=== PATIENT | female | born 1945 | race Caucasian/White ===

== ENCOUNTER 2019-05-20 15:14 | Outpatient (CLI) | payer MEDICARE, OTHER, SELFPAY ==
--- NOTE | 2019-05-20 15:18 | DI.RAD.S_ITS ---
PROCEDURE: PAIN SI JOINT INJECTION INDICATIONS: SACROCCOCYGEAL DISORDER FINDINGS: Fluoroscopic spot filming was performed to verify placement of spinal needles at the right inferior sacroiliac joint level(s), as labeled on the films. Appropriate location(s) of the needle tip(s) was confirmed by injection of iodinated contrast. IMPRESSION: Successful needle tip localization for right inferior sacroiliac joint injection. Dictated by: Leobardo Syed M.D. on 05/20/2019 at 16:41 Approved by: Leobardo Syed M.D. on 05/20/2019 at 16:42
[2019-05-20 15:34] VITALS: BP 145/64; PULSE 59; RESP 16; TEMP 36.5; O2SAT 98
[2019-05-20 15:44] VITALS: BP 155/61; PULSE 59; RESP 15; O2SAT 99
[2019-05-20 15:49] VITALS: BP 146/55; PULSE 57; RESP 16; O2SAT 99
[2019-05-20] MEDS: BETAMETHASONE 30 MG/5 ML MDV 12 MG INJ (15:52)
[2019-05-20] MEDS: IOPAMIDOL 15 ML VIAL 3 ML INJ (15:52)
[2019-05-20 15:53] VITALS: BP 151/64; PULSE 53; RESP 16; O2SAT 98
--- NOTE | 2019-05-20 15:54 | PC.NURSE ---
NO SEDATION MEDS GIVEN DURING PROCEDURE. ASSISTING PT OFF TABLE AND TRANSPORTING TO POST PROC AREA IN STABLE CONDITION. PASSING RN CARE OF PT OFF TO MORENITA Crawford RN.
[2019-05-20 15:56] VITALS: BP 142/70; PULSE 61; RESP 18; O2SAT 97
--- NOTE | 2019-05-20 15:59 | P.PCN_ITS ---
Procedures Date/Time Date of procedure: 05/20/19 Time of procedure: 15:59 General Procedure description: PREOP Dx: Sacroiliac joint pain/DJD POST OP DX: Sacroiliac Joint Pain/DJD Procedures: Fluoroscopic guided contrast controlled right sacroiliac joint injection Physician: Bentley Barriga D.O. Indications: Lousie is referred by for treatment of right sacroiliac joint DJD Description of procedure Fluoroscopic guided, contrast controlled right sacroiliac joint injection Following review of allergies and review of potential side effects and complications, including, but not necessarily limited to, infection, allergic r eaction, local tissue breakdown, temporary as well as permanent nerve injury, paralysis, stroke and possible , the patient indicated that they understood and agreed to proceed. An informed consent was signed by the patient, witnessed by a nurse, and placed in the patient's chart. Additionally, other treatment options including modalities, medications, and physical therapy were reviewed with the patient. After review of previous anaesthesic history and IV conscious sedation the patient was deemed safe to proceed with todays procedure with IV conscious sedation as ASA class II designation. Safety time-out was performed to confirm patient ID, procedure to be performed and site of procedure. IV sedation was deemed unnecessary and thus not administered by the RN after DO order, titrated to patient comfort during the course of the procedure while the patient remained responsive to all verbal commands In the prone position following sterile prep and drape of the pelvic region, the hyper lucency on in the inferior aspect of the sacroiliac joint was identified fluoroscopically the skin was anesthetized be a 25 gauge 1 eventual with approximately 2cc of 1% lidocaine solution. At this point, a 22 gauge 3 in spinal needle was atraumatically introduced and advanced under fluoroscopic guidance into the inferior aspect of the right sacroiliac joint. Following negative aspiration, approximately 0.3 cc of Isovue-300 was injected confirming intra-articular placement without vascular uptake. Radiographic data, including multiple fluoroscopic views of the pelvis, reveals a spinal needle in the sacroiliac joint hyper lucent zone. Subsequent view show flow contrast tear superiorly and inferiorly within the joint capsule without vascular intrathecal uptake. At this point a total of 1cc or 2% lidocaine was combined with 1cc of 6mg of betamethasone was injected without incident. The procedure tolerated the procedure well without signs or symptoms of complications prior to transfer to the recovery area continued monitoring without incident. The patient was then transferred to the recovery area with a bur observed for an appropriate time after the injection. The patient reverted a vas score of 7 prior to the procedure and postprocedure vas of 1. Total fluoroscopy time: 7 sec Total conscious sedation time: 24 min Postop instructions The patient was provided with a pain like to continue to record the patient's response to the target specific procedure prior to the patient's follow-up visit with the referring physician. Additionally, specific post injection care instructions and a contact number to our office were provided if concerns arise regarding the possible complications associated with procedure are suspected. Bentley Barriga D.O. Complications: none
--- NOTE | 2019-05-20 16:09 | PC.NURSE ---
returned from procedure via w/c, able to transfer self to recliner, ice water provided and tolerated. assumed care from Shivani. reported, no sedation used.
--- NOTE | 2019-05-20 16:12 | PC.NURSE ---
no sedation recieved with procedure
== END 2019-05-20 16:14 | disposition home or self-care (01) ==
LOC: RAD 15:17
PROVIDERS: PCP Family Medicine; Referring Provider Physical Medicine & Rehabilitation; Visit Provider Physical Medicine & Rehabilitation
DX: M53.3 Sacrococcygeal disorders, not elsewhere classified (principal); M47.898 Other spondylosis, sacral and sacrococcygeal region
CPT/HCPCS: 27096; J0702; J2250; J3010

== ENCOUNTER → 2019-09-03 10:19 | Outpatient (CLI) | payer MEDICARE, OTHER, SELFPAY ==
[2019-09-04 07:44] LABS: COVID19 Sendout Not Detected (Not Detect)
== END ==
PROVIDERS: PCP Family Medicine; Visit Provider Physician Assistant
DX: Z01.818 Encounter for other preprocedural examination (principal)
CPT/HCPCS: 87635

== ENCOUNTER 2019-09-06 09:44 | Outpatient (CLI) | payer MEDICARE, OTHER, SELFPAY ==
[2019-09-06] VITALS (9 sets, daily range): BP systolic 142–196; BP diastolic 51–103; PULSE 52–59; RESP 14–16; TEMP 36.2; O2SAT 96–100
--- NOTE | 2019-09-06 09:46 | DI.RAD.S_ITS ---
PROCEDURE: PAIN L/SI FACET INJ/BLK 1STL INDICATIONS: SPONDYLOSIS FINDINGS: Fluoroscopic spot filming was performed to verify placement of spinal needles at the L5-S1 level(s), as labeled on the films. Appropriate location(s) of the needle tip(s) was confirmed by injection of iodinated contrast. Dictated by: Puneet Molina M.D. on 09/06/2019 at 13:02 Approved by: Puneet Molina M.D. on 09/06/2019 at 13:03
[2019-09-06] MEDS: MIDAZOLAM 5 MG/5 ML VIAL IV (11:08)
[2019-09-06] MEDS: IOPAMIDOL 15 ML VIAL 3 ML INJ (11:14)
[2019-09-06] MEDS: BUPIVACAINE 0.5% (PF) VIAL 2 ML INJ (11:14)
--- NOTE | 2019-09-06 11:15 | PC.NURSE ---
ASSISTING PT OFF TABLE AND TRANSPORTING TO POST PROC AREA IN STABLE CONDITION. PASSING RN CARE OFF TO CARMEN SAMUEL.
--- NOTE | 2019-09-06 11:21 | P.PCN_ITS ---
Procedures Date/Time Date of procedure: 09/06/19 Time of procedure: 11:21 General Procedure description: POST OP DIAGNOSIS 1. FACET ARTHROPATHY PROCEDURES 1. Right L5 and S1 MB BLOCKS PHYSICIAN: DO ROXANNE Fu Louise is referred by for treatment of Right Axial LBP. DESCRIPTION OF PROCEDURE Fluoroscopically guided, contrast-controlled right L5 and S1 medial branch blocks with 0.5cc of 0.5% Marcaine. Following review of allergy and review of potential side effects and complications, including, but not necessarily limited to, infection, allergic reaction, local tissue breakdown, nerve injury, paralysis, stroke and possible , the patient indicated that the patient understood and agreed to proceed. An informed consent document was signed by the patient, witnessed by a nurse, and placed in the patient's chart. After review of previous anaesthesic history and IV conscious sedation the patient was deemed safe to proceed with todays procedure with IV conscious sedation as ASA class II designation. Safety time-out was performed to confirm patient ID, procedure to be performed and site of procedure. IV sedation was accomplished with a combination of 2mg of Versed was administered by the RN after DO order, titrated to patient comfort during the course of the procedure while the patient remained responsive to all verbal commands In the prone position, following sterile prep and drape of the lumbar region, the right L5 and S1 anatomical location of the medial branch of the dorsal ramus was identified fluoroscopically. Subsequently an anesthetic skin wheal using 1% lidocaine solution was initiated at each of the anatomical spots. Subsequently then a 22-gauge 3.5-inch spinal needle was atraumatically introduced and advanced under fluoroscopic guidance at each of the corresponding sites at the right L5 and S1 MB. After negative aspiration, 0.2 cc of Isovue 200 was injected, confirming placement without vascular or intrathecal uptake. Subsequently then 0.5 cc of 0.5% Marcaine solution was injected at each of the corresponding sites at the right L5 and S1 medial branch locations. The patient tolerated the procedure well without signs or symptoms of complications. The procedure tolerated the procedure well without signs or symptoms of complications prior to transfer to the recovery area continued monitoring without incident. Post-procedure, the patient was monitored initiating provocative activities to measure the amount of relief from block of the facetogenic pain. The patient reported a VAS of 7 prior to the procedure and a post-procedure VAS of 1. It has been a pleasure to assist in the diagnostic and therapeutic care of your patient. Total Fluoroscopy Time: 4seconds Total Conscious Sedation Time: 24min POST OP INSTRUCTIONS The patient was provided with a Pain Log to complete over the next several hours and subsequent days prior to the patient's follow up with the ordering physician. If the patient has educational program assistant relief to the solution applied, then they may be a candidate for medial branch rhizotomy. The patient is aware, was provided, once again, with a Pain Log and will follow up with the referring physician for review and clinical correlation Bentley Barriga DO Complications: none
--- NOTE | 2019-09-06 11:44 | PC.NURSE ---
arrived to pre proc room via . Stable transfer from wc to chair, resumed monitoring by Tori Dominguez
== END 2019-09-06 11:45 | disposition home or self-care (01) ==
LOC: RAD 09:46
PROVIDERS: PCP Family Medicine; Referring Provider Physical Medicine & Rehabilitation; Visit Provider Physical Medicine & Rehabilitation
DX: M47.817 Spondylosis without myelopathy or radiculopathy, lumbosacral region (principal); M54.5 Low back pain
CPT/HCPCS: 64493; 99152; J0702; J2250; J3010

== ENCOUNTER → 2019-11-14 09:54 | Outpatient (CLI) | payer MEDICARE, OTHER, SELFPAY ==
[2019-11-15 03:50] LABS: COVID19 Sendout Not Detected (Not Detect)
== END ==
PROVIDERS: PCP Physician Assistant; Visit Provider Physician Assistant
DX: Z11.59 Encounter for screening for other viral diseases (principal)
CPT/HCPCS: 87635

== ENCOUNTER 2019-11-17 07:33 | Outpatient (CLI) | payer MEDICARE, OTHER, SELFPAY ==
[2019-11-17] VITALS (10 sets, daily range): BP systolic 152–210; BP diastolic 68–92; PULSE 48–57; RESP 6–21; TEMP 36.4; O2SAT 98–99
--- NOTE | 2019-11-17 07:36 | DI.RAD.S_ITS ---
PROCEDURE: PAIN L/S MED/LAT N RFA INDICATIONS: SPONDYLOSIS COMPARISON: None. FINDINGS: Fluoroscopic spot filming was performed to verify placement of spinal needles at the L5 and S1 level(s), as labeled on the films. Appropriate location(s) of the needle tip(s) was confirmed by injection of iodinated contrast. Dictated by: Puneet Molina M.D. on 11/17/2019 at 9:25 Approved by: Puneet Molina M.D. on 11/17/2019 at 9:25
[2019-11-17] MEDS: fentaNYL 100 MCG/2 ML INJ 50 MCG IV (08:35)
[2019-11-17] MEDS: MIDAZOLAM 5 MG/5 ML VIAL IV (08:35)
[2019-11-17] MEDS: BUPIVACAINE 0.5% (PF) VIAL 2 ML INJ (08:41)
--- NOTE | 2019-11-17 08:56 | P.PCN_ITS ---
Date/Time/Diagnoses Date of procedure: 11/17/19 Time of procedure: 08:56 Pre-procedure diagnosis: 1. RECALCITRANT FACET ARTHROPATHY Post-procedure diagnosis: same Procedure Notes Procedure: 1. RIGHT L5 MEDIAL BRANCH RADIOFREQUENCY NEUROTOMY AND RIGHT S1 DORSAL RAMUS BRANCH RADIOFREQUENCY NEUROTOMY Indications: Louise is referred by CHITO Anderson for treatment of facet arthropathy. Physician: Bentley Barriga Total Fluoroscopy time (seconds): 13 Total sedation minutes: 16 Complications: none Procedure in detail & Post-procedure care: DESCRIPTION OF PROCEDURE Right L5 medial branch radiofrequency neurotomy and right S1 dorsal ramus branch radiofrequency neurotomy under fluoroscopy with conscious sedation. The patient is well known to this clinic having undergone previous facet injections with good but temporary relief. The patient has experienced appropriate, concordant relief with previous facet and median branch blocks but the patient's pain has been recalcitrant to further conservative measures. Therefore, based upon the patient's relief and persistent symptoms, the patient is considered an appropriate candidate for facet rhizotomy. All of the patient's questions regarding the risks versus benefits of the procedure, including, but not limited to, bleeding, infection, temporary as well as lasting nerve injury, paralysis, stroke, and , as well treatment alternatives were answered to satisfaction. After review of previous anaesthesic history and IV conscious sedation the patient was deemed safe to proceed with today?s procedure with IV conscious sedation as ASA class II designation. Safety time-out was performed to confirm patient ID, procedure to be performed and site of procedure. IV sedation was accomplished with a combination of 2mg of Versed and 50mcg of Fentanyl was administered by the RN after DO order, titrated to patient comfort during the course of the procedure while the patient remained responsive to all verbal commands. After obtaining informed consent, denial of pertinent drug allergies, as well as being made aware of the potential risks of bleeding, infection, spinal cord trauma, paralysis, temporary and permanent nerve damage, seizure, stroke, and possible , the patient was brought to the fluoroscopy suite and positioned prone on the fluoroscopy table. The lumbar region was prepped with Betadine and covered with a fenestrated drape in the usual sterile fashion. Appropriate monitors applied including pulse oximeter, pulse, and blood pressure for regular monitoring throughout the procedure. After local infiltration using 1% lidocaine, under fluoroscopic guidance, a 10- cm RF insulated needle with a 10-mm active tip was positioned parallel to the junction of the right sacral ala and the superior articulating process where the S1 dorsal ramus resides. Needle placement was confirmed with sensory stimulation at 50 Hz, with motor stimulation of .5v on the right which produced local stimulation without radicular component. The stimulation was then increased to 2v with, once again, only local multifidus stimulation without radicular component. This was then followed by two discreet lesions performed at 80 degrees Celsius for 90 seconds each. The needle was then removed and the identical procedure was performed along the length of the right L5 medial branch with motor stimulation at .7v on the right. The patient tolerated the procedure well without signs or symptoms of complications prior to transfer to the recovery area continued monitoring without incident. The patient was then transferred to the recovery area where they were observed for an appropriate period of time after the injection. The patient was then transferred to the recovery area where they were observed for an appropriate period of time after the injection. The patient reported a VAS score of 5 prior to the procedure and a post- procedure VAS of 0. POST OP INSTRUCTIONS The patient was provided a Pain Log to continue to record the patient's response to the target-specific procedure prior to the patient's follow-up visit with the referring physician. Additionally, specific post-injection care instructions and a contact number to our office were provided if concerns arise regarding possible complications associated with the procedure are suspected.
--- NOTE | 2019-11-17 13:36 | PC.NURSE ---
0900 ST depression noted on tele. Dr. Barreto notified and MD evaluated patient. EKG ordered and done. Patient denied pain. HR in the 40s and 50s, bp elevated. Per Dr. Barreto patient may discharge and call her implementation consultant today. Dr. Barreto reported he would also call and notify the implementation consultant. Patient and son notified, with patient's permission.
== END 2019-11-17 09:52 | disposition home or self-care (01) ==
LOC: RAD 07:35
PROVIDERS: PCP Physician Assistant; Referring Provider Physician Assistant; Visit Provider Physical Medicine & Rehabilitation
DX: M47.817 Spondylosis without myelopathy or radiculopathy, lumbosacral region (principal); I49.9 Cardiac arrhythmia, unspecified
CPT/HCPCS: 64635; 93005; 93010; 99152; J2250; J3010

== ENCOUNTER → 2019-11-17 10:45 | Outpatient (CLI) | payer MEDICARE, OTHER, SELFPAY | PROVIDERS: PCP Physician Assistant; Referring Provider Physical Medicine & Rehabilitation; Visit Provider Physical Medicine & Rehabilitation | DX: Z01.818 Encounter for other preprocedural examination (principal) ==

== ENCOUNTER → 2019-12-14 09:40 | Outpatient (CLI) | payer MEDICARE, OTHER, SELFPAY ==
--- NOTE | 2019-12-14 09:43 | DI.RAD.S_ITS ---
PROCEDURE: XR LUMBAR SPINE MIN 4V INDICATIONS: Right-sided low back pain TECHNIQUE: 5 views of the lumbar spine were acquired. COMPARISON: None. FINDINGS: Bones: 5 nonrib-bearing vertebrae are present. There is dextroscoliotic bony alignmen, moderate in severity, centered at L3 t. No vertebral body compression fractures. No suspicious bony lesions. Degenerative disc disease is moderate along the lumbosacral spine and prominent at L3-4 and L4-5, and present to a near severe degree at L5-S1. Facet osteoarthritis shows a similar progression of prominence from L3 inferiorly. Soft tissues: Overlying bowel gas pattern is normal. No suspicious soft tissue calcifications. Oblique images: No pars defects. IMPRESSION: Moderate convex rightward scoliosis centered at L3 with degenerative disc disease and facet osteoarthritis that becomes progressively more prominent from L3 inferiorly and is most pronounced at L5-S1. Spinal and foraminal stenosis is present. Dictated by: Leobardo Syed M.D. on 12/14/2019 at 12:09 Approved by: Leobardo Syed M.D. on 12/14/2019 at 12:11
== END ==
PROVIDERS: PCP Physician Assistant; Referring Provider Physical Medicine & Rehabilitation; Visit Provider Physical Medicine & Rehabilitation
DX: M47.817 Spondylosis without myelopathy or radiculopathy, lumbosacral region (principal); M47.816 Spondylosis without myelopathy or radiculopathy, lumbar region; M51.36 Other intervertebral disc degeneration, lumbar region; M51.37 Other intervertebral disc degeneration, lumbosacral region; M41.86 Other forms of scoliosis, lumbar region; M51.26 Other intervertebral disc displacement, lumbar region; M53.3 Sacrococcygeal disorders, not elsewhere classified
CPT/HCPCS: 72110; 99213

== ENCOUNTER → 2020-03-12 09:51 | Outpatient (CLI) | payer MEDICARE, OTHER, SELFPAY ==
[2020-03-12 10:48] LABS: COVID19 -Nasal RAPID Negative (Negative)
== END ==
PROVIDERS: PCP Physician Assistant; Visit Provider Physical Medicine & Rehabilitation
DX: Z01.812 Encounter for preprocedural laboratory examination (principal); Z20.828 Contact with and (suspected) exposure to other viral communicable diseases
CPT/HCPCS: 87635; C9803

== ENCOUNTER 2020-03-13 09:27 | Outpatient (CLI) | payer MEDICARE, OTHER, SELFPAY ==
[2020-03-13] VITALS (10 sets, daily range): BP systolic 129–168; BP diastolic 58–72; PULSE 58–66; RESP 13–32; TEMP 36.2; O2SAT 97–100
--- NOTE | 2020-03-13 09:29 | DI.RAD.S_ITS ---
PROCEDURE: PAIN L/S TRANSFORAM INJECT JABARI COMPARISON: None. INDICATIONS: spondylosis FINDINGS: Fluoroscopic spot filming was performed to verify placement of spinal needles at the L4-L5 level(s), as labeled on the films. Appropriate location(s) of the needle tip(s) was confirmed by injection of iodinated contrast. Dictated by: Puneet Molina M.D. on 03/13/2020 at 12:34 Approved by: Puneet Molina M.D. on 03/13/2020 at 12:34
[2020-03-13] MEDS: BUPIVACAINE 0.25% (PF) VIAL 2 ML INJ (10:44)
[2020-03-13] MEDS: BETAMETHASONE 30 MG/5 ML MDV 6 MG INJ (10:44)
[2020-03-13] MEDS: IOPAMIDOL 15 ML VIAL 3 ML INJ (10:44)
[2020-03-13] MEDS: DEXAMETHASONE 10 MG/ML VIAL 20 MG INJ (10:44)
[2020-03-13] MEDS: MIDAZOLAM 5 MG/5 ML VIAL IV (10:50)
--- NOTE | 2020-03-13 11:01 | PM.PROC.IR.1 ---
Date/Time/Diagnoses Date of procedure: 03/13/20 Time of procedure: 11:01 Pre-procedure diagnosis: 1. FORAMINAL STENOSIS WITH LE SYMPTOMS Post-procedure diagnosis: same Procedure Notes Procedure: 1. FLUOROSCOPICALLY GUIDED CONTRAST CONTROLLED TRANSFORAMINAL EPIDURAL STEROID INJECTION - BILATERAL L4/5 Indications: Louise Monroe is referred by CHITO Anderson for treatment of Foraminal Stenosis with Bilateral LE Symptoms Physician: Bentley Barriga Total Fluoroscopy time (seconds): 21 Total sedation minutes: 10 Complications: none Procedure in detail & Post-procedure care: FINDINGS Foraminal Nerve Root Compression secondary to disc disease and facet hypertrophy DESCRIPTION OF PROCEDURE Following review of allergy and review of potential side effects and complications, including, but not necessarily limited to, infection, allergic reaction, local tissue breakdown, stroke, temporary or permanent nerve injury, paralysis, and possible , the patient indicated that the patient understood and agreed to proceed. An informed consent document was signed by the patient, witnessed by a nurse, and placed in the patient's chart. Additionally, other treatment options including medications, modalities, and physical therapy were reviewed with the patient. After review of previous anaesthesic history and IV conscious sedation the patient was deemed safe to proceed with today?s procedure with IV conscious sedation as ASA class II designation. Safety time-out was performed to confirm patient ID, procedure to be performed and site of procedure. IV sedation was accomplished with a combination of 2mg of Versed administered by the RN after DO order, titrated to patient comfort during the course of the procedure while the patient remained responsive to all verbal commands In the prone position following sterile prep and drape of the lumbar region, the left L4/5 posterior neuroforamen was identified fluoroscopically. The skin was anesthetized via a 25-gauge 1.5-inch needle with 1% lidocaine solution. At this point, a 25-gauge 3.5-inch spinal needle was atraumatically introduced and advanced under fluoroscopic guidance through the posterior left L4/5 neuroforamen to approximately the anterior aspect of the canal. Depth was confirmed on lateral view. Following negative aspiration, injection of approximately 1.5 cc of Isovue 200 under live fluoroscopy in the AP view confirmed excellent flow along the nerve root, into the epidural space without vascular or intrathecal uptake observed. Attention was then refocused to the right where the identical procedure was then replicated on the right. Radiological data, including multiple fluoroscopic views of the lumbosacral spine, reveal a spinal needle at the bilateral L4/5 posterior neuroforamen. Subsequent views show flow of contrast material flowing superiorly and inferiorly along the nerve root confirming epidural flow. Subsequently, a test dose of 1.5 cc of 1% lidocaine solution was administered and patient was observed for two minutes for signs or symptoms of complications, including abdominal pain, shortness of breath, bilateral upper or lower extremity weakness, nausea and vomiting, prior to steroid injection. At this point, a total of 3cc or 20mg of dexamethasone and 6mg of betamethasone was injected without incident. The procedure tolerated the procedure well without signs or symptoms of complications prior to transfer to the recovery area continued monitoring without incident. The patient was then transferred to the recovery area where they were observed for an appropriate time after the injection. The patient reported a VAS score of 9 in the shower prior to the procedure and a post-procedure VAS of 1. POST OP INSTRUCTIONS The patient was provided a Pain Log to continue to record their response to the target-specific procedure prior to follow-up visit with their referring physician. Additionally, specific post-injection care instructions and a contact number to our office were provided if concerns arise regarding possible complications associated with the procedure are suspected.
== END 2020-03-13 11:20 | disposition home or self-care (01) ==
LOC: RAD 09:28
PROVIDERS: PCP Physician Assistant; Referring Provider Physical Medicine & Rehabilitation; Visit Provider Physical Medicine & Rehabilitation
DX: M48.061 Spinal stenosis, lumbar region without neurogenic claudication (principal); M51.16 Intervertebral disc disorders with radiculopathy, lumbar region
CPT/HCPCS: 64483; 99152; J0702; J1100; J2250; J3010

== ENCOUNTER → 2020-06-09 11:48 | Outpatient (CLI) | payer MEDICARE, OTHER, SELFPAY ==
[2020-06-09 12:56] LABS: COVID19 -Nasal RAPID Negative (Negative)
== END ==
PROVIDERS: PCP Physician Assistant; Visit Provider Nurse Practitioner
DX: Z20.822 Contact with and (suspected) exposure to COVID-19 (principal)
CPT/HCPCS: 87635

== ENCOUNTER 2020-06-11 06:05 | Inpatient (IN) | payer MEDICARE, OTHER, SELFPAY ==
[2020-06-11] VITALS (20 sets, daily range): BP systolic 118–186; BP diastolic 48–90; PULSE 60–77; RESP 8–98; TEMP 35.9–36.6; O2SAT 10–100; BMI 23.6
[2020-06-11] MEDS: LACTATED RINGERS 1,000 ML 42 ML IV ×2 (07:33→09:28)
--- NOTE | 2020-06-11 07:40 | PM.PREOP ---
Pre-operative Note COVID-19 COVID-19 status: Negative Result date/Date tested (Pos, Neg/Pending): 06/09/20 Interval Note History & Physical reviewed/Exam performed by Physician: Yes Changes to H&P: No
[2020-06-11] MEDS: CLINDAMYCIN 600 MG/50 ML PIGGYBACK 50 MG IV (07:45)
--- NOTE | 2020-06-11 08:34 | SUR.OPER ---
Prone on spine table, head in foam head support, padded chest and pelvic supports, gel pad at knees, lower legs supported by pillows; nipples, genitalia and toes free of pressure, arms secured on foam padded arm boards at <90 degrees abduction. Tape over blanket at thigh secured to table.
[2020-06-11] MEDS: BUPIVACAINE 0.5% W/ EPI (PF) 30 ML VIAL INJ (08:42)
[2020-06-11] MEDS: BUPIVACAINE LIPOSOME 266 MG/20 ML VIAL INJ (08:42)
--- NOTE | 2020-06-11 11:51 | P.OP_ITS ---
Operative Date/Time/Diagnoses Date of procedure: 06/11/20 Time of procedure: 08:09 Pre-op diagnosis: 1. L3-4, L4-5, L5-S1 spinal stenosis 2. Lumbar scoliosis 3. Hx of lumbar laminectomy with epidural scarring and radiculopathy Post-op diagnosis: same Procedure & Clinicians Procedure: 1. L4-5, L5-S1 Postero-lateral and posterior interbody fusion 2. L4-5, L5-S1 interbody cage placement. 3. L4-5, L5-S1 decompressive laminectomy with bilateral facetecomies 4. L4-5, L5-S1 Posterior segmental instrumentation 5. L3-4 right hemilaminectomy 6. Harrold of bone marrow from iliac crest 7. Utilization of microsurgical technique and operating microscope Same procedure as scheduled: Yes Indications: Patient has been having chronic back pain and worsening lumbar radiculopathy. Patient failed multiple conservative management with worsening pain weakness and numbness in her lower extremity. Patient has been having difficulty performing activity of daily living. After discussing risks benefits of treatment options, patient elected proceed with surgery. Surgeon: Antelmo Patten Metallurgical Inspector: Flora Shaw Click Yes if Unassisted: No Anesthesia Type: General Operative Notes Closure Type: primary Specimen(s): none sent Prosthetic devices, grafts, tissues, transplants, or devices: Globus revolve screws, Rise cages Applied: catheter Estimated Blood Loss (mL): 50 Blood products transfused: none Procedure in detail: Patient was seen in the preoperative area. Risks and benefits of the surgery was discussed with the patient. Informed consent was obtained from the patient and placed in the chart. Surgical site was marked. Patient was taken to the operative room. General anesthesia was administered. Prophylactic antibiotic was given to the patient less than 30 min before the incision was made. Patient was placed into a prone position on the Mau table. Patient's back was then prepped and draped in the sterile fashion. Time- out was performed at this time. Using AP and lateral C-arm imaging the interval between L4-S1 was identified and marked on patient's back. A 2 inch incision 2 in from midline was made on the right side first. The fascia was incised in line with skin incision. Globus MARS retractors was placed inside the incision and docked onto the L4 and L5 lamina. Using microsurgical technique and operating microscope, a L4 and L5 laminectomy and L4-5 L5-S1 facetectomy was performed using a Kerrison rongeur. Patient was found have severe neural foraminal stenosis L3 levels. During the process of decompression more than 75% of bilateral L4-5 L5-S1 facets were removed in order to decompress the spinal canal and the lateral recess. The L4- 5 L5-S1 level was grossly unstable after the decompression was completed and requiring the fusion procedure. The disc space at L4-5, L5-S1 was identified. And a total diskectomy was performed at L4-5, L5-S1 level. The endplates were decorticated using a rasp and shaver. The total diskectomy and decortication was performed at L4-5, L5-S1 level in order to to accomplish a L4-5, L5-S1 fusion. The local bone from the laminectomy and facetectomy was saved for local bone grafting. After the total diskectomy and decortication was completed, Trifecta bone graft material was combined with local bone that was harvested earlier. At this time, a separate skin is incision was made over the iliac crest. A Jamshidi needle was inserted into the iliac crest through a separate skin incision. 5 cc of bone marrow aspiration was obtained through the separate skin incision using a Jamshidi needle from the iliac crest. The bone marrow aspiration was combined with local bone and the Trifecta bone grafting material. The bone grafting material was placed into the L4-5, L5-S1 interbody space along with two cages, one expandable cage at each level. The cages were expanded to their maximum height using the torque limiting screwdriver. The MARS retractor was then redirected over the L3-4 level. Using the micro surgical technique and operative microscope a L3 a hemilaminectomy was performed. Kerrison rongeur was used to undercut the facet to further decompress the lateral recess. The neural foramen was palpated and was patent o nce decompression was completed. \ At this time a mirror image incision was made on the left side. The fascia was incised in line with the skin incision. Globus MARS retractor was inserted and docked onto the L4-5, L5-S1 posterolateral gutter. Using the power drill, posterior-lateral decortication was performed at L4-5, L5-S1 level until bleeding cortical bone was identified. The remaining bone grafting material was placed into the L4-5 L5-S1 posterior lateral gutter he order to accomplish posterolateral fusion at the L4-5 L5-S1 levels. Using the double C-arm technique, pedicle screws were placed into the L4, L5, S1 pedicles bilaterally. This was done by placing the Jamshidi needle into the pedicles, then placing the guidewires over the Jamshidi needle, and finally placing the cannulated screws over the guidewires bilaterally. After the pedicle screws were placed, 2 titanium rods was locked into the heads of the pedicle screws using locking caps and torque limiting screwdriver. Total 6 pedicles screws were placed. After all the hardware was placed, and confirmed with AP and lateral C-arm imaging, the wound was then irrigated with sterile normal saline and packed with Ray-Bernadine g auze for 3 min to accomplish hemostasis. After the gauze was removed the deep fascia was closed with #1 Vicryl suture. The subcutaneous layer was closed with 2-0 Vicryl. The skin was closed with skin simón. Patient tolerated the procedure well. There were no complications. Complications: none Post-operative Condition: stable Disposition: PACU Plan for aftercare: Admit to inpatient hospital
--- NOTE | 2020-06-11 11:58 | DI.RAD.S_ITS ---
PROCEDURE: XR LUMBAR SPINE 2-3V INDICATIONS: L4-5, L5-S1 TLIF TECHNIQUE: 2 views of the lumbar spine were acquired. COMPARISON: [facility], , XR LUMBAR SPINE MIN 4V, 12/14/2019, 9:34. FINDINGS: 2 spot fluoroscopic intraoperative views demonstrating postsurgical changes related to L4-S1 posterior spinal fixation with interbody cage grafts. The hardware appears grossly intact. There is expected intraoperative alignment. Dictated by: Puneet Molina M.D. on 06/11/2020 at 12:11 Approved by: Puneet Molina M.D. on 06/11/2020 at 12:13
[2020-06-11] MEDS: HYDROMORPHONE 2 MG INJ IV ×4 (12:05→12:40)
[2020-06-11] MEDS: OXYCODONE/ACETAMINOPHEN 5/325 TABLET 1 TAB PO ×2 (12:24→12:55)
--- NOTE | 2020-06-11 12:53 | PC.NURSE ---
Day shift: Pt not on AC unit at this time ([id number]).
--- NOTE | 2020-06-11 13:05 | SUR.PHASEI ---
Bilat hearing aids returned to pts ears. Report called to CARMEN Kerr. Pt transferred to 219 by Ben Keys CNA and Emi Monahan RN with all belongings.
--- NOTE | 2020-06-11 13:19 | PC.NURSE ---
Day shift: On AC unit at approx 1309 from PACu. She is A&Ox4. Reports pain is better and on the way down at this time. Dressing on back is CDI. VS WNL. RA 97%. Denies any nausea or chest pain. Oriented to room and call light. Can wiggle toes but can't feel toes when they are touched. Call light in reach. Agrees to not get OOB w/o help from staff. Will continue w/ plan of care.
[2020-06-11] MEDS: SODIUM CHLORIDE 0.9% 1,000 ML 100 ML IV ×2 (13:24→23:56)
[2020-06-11] MEDS: OXYCODONE IR 10 MG TABLET PO ×3 (13:43→21:37)
[2020-06-11] MEDS: hydrOXYzine pamoate 25 MG CAPSULE PO (13:44)
[2020-06-11] MEDS: GLIMEPIRIDE 2 MG TABLET 4 MG PO (13:48)
[2020-06-11] MEDS: CLINDAMYCIN 900 MG/50 ML PIGGYBACK 50 MG IV (15:43)
[2020-06-11] MEDS: HYDROMORPHONE 0.5 MG INJ IV (15:44)
[2020-06-11] MEDS: ONDANSETRON 4 MG/2 ML INJ IV (15:44)
--- NOTE | 2020-06-11 15:53 | PT-IP ANOTE ---
Received PT orders and reviewed the chart. Contacted pt for initial evaluation but pt states she is in too much pain to participate. Educated pt on importance of early mobility and assist her to reposition on the bed. Will follow up tomorrow morning for PT eval.
[2020-06-11] MEDS: hydroCHLOROthiazide 25 MG TABLET PO (19:27)
[2020-06-11] MEDS: AMLODIPINE 5 MG TABLET PO (19:27)
[2020-06-11] MEDS: TELMISARTAN 40 MG TABLET 80 MG PO (19:27)
[2020-06-11] MEDS: SENNOSIDES 8.6 MG TABLET 17.2 MG PO (21:26)
[2020-06-11] MEDS: INSULIN DETEMIR 100 UNIT/ML INSULN.PEN 15 UNIT SUBCUT (21:26)
[2020-06-11] MEDS: PRAZOSIN 1 MG CAPSULE PO (21:26)
[2020-06-11] MEDS: DOCUSATE 100 MG CAPSULE PO (21:26)
--- NOTE | 2020-06-11 23:17 | PC.NURSE ---
BP elevated to 186/90 at 18:25. Patient had not taken her blood pressure medications today. Contaced Dr. Rosenthal who okayed for her daily amlodipine, hydrochlorothiazide, and Telmisartan to be given. BP went down to 162/78 at 20:00. Pain 5/70, given PRN oxycodone 10 mg 2X and hydromorphone 0.5 mg IV 1X. B, 302. Orlando catheter patent, clear yellow urine. Dressing on back cdi. NS @ 100ml/hr. Call light within reach.
[2020-06-12] MEDS: CLINDAMYCIN 900 MG/50 ML PIGGYBACK 50 MG IV (00:07)
[2020-06-12] MEDS: OXYCODONE IR 10 MG TABLET PO ×5 (00:07→21:35)
[2020-06-12 00:10] VITALS: BP 135/61; PULSE 72; RESP 18; TEMP 36.8; O2SAT 97
[2020-06-12 04:11] VITALS: BP 126/56; PULSE 68; RESP 16; TEMP 36.5; O2SAT 97
[2020-06-12 05:50] LABS: Hematocrit 28.5 % (36-46); Hemoglobin 9.4 g/dL (12.0-16.0)
[2020-06-12] MEDS: LEVOTHYROXINE 50 MCG TABLET PO (06:22)
[2020-06-12 07:15] VITALS: BP 134/57; PULSE 67; RESP 19; TEMP 36.7; O2SAT 94
--- NOTE | 2020-06-12 07:55 | PM.PNPO.1 ---
Subjective Subjective Date Patient Seen: 06/12/20 Time Patient Seen: 07:55 Interval history: POD #1 s/p L4-S1 TLIF with Dr. Patten. Patient has not been out of bed yet. She has a Orlando catheter in place. She complains of pain down her legs when she moves. her pain is well controlled with oxycodone, and Vistaril. She complains of heartburn this morning. Exam Vital Signs (past 8 hours): - 06/12/20 00:10 06/12/20 04:11 06/12/20 07:15 Temperature 98.2 F 97.7 F 98.1 F Pulse Rate 72 68 67 Respiratory Rate 18 16 19 Blood Pressure 135/61 126/56 L 134/57 L Pulse Oximetry 97 97 94 Oxygen Delivery Method Room Air Oxygen Flow Rate 0 Narrative Exam Narrative: Patient lying in bed no acute distress. She is alert and oriented x3. Calves are soft compressible, nontender bilaterally. SCDs on and functional. She is able to actively dorsiflex plantar flex. Dorsalis pedis pulses 2+. Objective Labs Result Diagrams: 06/12/20 05:05 Labs: Laboratory Results - last 24 hr 06/12/20 05:05 Hgb 9.4 L Hct 28.5 L PFSH Medical History Abnormal EKG Arthritis Cardiac arrhythmia Degenerative disc disease Diabetes mellitus, type 2 Disease of thyroid gland Edema Essential (primary) hypertension Facet arthropathy, lumbosacral Fluid retention Foraminal stenosis of lumbar region Herniated nucleus pulposus, L3-4 right Herniated nucleus pulposus, L4-5 History of echocardiogram (~02/15/20) Hyperlipidemia Hypertension Lumbar canal stenosis Multilevel foraminal stenosis Osteoarthritis Osteoarthritis of spine with radiculopathy, lumbar region Prolapse of bladder Pulled hamstring Pure hypercholesterolemia Rectal pain Sacral dysfunction Scoliosis Scoliosis due to degenerative disease of spine in adult patient Surgical History H/O pelvic surgery History of eye surgery History of laminectomy History of rectopexy History of sinus surgery History of tonsillectomy History of total hysterectomy with bilateral salpingo-oophorectomy (BSO) S/P epidural steroid injection Family History Family/Other Colon cancer Grandmother Breast cancer Sister Arthritis Asthma COPD (chronic obstructive pulmonary disease) Father Cancer Mother Diabetes mellitus Heart disease Hypertension Sister Stroke Brother Vision loss Social History household members: none Smoking Status: Never smoker alcohol intake: former Assessment & Plan Post-op Postoperative Procedures: Procedures Operation Date: 06/11/20 07:45 Actual Procedures Side Surgeon p L3-4 right hemilaminectomy, L4-5. L5-S1 TLIF w. posterior instrumentation Antelmo Patten MD Patient will mobilize with physical therapy today. No excessive bending, lifting, or twisting. Remove Orlando catheter once mobilizing in room. Tums as needed for heartburn. Continue current pain control. Discharge likely in next 1-2 days once mobilizing safely, voiding, and adequate pain control.
[2020-06-12] MEDS: TELMISARTAN 40 MG TABLET 80 MG PO (08:47)
[2020-06-12] MEDS: hydroCHLOROthiazide 25 MG TABLET PO (08:47)
[2020-06-12] MEDS: hydrOXYzine pamoate 25 MG CAPSULE PO ×3 (08:47→23:57)
[2020-06-12] MEDS: CHOLECALCIFEROL (VITAMIN D3) 5,000 UNIT TABLET 5000 UNIT PO (08:47)
[2020-06-12] MEDS: DOCUSATE 100 MG CAPSULE PO ×2 (08:48→21:35)
[2020-06-12] MEDS: MAGNESIUM OXIDE 400 MG TABLET 500 MG PO (08:48)
[2020-06-12] MEDS: AMLODIPINE 5 MG TABLET PO (08:48)
[2020-06-12] MEDS: CALCIUM CARBONATE 500 MG TAB PO ×2 (08:49→12:12)
[2020-06-12] MEDS: INSULIN DETEMIR 100 UNIT/ML INSULN.PEN 15 UNIT SUBCUT ×2 (09:05→21:36)
--- NOTE | 2020-06-12 10:06 | PT.IIE ---
Current Diagnoses Other secondary scoliosis, lumbar region (06/11/20) Other spondylosis with radiculopathy, lumbar region (06/11/20) Spinal stenosis, lumbar region without neurogenic claudication (06/11/20) Surgery Performed Operation Date: 06/11/20 07:45 Actual Procedures p L3-4 right hemilaminectomy, L4-5. L5-S1 TLIF w. posterior instrumentation - Antelmo Patten MD Surgical History (Last Reviewed 06/12/20 @ 07:56 by Flora Shaw PA-C) H/O pelvic surgery History of eye surgery History of laminectomy History of rectopexy History of sinus surgery History of tonsillectomy History of total hysterectomy with bilateral salpingo-oophorectomy (BSO) S/P epidural steroid injection Medical History (Last Reviewed 06/12/20 @ 07:56 by Flora Shaw PA-C) Abnormal EKG Arthritis Cardiac arrhythmia Degenerative disc disease Diabetes mellitus, type 2 Disease of thyroid gland Edema Essential (primary) hypertension Facet arthropathy, lumbosacral Fluid retention Foraminal stenosis of lumbar region Herniated nucleus pulposus, L3-4 right Herniated nucleus pulposus, L4-5 History of echocardiogram (~02/15/20) Hyperlipidemia Hypertension Lumbar canal stenosis Multilevel foraminal stenosis Osteoarthritis Osteoarthritis of spine with radiculopathy, lumbar region Prolapse of bladder Pulled hamstring Pure hypercholesterolemia Rectal pain Sacral dysfunction Scoliosis Scoliosis due to degenerative disease of spine in adult patient Physical Therapy Inpatient Evaluation/Re-Eval M1 PT/OT-IP Prior Functional Status Start: 06/11/20 13:46 Freq: NEEDED Status: Active Protocol: Document 06/12/20 10:06 AW (Rec: 06/12/20 10:55 AW [id number]) Medical Review Prior Functional Status Medical History Reviewed Yes Communication Pt is able to make needs known . On evaluation, she presents with increased anxiety and mild forgetfulness. Mobility and Gait Independent with household mobility. Pt also leaves the house for short shopping trips but reports pain interferes with longer community ambulation. Activities of Daily Living and IADL's Independent. Social History Household Members none Living Arrangements House Number of Floors (Floors) One Floor Number of Stairs To Enter/Railing? 1 IBRAHIMA either through the garage or the front door. In the garage, she can hold on to a washing machine. At the front of the house, there is a post to hold on to. Home Environment Standard Height Toilet,Tub/ Shower Home Equipment Front Wheel Walker,Straight Cane,Hospice Superintendent Additional Social History Comment Pt lives alone in [facility]. Her two sons also live in but both work timers inspector and there is no one pt identifies who may be able to stay with her at discharge. She does have helpful neighbors (Linda works at home and Vasiliy occasionally helps). M2 PT-IP Current Condition Start: 06/11/20 13:46 Freq: NEEDED Status: Active Protocol: Document 06/12/20 10:06 AW (Rec: 06/12/20 10:55 AW [id number]) Physical Therapy Current Condition Current Condition Evaluation Date 06/12/20 Treatment Diagnosis L3-4 hemilami, L4-S1 TLIF; difficulty in walking Onset Date 06/11/20 Precautions Lumbar Precautions Log Roll,No Twisting,Limit Bending,Lifting Restriction of 10 lbs,Gait Belt above Incisional Area M3 PT-IP Subjective Start: 06/11/20 13:46 Freq: NEEDED Status: Active Protocol: Document 06/12/20 10:06 AW (Rec: 06/12/20 10:55 AW [id number]) Subjective Physical Therapy Visit Type Type Initial Evaluation Visit Start Time 09:36 Visit Stop Time 10:06 Total Visit Minutes 30 Number of CASE OPERATOR Visits 0 Physical Therapy Visit Comments Patient Comments Pt is willing to participate with PT Patient Goals Pt is working on a discharge plan Therapy Pain Assessment Pain When Pain Assessed During Mobility Pain Present Pain Present Pain Reported Location back Intensity 4 Scale Used Numeric (0 - 10) Pain Management Techniques Re-positioning,Timing of Activity with Medications M4 PT-IP Mobility and Gait Start: 06/11/20 13:46 Freq: NEEDED Status: Active Protocol: Document 06/12/20 10:06 AW (Rec: 06/12/20 10:55 AW [id number]) PT-Bed Mobility Assessment Rolling Type of Rolling Log Rolling,Roll to Left Level of Assist Minimal Assistance,1 Person Assistance Supine to Sit Supine to Sit Minimal Assistance,1 Person Assistance Scooting Scooting to Edge of Bed Contact Guard Assistance PT-Transfer Assessment Sit to and From Stand Sit to and from Stand Minimal Assistance,1 Person Assistance,Use of Upper Extremities Equipment Transfer Assistive Device Gait Belt,Front Wheeled Walker Orthotic/Prosthetic Devices or Brace: No Transfers Transfer Destination Chair Transfer Technique Stand Step Pivot Transfer Ability Level of Assist Minimal Assistance,1 Person Assistance,Use of Upper Extremities Comments Mobility Comments Pt was lying in the bed as PT arrived. BP 151/79 HR 76. She needed min assist and max cues for log roll to her left side and SL to sit. In sitting, pt complained of wooziness. BP was stable 150/58 HR 76. She donned her slip on shoes SBA. Symptoms cleared and pt stood from the bed min A x 1 and used FWW to take short shuffling steps to ambulate around the bed to bedside chair ~20 feet min A x 1. Pt sat on the chair with max cues to use BUE for controlled descent. Pt was positioned with call light and all needs in reach. She stated preference to sit with legs down instead of reclined. Gait Assessment Gait Gait Assistance Required: Minimum Assistance,1 Person Assist Distance (Feet) 20 Able to Maintain Weight Bearing Status Yes During Gait Assistive Devices Assistive Device Gait Belt,Front Wheeled Walker Orthotic/Prosthetic Devices or Brace: No Gait Deviations General Gait Pattern Antalgic,Decreased Stride Length,Decreased Feet Clearance,Flexed Trunk Factors Limiting Gait Function Factors Limiting Gait Function Decreased Activity Tolerance, Decreased Sensation,Decreased Strength,Difficulty Following Directions,Limited Range of Motion,Pain,Poor Balance,Poor Safety Awareness Comments Gait Comments See mobility comments for details Stair Climbing Assessment Comments Stair Climbing Comments Not assessed. PT-Balance Assessment Sitting Balance and Reactions Static Sitting Balance Ability Good Dynamic Sitting Balance Ability Good Standing Balance and Reactions Static Standing Balance Ability Fair Dynamic Standing Balance Ability Fair Device Used FW M5 PT-IP Objective Assessments Start: 06/11/20 13:46 Freq: NEEDED Status: Active Protocol: Document 06/12/20 10:06 AW (Rec: 06/12/20 10:55 AW [id number]) Orientation Orientation/Cognition Level of Alertness Alert Orientation Name,Birthday,Month,Place, Situation Safety Awareness Decreased Safety Awareness Memory Description Short Term Impaired Comments Pt repeats herself frequently and present with heightened anxiety regarding d/c plan. She is aware of her precautions, but required cues to maintain them. Gross Range of Motion Lower Extremity ROM Assessment Within Functional Limits Strength Lower Extremity Strength Assessment Bilaterally Impaired Hip 4-/5 Knee 4/5 Coordination Assessment Gross Coordination Gross Coordination WNL Sensation Assessment Sensation Gross Sensation Right LE Impaired,Left LE Impaired Light Touch Impaired Sensation Description Numbness Comments Sensation Comments Peripheral neuropathy affects light touch sensation in bilateral feet. Pt does best with shoes for ambulation. Muscle Tone Muscle Tone WNL Yes M6 PT-IP Treatment Start: 06/11/20 13:46 Freq: NEEDED Status: Active Protocol: Document 06/12/20 10:06 AW (Rec: 06/12/20 10:55 AW [id number]) Physical Therapy Treatment Education Education Provided Precautions,Weight Bearing Status,Post-Op Packet,Safety Other Treatments Other Treatment Performed Educated pt on role of PT, plan of care, post op precautions, and safe use of of FWW. M7 PT-IP Assessment and Plan Start: 06/11/20 13:46 Freq: NEEDED Status: Active Protocol: Document 06/12/20 10:06 AW (Rec: 06/12/20 10:55 AW [id number]) PT Summary Assessment and Plan Potential Rehabilitation Potential Good Status of Condition at Evaluation Evolving Summary Impairments Pain,ROM,Strength,Balance, Sensation,Cognition,Bed Mobility,Transfers,Gait, Activity Tolerance Assessment Summary Mabel is a 74 yo woman seen for PT evaluation on POD 1 following L3-4 hemilaminectomy and L4-S1 TLIF. She lives alone and is independent in all regards at baseline. On evaluation, pt presents with heightened anxiety and requires min assist with all mobility using FWW. Pt identifies no one who will be able to stay with her timers inspector at discharge but is working closely with her children to make a plan. Pt will require assist up to 24/7 available assist at discharge . Home health may be needed if pt unable to leave the house. PT will continue to assess and refine discharge recommendation. Goals Bed Mobility Goal Independent Transfer Goal Independent,Front Wheeled Walker Gait Goal Independent,Front Wheel Walker Gait Distance 150 Other Goals - up/down one step with unilateral rail OR with FWW CGA Days to Meet Goals 5 Frequency of Treatment Frequency Of Treatment Twice a Day Treatment Plan Physical Therapy Treatment Plan Bed Mobility Training,Transfer Training,Gait Training, Therapeutic Exercise,Balance Retraining,Post Op Education, Discharge Planning,Hot or Cold Pack,Neuromuscular Re-ed Precautions Lumbar Precautions Log Roll,No Twisting,Limit Bending,Lifting Restriction of 10 lbs,Gait Belt above Incisional Area Recommendations To Nursing Amount of Assist Needed 1 Person Assist Discharge Recommendations PT Discharge Recommendations Home with Assistance,Home with 24/7 Assist Available,Home Health Other Discharge Recommendations depending on progress Equipment Needed for Home Before raised toilet seat with Discharge handles, BSC Transportation Needs at Discharge Private Vehicle
[2020-06-12] MEDS: GLIMEPIRIDE 2 MG TABLET 4 MG PO (11:04)
--- NOTE | 2020-06-12 11:33 | CM.DANOTE ---
Addendum entered by Dayami Calles LPN 06/12/20 12:29: [facility] will be by w/c van. Pt is updated. Says she is relieved that the plan is in place. Brochure for the [facility] provided and white board updated re d/c dispo. PASRR: completed. P[facility] DCP team will follow to facilitate. Addendum entered by Dayami Calles LPN 06/12/20 11:58: Met now with pt, introduced self and role. Observed her with OT Kimberlyn during part of her session. Discussed her d/c options. Pt says her sons both work and often out of state. She states her neighbors are supportive but cannot be relied upon for the assist and training that she needs now. Discussed snf option specifics and with OT Kimberlyn agreeing that this would be a very good option for her. Pt quite quickly agreed, noting the plans for supportive care she had anticipated made more sense after a snf rehab stay. Medicare choice list: discussed. Decision: [facility]. (pt's mother was there about 10 years ago). Pt also reports she has had COVID vaccine 1 and 2 and feels more confident re the snf setting now. Referral given now via to [facility] admissions and will await call back. PASRR: needed. P: snf at d/c 3/18 or >: when stable for d/c. Original Note: Discharge Planning/Care Management DCP: assessment: case received EMR reviewed. Discussed in Team Rounds. PT and OT will see pt for first time today. Pt is a 74 year old female who admitted yesterday for a scheduled spinal surgery: Dr. Patten. Admission status: INPT: Payer: Medicare and [facility] Documentation reveals that pt. lives alone with no ability for care other than helpful neighbors. Will check in now with pt for continuation of assessment process. Advanced directive, confirm from FAMILY Start: 06/11/20 14:05 Freq: Q24H Status: Active Protocol: Document 06/11/20 14:05 YAD (Rec: 06/11/20 14:05 YAD [id number]) Advance Directive, confirm on record Time 14:05 Person contacted patient Copy received No CM Discharge Assessment Start: 06/12/20 11:32 Freq: Status: Active Protocol: Document 06/12/20 11:32 ITV (Rec: 06/12/20 11:33 ITV [id number]) Discharge Planning Assessment Advance Directives? Yes Advance Directives on File No History Provided By Medical Record Prior Living Arrangements House Household Members none Is patient alert and oriented? Yes Pre-Anesthesia Assessment Start: 06/05/20 11:43 Freq: Status: Complete Protocol: Document 06/05/20 11:43 VLErica (Rec: 06/05/20 12:16 [facility] [id number]) Pre-Anesthesia Assessment Preferred Name Mabel Patient Information Reviewed Via Chart Review,Phone Assessment Assessment Completed With Patient Diagnostic Results BMP/CMP,EKG,Urinalysis Comment A1c, lipids, covid Primary Care Provider Ivelisse Flowers Seen Specialist in Last 12 Months Yes Specialist Seen [address],Orthopedist,Other Comment Dr Linus OBRIEN Primary Language Tamazight Preferred Language Tamazight Public Interviewer Required No Height 163.83 cm Hearing Ability Hard of Hearing,Use of Hearing Aid Visual Impairment No Limitations Dentition Type Teeth, Natural Present Barriers to Learning Auditory Other Aids No Hx Anesthesia Reactions No Hx Family Anesthesia Reaction No Hx Malignant Hyperthermia No Hx Blood Transfusions No Hx Blood Transfusion Reaction No Anesthesia Review Requested Yes: Reviewed prior to scheduling Data Report Analyst No alcohol intake current alcohol intake frequency other Alcohol Intake Frequency Other: occasionally ie once a month Smoking Status Never smoker Substance Use Type does not use Pain Present Pain Reported Comment back pain Musculoskeletal Symptoms Abnormal Gait,Back Pain, Difficulty Walking History of Falling (Recent or History of No ) Patient is completely paralyzed or No completely immobile Ambulatory Aid None/bed rest/nurse assist Gait/Transferring Normal/bedrest/immobile Mental Status Oriented to own ability Is patient on oxygen? No Does patient have [place]/SOB No Hx Sleep Apnea No CPAP/BIPAP use not prescribed Will Bring CPAP/BIPAP DOS No Currently Taking a Beta Rodriguez No Can You Climb a Flight of Stairs Without Yes: ? SOB Hx Chest Pain No Hx SOB No Hx Syncope or Dizziness No Anti-Coagulant Therapy Yes: Aspirin 81 mg daily Has a [address] Yes: David Rios MD - [facility] Cardiac Testing Yes: Echo 02/16; Stress 2017 Hx Pacemaker/ICD No Pacemaker Rep Required? No Cardiac Clearance Received Yes Diet Type At Home Diabetic dysphagia No Gastrointestinal Symptoms Reflux Bladder Pattern Nocturia Urinary Catheter Present No Hx Urinary Self Catheterization No Diabetes Yes HgbA1C 8.9 Date 05/10/20 Comment Had two steroid injections during this time frame Patient No Lactating No Hx Drug Resistant Organism No Presence of External or Internal Medical No Devices Have you had any close contact with No someone diagnosed with COVID-19? Are you experiencing any of these No symptoms symptoms? Evaluation/Screening for possible COVID- Yes 19 infection completed? Comment Covid test 06/09/20 @ [facility] Marital Status / Lives With none Prior Living Arrangements House Number of Floors (Floors) One Floor Number of Stairs To Enter/Railing? 1 step into house Support System Family Does the Patient Have Assistance After Yes Surgery Patient Discharge Plan Description Return Home Feels Safe in Current Environment Yes Been Physically Hurt or Threatened By a No Person in Current Environment Do you have thoughts of harming yourself None or others? Are you currently considering suicide? No Do you have a plan to hurt yourself or No Plan others? Do You Have Any Spiritual Beliefs That No May Affect Your HC Choices? Do You Have Any Cultural Practices That No May Affect Your HC Choices? Who Can We Speak to About Patient's Care Friends & Family Identifying Code for Release of Patient Declined Information Health Care Proxy/Next of Kin Jose E Elkins Health Care Proxy Phone Number [place] - [phone]; Jose E Emergency Contact Name Jose E Elkins Emergency Contact Phone Number [place] - [phone]; Jose E Advance Directives? Yes Requested Patient Bring Advanced Yes Directives DOS PAC Instructions Assistance for 24 hours post- op,Diabetes instructions,Do not shave/clip surgical site, Durable medical equipment, Medications to take/avoid, Nasal antibiotic,No ETOH/ petroleum product on skin DOS, NPO,Post-op transportation,Pre -op antibiotic,Pre-surgical wash,Sensory aids,Sturdy shoes /comfortable clothes,Do not bring valuables and remove jewelry
--- NOTE | 2020-06-12 12:02 | OT.IP.EVAL ---
Current Diagnoses Other secondary scoliosis, lumbar region (06/11/20) Other spondylosis with radiculopathy, lumbar region (06/11/20) Spinal stenosis, lumbar region without neurogenic claudication (06/11/20) Surgery Performed Operation Date: 06/11/20 07:45 Actual Procedures p L3-4 right hemilaminectomy, L4-5. L5-S1 TLIF w. posterior instrumentation - Antelmo Patten MD Past Medical History (Last Reviewed 06/12/20 @ 07:56 by Flora Shaw PA-C) Abnormal EKG Arthritis Cardiac arrhythmia Degenerative disc disease Diabetes mellitus, type 2 Disease of thyroid gland Edema Essential (primary) hypertension Facet arthropathy, lumbosacral Fluid retention Foraminal stenosis of lumbar region Herniated nucleus pulposus, L3-4 right Herniated nucleus pulposus, L4-5 History of echocardiogram (~02/15/20) Hyperlipidemia Hypertension Lumbar canal stenosis Multilevel foraminal stenosis Osteoarthritis Osteoarthritis of spine with radiculopathy, lumbar region Prolapse of bladder Pulled hamstring Pure hypercholesterolemia Rectal pain Sacral dysfunction Scoliosis Scoliosis due to degenerative disease of spine in adult patient Surgical History (Last Reviewed 06/12/20 @ 07:56 by Flora Shaw PA-C) H/O pelvic surgery History of eye surgery History of laminectomy History of rectopexy History of sinus surgery History of tonsillectomy History of total hysterectomy with bilateral salpingo-oophorectomy (BSO) S/P epidural steroid injection Occupational Therapy Inpatient Evaluation/Re-Eval M1 PT/OT-IP Prior Functional Status Start: 06/12/20 12:15 Freq: NEEDED Status: Active Protocol: Document 06/12/20 12:15 [facility] (Rec: 06/12/20 12:31 [facility] [id number]) Medical Review Prior Functional Status Medical History Reviewed Yes Communication Per PT eval-Pt is able to make needs known . On evaluation, she presents with increased anxiety and mild forgetfulness. Mobility and Gait Independent with household mobility. Pt also leaves the house for short shopping trips but reports pain interferes with longer community ambulation. Activities of Daily Living and IADL's Independent. Social History Household Members none Living Arrangements House Number of Floors (Floors) One Floor Number of Stairs To Enter/Railing? 1 IBRAHIMA either through the garage or the front door. In the garage, she can hold on to a washing machine. At the front of the house, there is a post to hold on to. Home Environment Standard Height Toilet,Tub/ Shower Home Equipment Front Wheel Walker,Straight Cane,Laboratory Technologist Additional Social History Comment Pt lives alone in [facility]. Her two sons also live in but both work multimedia educational specialist and there is no one pt identifies who may be able to stay with her at discharge. She does have helpful neighbors (Linda works at home and Vasiliy occasionally helps). M2 OT-IP Current Condition Start: 06/12/20 12:15 Freq: Status: Active Protocol: Document 06/12/20 12:15 [facility] (Rec: 06/12/20 12:31 [facility] [id number]) Occupational Therapy Current Condition Current Condition Evaluation Date 06/12/20 Treatment Diagnosis S/p L4-S1 TLIF with post. inst . s/p L3-4 hemilaminectomy Diagnosis Onset Date 06/11/20 Post Operative Precautions Lumbar Precautions Log Roll,No Twisting,Limit Bending,Lifting Restriction of 10 lbs,Gait Belt above Incisional Area M3 OT- IP Subjective and Pain Start: 06/12/20 12:15 Freq: Status: Active Protocol: Document 06/12/20 12:15 [facility] (Rec: 06/12/20 12:31 [facility] [id number]) OT- Subjective Occupational Therapy Visit Type Type Initial Evaluation Visit Start Time 11:13 Visit Stop Time 12:01 Total Visit Minutes 48 Occupational Therapy Visit Comments Patient Comments Pt agree to get up for OT eval . Patient/Caregiver Goals TO go home. OT Pain Assessment Pain When Pain Assessed During Mobility Pain Present Pain Present Pain Reported Location back Intensity 5 Scale Used Numeric (0 - 10) M4 OT- IP ADL's Start: 06/12/20 12:15 Freq: Status: Active Protocol: Document 06/12/20 12:15 [facility] (Rec: 06/12/20 12:31 [facility] [id number]) OT CNJ-[place] General Evaluation Self-Feeding Ability Independent OT ADL-Grooming General Evaluation Grooming Ability Standby Assistance Areas Needing Assistance Retrieving/Set-up of Grooming Items OT ADL-Oral Care General Eval Oral Care Ability Independent Comments Oral Care Comments Pt did while seated. Explained to pt if standing to either spit into a cup or hinge at her hips to lean and spit to the sink in order to best follow her back precautions. OT ADL-Dressing General Eval Lower Body Dressing Ability Maximum Assistance Comments OT Dressing Comments Able to practice use of cupola worker and sock aid for LB dressing needs. Pt at this time has too much pain to be able to cross her legs like she did before for dressing needs prior to her back surgery. OT ADL-Toileting General Evaluation Toileting Ability Moderate Assistance Comments OT Toileting Comments Pt not able to reach from the back and would benefit from assist or toilet paper aid. OT ADL-Bathing Comments OT Bathing Comments Not performed. M5 OT- IP IADL's Start: 06/12/20 12:15 Freq: Status: Active Protocol: Document 06/12/20 12:15 [facility] (Rec: 06/12/20 12:31 [facility] [id number]) OT-Instrumental Activities of Daily Living Home Safety Awareness Awareness of Need for Assistance at Home Good Awareness Ability to Problem Solve Emergency Able to Problem Solve Situations Medication Management Medication Management Comments Pt a little groggy and at this time would be best to have assist for IADl needs. Money Management Money Management Comments Pt a little groggy and at this time would be best to have assist for IADl needs. Meal Preparation Meal Preparation Comments Pt a little groggy and at this time would be best to have assist for IADl needs. Coder Coder Comments Pt a little groggy and at this time would be best to have assist for IADl needs. M6 OT- IP Functional Cognition Start: 06/12/20 12:15 Freq: Status: Active Protocol: Document 06/12/20 12:15 [facility] (Rec: 06/12/20 12:31 [facility] [id number]) Cognitive Factors Limiting Selfcare Function Cognitive Ability Level of Alertness Alert Patient Orientation Name,Age,Birthday,Month,Date, Year,Day of Week,Place, Situation Attention Span Ability Capable of Focused Attention, Capable of Sustained Attention Ability to Follow Commands Able to Follow One Step Commands Safety Awareness Decreased Recall of Precautions Problem Solving Ability Needs Assist to Identify Solutions Cognitive Comments Cognitive Assessment Comments Pt a little groogy and not able to recall her back precautions and at time needing instructions repeated. Pt also a little [place] due to therapist having to wear a mask. Pt needing vc, simple commands to follow for safety with FWW, technique form sit to stand and how to use LB dressing equipment. OT- Vision and Hearing OT- Vision Assessment Visual Acuity Glasses All The Time M7 OT- IP Mobility and Balance Start: 06/12/20 12:15 Freq: Status: Active Protocol: Document 06/12/20 12:15 [facility] (Rec: 06/12/20 12:31 [facility] [id number]) OT-Transfer Assessment Sit to and From Stand Sit to and from Stand Minimal Assistance Transfers Transfer Ability Minimal Assistance,Moderate Assistance Technique Transfer Destination Chair,Toilet Transfer Technique Stand Step Pivot Devices Transfer Assistive Devices Gait Belt,Front Wheeled Walker Comments Mobility Comments LANCE to MODA to stand especially from lower surfaces or heavy use of grab bar assist. Once on her feet CGA with FWW. Pt's FWW is too short and suggested that she get a standard FWW. OT- Gait Assessment Comments Gait Ability Comments CGA with FWW in the room. OT- Balance Assessment Sitting Balance and Reactions Static Sitting Balance Ability Normal Dynamic Sitting Balance Ability Good Standing Balance and Reactions Static Standing Balance Ability Fair M8 OT- IP Objective Assessments Start: 06/12/20 12:15 Freq: Status: Active Protocol: Document 06/12/20 12:15 [facility] (Rec: 06/12/20 12:31 [facility] [id number]) OT-Muscle Tone Assessment Muscle Tone WNL Yes M9 OT- IP Assessment and Plan Start: 06/12/20 12:15 Freq: Status: Active Protocol: Document 06/12/20 12:15 [facility] (Rec: 06/12/20 12:31 [facility] [id number]) OT Summary Assessment and Plan Potential Rehabilitation Potential Good Analytic Complexity at Evaluation Low Summary OT Impairments Pain,Balance,Functional Cognition,Functional Mobility, Grooming,Dressing,Toileting, Bathing,Toilet Transfers, Shower Transfers,Activity Tolerance Progress Towards Goals Slow Progress due to Pain,Slow Progress due to Activity Tolerance Assessment Summary Pt low complexity and main barriers are step at home, now needing MODA for ADL and functional mobility needs and that pt lives alone. Pt would benefit from skilled rehab to continue to practice with LB dressing equipment, go over equipment needs, and to improve her safety and independence for all needs prior to going home. Pt is very motivated and pleasant. Goals Grooming Goal Independent Dressing Goal Independent Toileting Goal Independent Bathing Goal Independent Toilet Transfer Goal Independent Shower Transfer Goal Independent Patient/Caregiver Education Goal Demonstrate Post-Op Precautions Days to Meet Goals 12 Frequency of Treatment Frequency Of Treatment Once a Day Treatment Plan OT Treatment Plan ADL Training,Functional Cognition Training,Functional Mobility,Patient/Family Education,Discharge Planning Other Treatment Recommendations and Next Stand at sink with FWW for Treatment Focus grooming needs. Discharge Recommendations OT Discharge Recommendations SNF Rehab Home Equipment Needs defer to SNF Transportation Needs at Discharge Wheelchair/Cabulance
[2020-06-12] MEDS: MAG HYDROX/ALUM/SIMETH 30 ML UDC PO (12:27)
--- NOTE | 2020-06-12 12:38 | CM.DPNOTE ---
Faxed clinicals per Dayami to [facility] on 06/12/20 for referral. Fax confirmation received. Selma Mcclain CM Asst.
--- NOTE | 2020-06-12 12:54 | PC.NURSE ---
Day shift: Pt pain controlled per May at this time. Pt OOB w/ PT and tolerated well. No nausea today. Does complain of stomach/GI upset r/t hernia she has. Encouraged to not drink any carbonated beverages. VS WNL. Has been on RA 98%. Encouraged to use I.S. as directed. Sitting in chair for lunch and wants to get some sleep this afternoon. Surgery MD's may want to order a consult to hospitalist r/t Pt's poor blood glucose control pot-op. Thisa press writer did inform Dr Tejada of this but order has not been placed at this time. Plan is SNF on . CMS intact and PPP. Dressing is CDI. Will continue w/ plan of care.
--- NOTE | 2020-06-12 14:20 | PC.NURSE ---
Day shift: Ortho PA (Maday) made aware of Pt's elevated blood glucose levels at approx 1400 today. PA stated he would order sliding scale insulin.
[2020-06-12 15:40] VITALS: BP 142/61; PULSE 73; RESP 18; TEMP 37.2; O2SAT 96
--- NOTE | 2020-06-12 16:24 | PT.IPTN ---
Current Diagnoses Other secondary scoliosis, lumbar region (06/11/20) Other spondylosis with radiculopathy, lumbar region (06/11/20) Spinal stenosis, lumbar region without neurogenic claudication (06/11/20) Surgery Performed Operation Date: 06/11/20 07:45 Actual Procedures p L3-4 right hemilaminectomy, L4-5. L5-S1 TLIF w. posterior instrumentation - Antelmo Patten MD Physical Therapy Treatment Note M2 PT-IP Current Condition Start: 06/11/20 13:46 Freq: NEEDED Status: Active Protocol: Document 06/12/20 10:06 AW (Rec: 06/12/20 10:55 AW [id number]) Physical Therapy Current Condition Current Condition Evaluation Date 06/12/20 Treatment Diagnosis L3-4 hemilami, L4-S1 TLIF; difficulty in walking Onset Date 06/11/20 Precautions Lumbar Precautions Log Roll,No Twisting,Limit Bending,Lifting Restriction of 10 lbs,Gait Belt above Incisional Area M3 PT-IP Subjective Start: 06/11/20 13:46 Freq: NEEDED Status: Active Protocol: Document 06/12/20 15:54 SP (Rec: 06/12/20 17:08 SP [id number]) Subjective Physical Therapy Visit Type Type Treatment Note Visit Start Time 15:54 Visit Stop Time 16:24 Total Visit Minutes 30 Number of CLAIM PROCESSING SPECIALIST Visits 1 Physical Therapy Visit Comments Patient Comments Pt willing to work with PT. Patient Goals Pt reports wanting to go to rehab and improve strength to gain strength and endurance toward independance before returning home. Therapy Pain Assessment Pain When Pain Assessed At Rest Pain Present Pain Present Pain Reported Location back Intensity 5 Scale Used 5/10 at rest and walking, 6/10 during bed mobility Description Acute,Pressure,Spasm,Tightness ,With Movement Pain Behaviors Facial Grimacing,Guarding Pain Management Techniques Apply Cold,Re-positioning M4 PT-IP Mobility and Gait Start: 06/11/20 13:46 Freq: NEEDED Status: Active Protocol: Document 06/12/20 15:54 SP (Rec: 06/12/20 17:08 SP [id number]) PT-Bed Mobility Assessment Rolling Type of Rolling Log Rolling,Roll to Right Level of Assist Contact Guard Assistance Sit to Supine Sit to Supine Minimal Assistance,1 Person Assistance,Bedrails PT-Transfer Assessment Sit to and From Stand Sit to and from Stand Contact Guard Assistance, Minimal Assistance,1 Person Assistance,Use of Upper Extremities Equipment Transfer Assistive Device Gait Belt,Front Wheeled Walker Orthotic/Prosthetic Devices or Brace: No Transfers Transfer Destination Bed Transfer Technique pt ambulated using FWW Transfer Ability Level of Assist Contact Guard Assistance,1 Person Assistance,Use of Upper Extremities Comments Mobility Comments Pt reported wanted therapist to check with nursing when due to pain med, muscle relaxer due to 5/10 LB pain. Nursng reported is due for both and can come dispense. Pt had good recalll 3/3 precautions. Completed scoot to EO chair SBA using BUE on chair arms, Sit>stand BUE push from chair arms CG- 10% A with, stable over LEs using BUE transition to FWW for support. Pt ambulated further distance into hallway approx 100 ft total with report of low back muscles loosening up but no change in pain 5/10 in low back. When returned to room, cued for straight back/ hip hinge while reaching back for low descent to bed. sit>L sidelying Min A for BLE onto bed then cued keep knees bent and log roll onto back. Self repositioning to center in bed . Pt able to reposition bed self using controls. Bed alarmed, call light and all needs in reach. Pt requested to renotify nurse of medication assist for pain increased to 6/10 post bed mobilitiy. RADIATION THERAPY TECHNOLOGIST arrived and provided this medication request and she stated will follow up with this. Gait Assessment Gait Gait Assistance Required: Contact Guard Assist,1 Person Assist Distance (Feet) 100 Able to Maintain Weight Bearing Status Yes During Gait Assistive Devices Assistive Device Gait Belt,Front Wheeled Walker Orthotic/Prosthetic Devices or Brace: No Gait Deviations General Gait Pattern Antalgic,Decreased Stride Length,Decreased Feet Clearance,Flexed Trunk,Narrow Based Gait Factors Limiting Gait Function Factors Limiting Gait Function Decreased Activity Tolerance, Decreased Sensation,Decreased Strength,Difficulty Following Directions,Limited Range of Motion,Pain,Poor Balance,Poor Safety Awareness Comments Gait Comments Pt required education for body positioning witin FWW (never use one prior to surgery): upright posture, body close FWW back legs, UE WB on FWW as needed for balance support, increased stride more step over step into hallway longer distances, small pivot steps with repositioning FWW with maintaining no twist precautions. Stair Climbing Assessment Comments Stair Climbing Comments Not assessed. Will need to assess 1 step prior to DC home for mgt safety. PT-Balance Assessment Sitting Balance and Reactions Static Sitting Balance Ability Normal Dynamic Sitting Balance Ability Good Standing Balance and Reactions Static Standing Balance Ability Fair Dynamic Standing Balance Ability Fair Device Used FW M5 PT-IP Objective Assessments Start: 06/11/20 13:46 Freq: NEEDED Status: Active Protocol: Document 06/12/20 10:06 AW (Rec: 06/12/20 10:55 AW [id number]) Orientation Orientation/Cognition Level of Alertness Alert Orientation Name,Birthday,Month,Place, Situation Safety Awareness Decreased Safety Awareness Memory Description Short Term Impaired Comments Pt repeats herself frequently and present with heightened anxiety regarding d/c plan. She is aware of her precautions, but required cues to maintain them. Gross Range of Motion Lower Extremity ROM Assessment Within Functional Limits Strength Lower Extremity Strength Assessment Bilaterally Impaired Hip 4-/5 Knee 4/5 Coordination Assessment Gross Coordination Gross Coordination WNL Sensation Assessment Sensation Gross Sensation Right LE Impaired,Left LE Impaired Light Touch Impaired Sensation Description Numbness Comments Sensation Comments Peripheral neuropathy affects light touch sensation in bilateral feet. Pt does best with shoes for ambulation. Muscle Tone Muscle Tone WNL Yes M6 PT-IP Treatment Start: 06/11/20 13:46 Freq: NEEDED Status: Active Protocol: Document 06/12/20 15:54 SP (Rec: 06/12/20 17:08 SP [id number]) Physical Therapy Treatment Education Education Provided Precautions,Weight Bearing Status,Safety Other Treatments Other Treatment Performed Educated pt on post op precautions and safe use of of FWW. M7 PT-IP Assessment and Plan Start: 06/11/20 13:46 Freq: NEEDED Status: Active Protocol: Document 06/12/20 15:54 SP (Rec: 06/12/20 17:08 SP [id number]) PT Summary Assessment and Plan Potential Rehabilitation Potential Good Status of Condition at Evaluation Evolving Summary Impairments Pain,ROM,Strength,Balance, Sensation,Cognition,Bed Mobility,Transfers,Gait, Activity Tolerance Progress Towards Goals Progressing Toward Goals,Slow Progress due to Pain,Slow Progress due to Activity Tolerance Assessment Summary Pt required Min assist with bed mobility, CG- 10 % A during sit to stand and CG during gait using FWW. Pt requires physical assist for mobility, recommending skilled rehab upon discharge to increase strength toward functional independence using FWW at this time, she does not have consistant family or friends to support her at home . THerapy will continue to assess and refine discharge recommendation. Goals Bed Mobility Goal Independent Transfer Goal Independent,Front Wheeled Walker Gait Goal Independent,Front Wheel Walker Gait Distance 150 Other Goals - up/down one step with unilateral rail OR with FWW CGA Days to Meet Goals 5 Frequency of Treatment Frequency Of Treatment Twice a Day Treatment Plan Physical Therapy Treatment Plan Bed Mobility Training,Transfer Training,Gait Training, Therapeutic Exercise,Balance Retraining,Post Op Education, Discharge Planning,Hot or Cold Pack,Neuromuscular Re-ed Other Recommendations and Next Treatment Bed mobility, transfers, gait Focus further distance FWW or LRAD, stair mgt when able and tolerated. Precautions Lumbar Precautions Log Roll,No Twisting,Limit Bending,Lifting Restriction of 10 lbs,Gait Belt above Incisional Area Recommendations To Nursing Amount of Assist Needed 1 Person Assist Discharge Recommendations PT Discharge Recommendations Home with 24/7 Assist Available,Home Health,SNF Rehab Other Discharge Recommendations SNF vs. HHPT with 24/7 assist available Equipment Needed for Home Before raised toilet seat with Discharge handles, BSC Transportation Needs at Discharge Private Vehicle
[2020-06-12] MEDS: MAGNESIUM HYDROXIDE 30 ML UDC PO (17:12)
[2020-06-12] MEDS: INSULIN ASPART 100 UNIT/ML INSULN PEN SUBCUT ×2 (17:13→21:38)
[2020-06-12 19:50] VITALS: BP 159/69; PULSE 80; RESP 18; TEMP 37.2; O2SAT 93
[2020-06-12] MEDS: SENNOSIDES 8.6 MG TABLET 17.2 MG PO (21:35)
[2020-06-12] MEDS: PRAZOSIN 1 MG CAPSULE PO (21:47)
[2020-06-12] MEDS: ACETAMINOPHEN 325 MG TABLET 650 MG PO (23:57)
[2020-06-13] VITALS (7 sets, daily range): BP systolic 122–164; BP diastolic 52–67; PULSE 65–78; RESP 15–18; TEMP 36.4–37.6; O2SAT 93–97
[2020-06-13] MEDS: OXYCODONE IR 10 MG TABLET PO ×2 (03:04→06:29)
[2020-06-13] MEDS: LEVOTHYROXINE 50 MCG TABLET PO (05:37)
--- NOTE | 2020-06-13 07:50 | PM.PNPO.1 ---
Subjective Subjective Date Patient Seen: 06/13/20 Time Patient Seen: 07:50 Interval history: POD #2 s/p L4-S1 TLIF with Dr. Patten. Patient reports feeling out of it from Oxycodone 10 mg. She also reports taking Inuslin 18 units at home not 15 units. Her pain is well controlled. She has been up with PT and mobilized in the galvan. Her irizarry was removed this AM and she has not voided yet. Exam Vital Signs (past 8 hours): - 06/13/20 00:00 06/13/20 05:00 Temperature 99.1 F 98.2 F Pulse Rate 78 73 Respiratory Rate 16 16 Blood Pressure 157/63 H 127/58 L Pulse Oximetry 93 93 Oxygen Delivery Method Room Air Oxygen Flow Rate 0 Narrative Exam Narrative: Patient sitting up in bed in NAD. Calves are soft, compressible, and nontender bilaterally. SCDs on and functioning. She is able to actively dorsiflex and plantarflex. SILT throughout BLEs. Dressing on back is CDI. Objective Labs Result Diagrams: 06/12/20 05:05 [facility] Medical History Abnormal EKG Arthritis Cardiac arrhythmia Degenerative disc disease Diabetes mellitus, type 2 Disease of thyroid gland Edema Essential (primary) hypertension Facet arthropathy, lumbosacral Fluid retention Foraminal stenosis of lumbar region Herniated nucleus pulposus, L3-4 right Herniated nucleus pulposus, L4-5 History of echocardiogram (~02/15/20) Hyperlipidemia Hypertension Lumbar canal stenosis Multilevel foraminal stenosis Osteoarthritis Osteoarthritis of spine with radiculopathy, lumbar region Prolapse of bladder Pulled hamstring Pure hypercholesterolemia Rectal pain Sacral dysfunction Scoliosis Scoliosis due to degenerative disease of spine in adult patient Surgical History H/O pelvic surgery History of eye surgery History of laminectomy History of rectopexy History of sinus surgery History of tonsillectomy History of total hysterectomy with bilateral salpingo-oophorectomy (BSO) S/P epidural steroid injection Family History Family/Other Colon cancer Grandmother Breast cancer Sister Arthritis Asthma COPD (chronic obstructive pulmonary disease) Father Cancer Mother Diabetes mellitus Heart disease Hypertension Sister Stroke Brother Vision loss Social History household members: none Smoking Status: Never smoker alcohol intake: former Assessment & Plan Post-op Postoperative Procedures: Procedures Operation Date: 06/11/20 07:45 Actual Procedures Side Surgeon p L3-4 right hemilaminectomy, L4-5. L5-S1 TLIF w. posterior instrumentation Antelmo Patten MD Patient will mobilize with PT today. No excessive bending, lifting, or twisting. Irizarry removed this AM will monitor that she voids. Oxycodone 5 mg added. Insulin changed to 18 Units. Patient will need SN[facility] for continued recovery after surgery. Discharge likely tomorrow.
[2020-06-13] MEDS: ONDANSETRON 4 MG/2 ML INJ IV (08:13)
--- NOTE | 2020-06-13 10:25 | OT.IPNOTE ---
Pt too tired at this time to do OT treatment, to check on pt later.
--- NOTE | 2020-06-13 12:08 | PT.IPTN ---
Current Diagnoses Other secondary scoliosis, lumbar region (06/11/20) Other spondylosis with radiculopathy, lumbar region (06/11/20) Spinal stenosis, lumbar region without neurogenic claudication (06/11/20) Surgery Performed Operation Date: 06/11/20 07:45 Actual Procedures p L3-4 right hemilaminectomy, L4-5. L5-S1 TLIF w. posterior instrumentation - Antelmo Patten MD Physical Therapy Treatment Note M2 PT-IP Current Condition Start: 06/11/20 13:46 Freq: NEEDED Status: Active Protocol: Document 06/12/20 10:06 AW (Rec: 06/12/20 10:55 AW [id number]) Physical Therapy Current Condition Current Condition Evaluation Date 06/12/20 Treatment Diagnosis L3-4 hemilami, L4-S1 TLIF; difficulty in walking Onset Date 06/11/20 Precautions Lumbar Precautions Log Roll,No Twisting,Limit Bending,Lifting Restriction of 10 lbs,Gait Belt above Incisional Area M3 PT-IP Subjective Start: 06/11/20 13:46 Freq: NEEDED Status: Active Protocol: Document 06/13/20 11:37 SP (Rec: 06/13/20 13:04 SP [id number]) Subjective Physical Therapy Visit Type Type Treatment Note Visit Start Time 11:37 Visit Stop Time 12:08 Total Visit Minutes 31 Number of DOOR CAPTAIN Visits 2 Physical Therapy Visit Comments Patient Comments Pt willing to work with therapy on 2nd attempt. Pt reported I am really sleepy and feel unsafe to work with therapy but return later am after gets some sleep. Patient Goals Pt reports wanting to go to rehab and improve strength to gain strength and endurance toward independance before returning home. Therapy Pain Assessment Pain When Pain Assessed During Mobility Pain Present Pain Present Pain Reported Location back Intensity 5 Scale Used Numeric (0 - 10) Description With Movement Pain Behaviors Facial Grimacing,Guarding Pain Management Techniques Re-positioning,Timing of Activity with Medications M4 PT-IP Mobility and Gait Start: 06/11/20 13:46 Freq: NEEDED Status: Active Protocol: Document 06/13/20 11:37 SP (Rec: 06/13/20 13:04 SP [id number]) PT-Bed Mobility Assessment Rolling Type of Rolling Log Rolling,Roll to Right Level of Assist Standby Assistance Supine to Sit Supine to Sit Minimal Assistance,1 Person Assistance Scooting Scooting to Edge of Bed Contact Guard Assistance PT-Transfer Assessment Sit to and From Stand Sit to and from Stand Contact Guard Assistance, Minimal Assistance,1 Person Assistance,Use of Upper Extremities Equipment Transfer Assistive Device Gait Belt,Front Wheeled Walker Orthotic/Prosthetic Devices or Brace: No Transfers Transfer Destination Chair,Toilet Transfer Technique pt ambulated using FWW Transfer Ability Level of Assist Contact Guard Assistance,1 Person Assistance,Use of Upper Extremities Comments Mobility Comments LR R using bed rail CGA with cuing for LE knee bend and move with upper body, Min A to pull from therapist hand to complete trunk righting to sit , CGA during scoot to EOB. Sit >stand CGA using fWW with cuing for pushing from the bed , ambulated usign fWW to bathroom, step pivot with cuing for backing up completely to toilet, pt required occasional assist for gown and brief mgt, use of grab bar with cuing and fWW to slow descent to sit on toilet . Self hygiene mgt sitting, CGA sit>stand. Pt ambulated to sink CGA using FWW, stood at sink with no support required washing hands. Pt ambulated using FWW into hallway approx 120 ft total then slow descent into chair when returned CGA then Min A for scooting back fully in chair with pillows and blanket for upright posture in chair. Pt call light and all needs in reach with tray in front, lunch tray staff entered room when was leaving. Gait Assessment Gait Gait Assistance Required: Contact Guard Assist,1 Person Assist Distance (Feet) 120 Able to Maintain Weight Bearing Status Yes During Gait Assistive Devices Assistive Device Gait Belt,Front Wheeled Walker Orthotic/Prosthetic Devices or Brace: No Gait Deviations General Gait Pattern Antalgic,Decreased Stride Length,Decreased Feet Clearance,Flexed Trunk,Narrow Based Gait Factors Limiting Gait Function Factors Limiting Gait Function Decreased Activity Tolerance, Decreased Strength,Difficulty Following Directions,Limited Range of Motion,Pain,Poor Balance,Poor Safety Awareness Comments Gait Comments Cued pt increase foot clearance and step length, educated UE on FWW as needed to decrease tightness in shoulders and neck during gait to assist pain response. Improved decrease cuing for posture and lessened BUE WB on FWW as distance progressed. PT required 2 stop stand rest during gait distance for tiring recovery. Stair Climbing Assessment Comments Stair Climbing Comments Not assessed, pt not feel safe or steady to assess this tx. Will need to assess 1 step prior to DC home for mgt safety. PT-Balance Assessment Sitting Balance and Reactions Static Sitting Balance Ability Normal Dynamic Sitting Balance Ability Good Standing Balance and Reactions Static Standing Balance Ability Fair Dynamic Standing Balance Ability Fair Device Used FW M5 PT-IP Objective Assessments Start: 06/11/20 13:46 Freq: NEEDED Status: Active Protocol: Document 06/12/20 10:06 AW (Rec: 06/12/20 10:55 AW [id number]) Orientation Orientation/Cognition Level of Alertness Alert Orientation Name,Birthday,Month,Place, Situation Safety Awareness Decreased Safety Awareness Memory Description Short Term Impaired Comments Pt repeats herself frequently and present with heightened anxiety regarding d/c plan. She is aware of her precautions, but required cues to maintain them. Gross Range of Motion Lower Extremity ROM Assessment Within Functional Limits Strength Lower Extremity Strength Assessment Bilaterally Impaired Hip 4-/5 Knee 4/5 Coordination Assessment Gross Coordination Gross Coordination WNL Sensation Assessment Sensation Gross Sensation Right LE Impaired,Left LE Impaired Light Touch Impaired Sensation Description Numbness Comments Sensation Comments Peripheral neuropathy affects light touch sensation in bilateral feet. Pt does best with shoes for ambulation. Muscle Tone Muscle Tone WNL Yes M6 PT-IP Treatment Start: 06/11/20 13:46 Freq: NEEDED Status: Active Protocol: Document 06/13/20 11:37 SP (Rec: 06/13/20 13:04 SP [id number]) Physical Therapy Treatment Education Education Provided Precautions,Weight Bearing Status,Safety Other Treatments Other Treatment Performed Reviewed and good recall 3/3 spinal precautions and safe use of of FWW with improved demonstration this tx. M7 PT-IP Assessment and Plan Start: 06/11/20 13:46 Freq: NEEDED Status: Active Protocol: Document 06/13/20 11:37 SP (Rec: 06/13/20 13:04 SP [id number]) PT Summary Assessment and Plan Potential Rehabilitation Potential Good Status of Condition at Evaluation Evolving Summary Impairments Pain,ROM,Strength,Balance, Sensation,Cognition,Bed Mobility,Transfers,Gait, Activity Tolerance Progress Towards Goals Progressing Toward Goals,Slow Progress due to Pain,Slow Progress due to Activity Tolerance Assessment Summary Pt required Min assist with bed mobility, CGA during sit to stand and CG during gait using FWW. Pt continues to require physical assist for mobility, recommending skilled rehab upon discharge to increase strength toward functional independence using FWW at this time, she does not have consistant family or friends to support her at home . Goals Bed Mobility Goal Independent Transfer Goal Independent,Front Wheeled Walker Gait Goal Independent,Front Wheel Walker Gait Distance 150 Other Goals - up/down one step with unilateral rail OR with FWW CGA Days to Meet Goals 5 Frequency of Treatment Frequency Of Treatment Twice a Day Treatment Plan Physical Therapy Treatment Plan Bed Mobility Training,Transfer Training,Gait Training, Therapeutic Exercise,Balance Retraining,Post Op Education, Discharge Planning,Hot or Cold Pack,Neuromuscular Re-ed Other Recommendations and Next Treatment Bed mobility, transfers, gait Focus further distance FWW or LRAD, stair mgt when able and tolerated. Precautions Lumbar Precautions Log Roll,No Twisting,Limit Bending,Lifting Restriction of 10 lbs,Gait Belt above Incisional Area Recommendations To Nursing Amount of Assist Needed 1 Person Assist Discharge Recommendations PT Discharge Recommendations SNF Rehab Other Discharge Recommendations SNF Rehab Equipment Needed for Home Before raised toilet seat with Discharge handles, BSC Transportation Needs at Discharge Private Vehicle
[2020-06-13] MEDS: TELMISARTAN 40 MG TABLET 80 MG PO (12:57)
[2020-06-13] MEDS: hydroCHLOROthiazide 25 MG TABLET PO (12:57)
[2020-06-13] MEDS: MAGNESIUM OXIDE 400 MG TABLET 500 MG PO (12:57)
[2020-06-13] MEDS: SODIUM CHLORIDE 0.9% FLUSH 10 ML IV ×2 (12:59→20:45)
[2020-06-13] MEDS: DOCUSATE 100 MG CAPSULE PO ×2 (12:59→20:43)
[2020-06-13] MEDS: CHOLECALCIFEROL (VITAMIN D3) 5,000 UNIT TABLET 5000 UNIT PO (12:59)
[2020-06-13] MEDS: INSULIN DETEMIR 100 UNIT/ML INSULN.PEN 18 UNIT SUBCUT (13:04)
[2020-06-13] MEDS: INSULIN ASPART 100 UNIT/ML INSULN PEN SUBCUT ×2 (13:05→17:03)
[2020-06-13] MEDS: GLIMEPIRIDE 2 MG TABLET 4 MG PO (13:11)
[2020-06-13] MEDS: AMLODIPINE 5 MG TABLET PO (13:11)
--- NOTE | 2020-06-13 14:12 | PT.IPTN ---
Current Diagnoses Other secondary scoliosis, lumbar region (06/11/20) Other spondylosis with radiculopathy, lumbar region (06/11/20) Spinal stenosis, lumbar region without neurogenic claudication (06/11/20) Surgery Performed Operation Date: 06/11/20 07:45 Actual Procedures p L3-4 right hemilaminectomy, L4-5. L5-S1 TLIF w. posterior instrumentation - Antelmo Patten MD Physical Therapy Treatment Note M2 PT-IP Current Condition Start: 06/11/20 13:46 Freq: NEEDED Status: Active Protocol: Document 06/12/20 10:06 AW (Rec: 06/12/20 10:55 AW [id number]) Physical Therapy Current Condition Current Condition Evaluation Date 06/12/20 Treatment Diagnosis L3-4 hemilami, L4-S1 TLIF; difficulty in walking Onset Date 06/11/20 Precautions Lumbar Precautions Log Roll,No Twisting,Limit Bending,Lifting Restriction of 10 lbs,Gait Belt above Incisional Area M3 PT-IP Subjective Start: 06/11/20 13:46 Freq: NEEDED Status: Active Protocol: Document 06/13/20 13:48 SP (Rec: 06/13/20 14:37 SP [id number]) Subjective Physical Therapy Visit Type Type Treatment Note Visit Start Time 13:48 Visit Stop Time 14:12 Total Visit Minutes 24 Number of FRUIT WORKER Visits 3 Physical Therapy Visit Comments Patient Comments Pt willing to work with therapy, I just finished with the other therapy and want to try and go for another walk to get stronger. Patient Goals Pt reports is going to rehab to get stronger to be able to be able to take care of herself before returning home. Therapy Pain Assessment Pain When Pain Assessed During Mobility Pain Present Pain Present Pain Reported Location back Intensity 5 Scale Used Numeric (0 - 10) Description With Movement Pain Behaviors Facial Grimacing,Guarding Pain Management Techniques Apply Cold,Re-positioning, Timing of Activity with Medications M4 PT-IP Mobility and Gait Start: 06/11/20 13:46 Freq: NEEDED Status: Active Protocol: Document 06/13/20 13:48 SP (Rec: 06/13/20 14:37 SP [id number]) PT-Transfer Assessment Sit to and From Stand Sit to and from Stand Contact Guard Assistance,Use of Upper Extremities Equipment Transfer Assistive Device Gait Belt,Front Wheeled Walker Orthotic/Prosthetic Devices or Brace: No Transfers Transfer Destination Chair Transfer Technique pt ambulated using FWW Transfer Ability Level of Assist Contact Guard Assistance,Use of Upper Extremities Comments Mobility Comments Completed scoot to edge of chair, sit<> stand from chair using BUE on chair arm or 1 on chair and other on FWW with good self verbalizing sequencing. Pt ambulated further distance approx 175ft using FWW CGA> SBA, when returned to room completed standing LE exercises then brief seated rest and reps of sit to sit <> stands with occasional verbal/tactile cuing for reaching back for chair prior to sitting. Pt scooted back self with assist pillow placement upright posture and applied CP to low back for assist with pain control. Assisted request to be reclined in chair and LE elevated support. Pt had call light and all needs in reach. Gait Assessment Gait Gait Assistance Required: Standby Assistance,Contact Guard Assist,1 Person Assist Distance (Feet) 175 Able to Maintain Weight Bearing Status Yes During Gait Assistive Devices Assistive Device Gait Belt,Front Wheeled Walker Orthotic/Prosthetic Devices or Brace: No Gait Deviations General Gait Pattern Antalgic,Decreased Stride Length,Decreased Feet Clearance,Flexed Trunk,Narrow Based Gait Factors Limiting Gait Function Factors Limiting Gait Function Decreased Activity Tolerance, Decreased Strength,Limited Range of Motion,Pain,Poor Safety Awareness Comments Gait Comments Initially CGA provided around end of bed then decreased to SBA using FWW, occasional cuing for relaxed arms/ shoulders/ tall head positioning and increase foot clearance and stride length, improved as distance progressed. Pt required 1 stopped stand rest during distance for tiring recovery. Stair Climbing Assessment Comments Stair Climbing Comments Not assessed, pt not feel strong enough or steady to assess this tx. Will need to assess 1 step prior to DC home for mgt safety. PT-Balance Assessment Sitting Balance and Reactions Static Sitting Balance Ability Normal Dynamic Sitting Balance Ability Good Standing Balance and Reactions Static Standing Balance Ability Good Dynamic Standing Balance Ability Fair Device Used FW M5 PT-IP Objective Assessments Start: 06/11/20 13:46 Freq: NEEDED Status: Active Protocol: Document 06/12/20 10:06 AW (Rec: 06/12/20 10:55 AW [id number]) Orientation Orientation/Cognition Level of Alertness Alert Orientation Name,Birthday,Month,Place, Situation Safety Awareness Decreased Safety Awareness Memory Description Short Term Impaired Comments Pt repeats herself frequently and present with heightened anxiety regarding d/c plan. She is aware of her precautions, but required cues to maintain them. Gross Range of Motion Lower Extremity ROM Assessment Within Functional Limits Strength Lower Extremity Strength Assessment Bilaterally Impaired Hip 4-/5 Knee 4/5 Coordination Assessment Gross Coordination Gross Coordination WNL Sensation Assessment Sensation Gross Sensation Right LE Impaired,Left LE Impaired Light Touch Impaired Sensation Description Numbness Comments Sensation Comments Peripheral neuropathy affects light touch sensation in bilateral feet. Pt does best with shoes for ambulation. Muscle Tone Muscle Tone WNL Yes M6 PT-IP Treatment Start: 06/11/20 13:46 Freq: NEEDED Status: Active Protocol: Document 06/13/20 13:48 SP (Rec: 06/13/20 14:37 SP [id number]) Physical Therapy Treatment Education Education Provided Precautions,Safety Other Treatments Other Treatment Performed Pt completed standing LE ex when returned from walk before sitting: marching and heel raises x10 each, 1 min rest then 4 sit to stands with education on 1 vs 2 UE support needs in the moment, good slow pacing muscular control. That feels like a good leg work out. M7 PT-IP Assessment and Plan Start: 06/11/20 13:46 Freq: NEEDED Status: Active Protocol: Document 06/13/20 13:48 SP (Rec: 06/13/20 14:37 SP [id number]) PT Summary Assessment and Plan Potential Rehabilitation Potential Good Status of Condition at Evaluation Evolving Summary Impairments Pain,ROM,Strength,Balance, Sensation,Cognition,Bed Mobility,Transfers,Gait, Activity Tolerance Progress Towards Goals Progressing Toward Goals,Slow Progress due to Pain,Slow Progress due to Activity Tolerance Assessment Summary Pt required CGA> SBA during sit to stand and during gait using FWW, requires rest breaks for tiring recovery due to decreased strength and endurance. Pt did not require physical assist during sit to stand or gait mobility using FWW but did not assess assist during bed mobility this tx, continue to recommend skilled rehab upon discharge to increase strength toward functional independence using FWW for support, she does not have consistant family or friends to support her at home . Goals Bed Mobility Goal Independent Transfer Goal Independent,Front Wheeled Walker Gait Goal Independent,Front Wheel Walker Gait Distance 150 Other Goals - up/down one step with unilateral rail OR with FWW CGA Days to Meet Goals 5 Frequency of Treatment Frequency Of Treatment Twice a Day Treatment Plan Physical Therapy Treatment Plan Bed Mobility Training,Transfer Training,Gait Training, Therapeutic Exercise,Balance Retraining,Post Op Education, Discharge Planning,Hot or Cold Pack,Neuromuscular Re-ed Other Recommendations and Next Treatment Bed mobility, transfers, gait Focus further distance FWW or LRAD, stair mgt when able and tolerated. Precautions Lumbar Precautions Log Roll,No Twisting,Limit Bending,Lifting Restriction of 10 lbs,Gait Belt above Incisional Area Recommendations To Nursing Amount of Assist Needed 1 Person Assist Discharge Recommendations PT Discharge Recommendations SNF Rehab Other Discharge Recommendations SNF Rehab Equipment Needed for Home Before raised toilet seat with Discharge handles, BSC Transportation Needs at Discharge Private Vehicle
--- NOTE | 2020-06-13 14:13 | OT.IP.TRT ---
Current Diagnoses Other secondary scoliosis, lumbar region (06/11/20) Other spondylosis with radiculopathy, lumbar region (06/11/20) Spinal stenosis, lumbar region without neurogenic claudication (06/11/20) Surgery Performed Operation Date: 06/11/20 07:45 Actual Procedures p L3-4 right hemilaminectomy, L4-5. L5-S1 TLIF w. posterior instrumentation - Antelmo Patten MD Occupational Therapy Treatment Note M2 OT-IP Current Condition Start: 06/12/20 12:15 Freq: Status: Active Protocol: Document 06/12/20 12:15 [facility] (Rec: 06/12/20 12:31 [facility] [id number]) Occupational Therapy Current Condition Current Condition Evaluation Date 06/12/20 Treatment Diagnosis S/p L4-S1 TLIF with post. inst . s/p L3-4 hemilaminectomy Diagnosis Onset Date 06/11/20 Post Operative Precautions Lumbar Precautions Log Roll,No Twisting,Limit Bending,Lifting Restriction of 10 lbs,Gait Belt above Incisional Area M3 OT- IP Subjective and Pain Start: 06/12/20 12:15 Freq: Status: Active Protocol: Document 06/13/20 14:03 [facility] (Rec: 06/13/20 14:13 [facility] [id number]) OT- Subjective Occupational Therapy Visit Type Type Treatment Note Visit Start Time 12:33 Visit Stop Time 12:48 Total Visit Minutes 15 Occupational Therapy Visit Comments Patient Comments Pt agreed to get up to do grooming at the sink with FWW. Patient/Caregiver Goals To go to rehab. OT Pain Assessment Pain When Pain Assessed During Mobility Pain Present Pain Present Pain Reported M4 OT- IP ADL's Start: 06/12/20 12:15 Freq: Status: Active Protocol: Document 06/13/20 14:03 [facility] (Rec: 06/13/20 14:13 [facility] [id number]) OT ADL-Grooming General Evaluation Grooming Ability Standby Assistance Areas Needing Assistance Retrieving/Set-up of Grooming Items Comments OT Grooming Comments Pt able to stand with FWW at the sink. OT ADL-Oral Care General Eval Oral Care Ability Standby Assistance Comments Oral Care Comments VC for pt to either spit into the cup versus hinge at her hips to spit into the sink Pt able to show good safety of back precautions. M6 OT- IP Functional Cognition Start: 03/16/21 12:15 Freq: Status: Active Protocol: Document 06/13/20 14:03 [facility] (Rec: 06/13/20 14:13 [facility] [id number]) Cognitive Factors Limiting Selfcare Function Cognitive Comments Cognitive Assessment Comments VC for back precautions to during mobility needs, to move the FWW and feet at the same time to prevent from twisting. M7 OT- IP Mobility and Balance Start: 06/12/20 12:15 Freq: Status: Active Protocol: Document 06/13/20 14:03 [facility] (Rec: 06/13/20 14:13 [facility] [id number]) OT-Transfer Assessment Sit to and From Stand Sit to and from Stand Contact Guard Assistance Transfers Transfer Ability Contact Guard Assistance Technique Transfer Destination Chair Transfer Technique Stand Step Pivot Devices Transfer Assistive Devices Gait Belt,Front Wheeled Walker Comments Mobility Comments VC to scoot forwards and hinge at her hips and push up from the armrest of the recliner to stand. CGA to assist for balance. OT- Balance Assessment Sitting Balance and Reactions Static Sitting Balance Ability Normal Dynamic Sitting Balance Ability Good Standing Balance and Reactions Static Standing Balance Ability Fair M8 OT- IP Objective Assessments Start: 06/12/20 12:15 Freq: Status: Active Protocol: Document 06/12/20 12:15 [facility] (Rec: 06/12/20 12:31 [facility] [id number]) OT-Muscle Tone Assessment Muscle Tone WNL Yes M9 OT- IP Assessment and Plan Start: 06/12/20 12:15 Freq: Status: Active Protocol: Document 06/13/20 14:03 [facility] (Rec: 06/13/20 14:13 [facility] [id number]) OT Summary Assessment and Plan Potential Rehabilitation Potential Good Analytic Complexity at Evaluation Low Summary OT Impairments Pain,Balance,Functional Cognition,Functional Mobility, Grooming,Dressing,Toileting, Bathing,Toilet Transfers, Shower Transfers,Activity Tolerance Progress Towards Goals Slow Progress due to Pain,Slow Progress due to Activity Tolerance Assessment Summary Pt noted improvement with mobility needs today. Pt will still benefit from continued therapies at skilled rehab to incorporate back precautions during all ADl and IADl needs. To do showering tomorrow for OT treatment. Goals Grooming Goal Independent Dressing Goal Independent Toileting Goal Independent Bathing Goal Independent Toilet Transfer Goal Independent Shower Transfer Goal Independent Patient/Caregiver Education Goal Demonstrate Post-Op Precautions Days to Meet Goals 11 Frequency of Treatment Frequency Of Treatment Once a Day Treatment Plan OT Treatment Plan ADL Training,Functional Cognition Training,Functional Mobility,Patient/Family Education,Discharge Planning Other Treatment Recommendations and Next shower Treatment Focus Discharge Recommendations OT Discharge Recommendations SNF Rehab Home Equipment Needs defer to SNF Transportation Needs at Discharge Wheelchair/Cabulance
--- NOTE | 2020-06-13 14:14 | PT.IPTN ---
Current Diagnoses Other secondary scoliosis, lumbar region (06/11/20) Other spondylosis with radiculopathy, lumbar region (06/11/20) Spinal stenosis, lumbar region without neurogenic claudication (06/11/20) Surgery Performed Operation Date: 06/11/20 07:45 Actual Procedures p L3-4 right hemilaminectomy, L4-5. L5-S1 TLIF w. posterior instrumentation - Antelmo Patten MD Physical Therapy Treatment Note M2 PT-IP Current Condition Start: 06/11/20 13:46 Freq: NEEDED Status: Active Protocol: Document 06/12/20 10:06 AW (Rec: 06/12/20 10:55 AW [id number]) Physical Therapy Current Condition Current Condition Evaluation Date 06/12/20 Treatment Diagnosis L3-4 hemilami, L4-S1 TLIF; difficulty in walking Onset Date 06/11/20 Precautions Lumbar Precautions Log Roll,No Twisting,Limit Bending,Lifting Restriction of 10 lbs,Gait Belt above Incisional Area M3 PT-IP Subjective Start: 06/11/20 13:46 Freq: NEEDED Status: Active Protocol: Document 06/13/20 13:48 SP (Rec: 06/13/20 14:37 SP [id number]) Subjective Physical Therapy Visit Type Type Treatment Note Visit Start Time 13:48 Visit Stop Time 14:12 Total Visit Minutes 24 Number of STEEL HANDLER Visits 3 Physical Therapy Visit Comments Patient Comments Pt willing to work with therapy, I just finished with the other therapy and want to try and go for another walk to get stronger. Patient Goals Pt reports is going to rehab to get stronger to be able to be able to take care of herself before returning home. Therapy Pain Assessment Pain When Pain Assessed During Mobility Pain Present Pain Present Pain Reported Location back Intensity 5 Scale Used Numeric (0 - 10) Description With Movement Pain Behaviors Facial Grimacing,Guarding Pain Management Techniques Apply Cold,Re-positioning, Timing of Activity with Medications M4 PT-IP Mobility and Gait Start: 06/11/20 13:46 Freq: NEEDED Status: Active Protocol: Document 06/13/20 13:48 SP (Rec: 06/13/20 14:37 SP [id number]) PT-Transfer Assessment Sit to and From Stand Sit to and from Stand Contact Guard Assistance,Use of Upper Extremities Equipment Transfer Assistive Device Gait Belt,Front Wheeled Walker Orthotic/Prosthetic Devices or Brace: No Transfers Transfer Destination Chair Transfer Technique pt ambulated using FWW Transfer Ability Level of Assist Contact Guard Assistance,Use of Upper Extremities Comments Mobility Comments Completed scoot to edge of chair, sit<> stand from chair using BUE on chair arm or 1 on chair and other on FWW with good self verbalizing sequencing. Pt ambulated further distance approx 175ft using FWW CGA> SBA, when returned to room completed standing LE exercises then brief seated rest and reps of sit to sit <> stands with occasional verbal/tactile cuing for reaching back for chair prior to sitting. Pt scooted back self with assist pillow placement upright posture and applied CP to low back for assist with pain control. Assisted request to be reclined in chair and LE elevated support. Pt had call light and all needs in reach. Gait Assessment Gait Gait Assistance Required: Standby Assistance,Contact Guard Assist,1 Person Assist Distance (Feet) 175 Able to Maintain Weight Bearing Status Yes During Gait Assistive Devices Assistive Device Gait Belt,Front Wheeled Walker Orthotic/Prosthetic Devices or Brace: No Gait Deviations General Gait Pattern Antalgic,Decreased Stride Length,Decreased Feet Clearance,Flexed Trunk,Narrow Based Gait Factors Limiting Gait Function Factors Limiting Gait Function Decreased Activity Tolerance, Decreased Strength,Limited Range of Motion,Pain,Poor Safety Awareness Comments Gait Comments Initially CGA provided around end of bed then decreased to SBA using FWW, occasional cuing for relaxed arms/ shoulders/ tall head positioning and increase foot clearance and stride length, improved as distance progressed. Pt required 1 stopped stand rest during distance for tiring recovery. Stair Climbing Assessment Comments Stair Climbing Comments Not assessed, pt not feel strong enough or steady to assess this tx. Will need to assess 1 step prior to DC home for mgt safety. PT-Balance Assessment Sitting Balance and Reactions Static Sitting Balance Ability Normal Dynamic Sitting Balance Ability Good Standing Balance and Reactions Static Standing Balance Ability Good Dynamic Standing Balance Ability Fair Device Used FW M5 PT-IP Objective Assessments Start: 06/11/20 13:46 Freq: NEEDED Status: Active Protocol: Document 06/12/20 10:06 AW (Rec: 06/12/20 10:55 AW [id number]) Orientation Orientation/Cognition Level of Alertness Alert Orientation Name,Birthday,Month,Place, Situation Safety Awareness Decreased Safety Awareness Memory Description Short Term Impaired Comments Pt repeats herself frequently and present with heightened anxiety regarding d/c plan. She is aware of her precautions, but required cues to maintain them. Gross Range of Motion Lower Extremity ROM Assessment Within Functional Limits Strength Lower Extremity Strength Assessment Bilaterally Impaired Hip 4-/5 Knee 4/5 Coordination Assessment Gross Coordination Gross Coordination WNL Sensation Assessment Sensation Gross Sensation Right LE Impaired,Left LE Impaired Light Touch Impaired Sensation Description Numbness Comments Sensation Comments Peripheral neuropathy affects light touch sensation in bilateral feet. Pt does best with shoes for ambulation. Muscle Tone Muscle Tone WNL Yes M6 PT-IP Treatment Start: 06/11/20 13:46 Freq: NEEDED Status: Active Protocol: Document 06/13/20 13:48 SP (Rec: 06/13/20 14:37 SP [id number]) Physical Therapy Treatment Education Education Provided Precautions,Safety Other Treatments Other Treatment Performed Pt completed standing LE ex when returned from walk before sitting: marching and heel raises x10 each, 1 min rest then 4 sit to stands with education on 1 vs 2 UE support needs in the moment, good slow pacing muscular control. That feels like a good leg work out. M7 PT-IP Assessment and Plan Start: 06/11/20 13:46 Freq: NEEDED Status: Active Protocol: Document 06/13/20 13:48 SP (Rec: 06/13/20 14:37 SP [id number]) PT Summary Assessment and Plan Potential Rehabilitation Potential Good Status of Condition at Evaluation Evolving Summary Impairments Pain,ROM,Strength,Balance, Sensation,Cognition,Bed Mobility,Transfers,Gait, Activity Tolerance Progress Towards Goals Progressing Toward Goals,Slow Progress due to Pain,Slow Progress due to Activity Tolerance Assessment Summary Pt required CGA> SBA during sit to stand and during gait using FWW, requires rest breaks for tiring recovery due to decreased strength and endurance. Pt did not require physical assist during sit to stand or gait mobility using FWW but did not assess assist during bed mobility this tx, continue to recommend skilled rehab upon discharge to increase strength toward functional independence using FWW for support, she does not have consistant family or friends to support her at home . Goals Bed Mobility Goal Independent Transfer Goal Independent,Front Wheeled Walker Gait Goal Independent,Front Wheel Walker Gait Distance 150 Other Goals - up/down one step with unilateral rail OR with FWW CGA Days to Meet Goals 5 Frequency of Treatment Frequency Of Treatment Twice a Day Treatment Plan Physical Therapy Treatment Plan Bed Mobility Training,Transfer Training,Gait Training, Therapeutic Exercise,Balance Retraining,Post Op Education, Discharge Planning,Hot or Cold Pack,Neuromuscular Re-ed Other Recommendations and Next Treatment Bed mobility, transfers, gait Focus further distance FWW or LRAD, stair mgt when able and tolerated. Precautions Lumbar Precautions Log Roll,No Twisting,Limit Bending,Lifting Restriction of 10 lbs,Gait Belt above Incisional Area Recommendations To Nursing Amount of Assist Needed 1 Person Assist Discharge Recommendations PT Discharge Recommendations SNF Rehab Other Discharge Recommendations SNF Rehab Equipment Needed for Home Before raised toilet seat with Discharge handles, BSC Transportation Needs at Discharge Private Vehicle
--- NOTE | 2020-06-13 14:25 | CM.DPC ---
DCP Cont: Called Kaylynn at [facility]. Confirmed that they can accept patient tomorrow. Updated CHITO Oconnor in orthopedics, she is aware. Let her know that patient will need updated COVID as well. P: DCP to continue to follow. Plan is for [facility] tomorrow. PASSR completed by [place]. Kaylynn indicated that she may work on transportation today. Edith Bolanos RN/Insulation Manager
[2020-06-13 15:41] LABS: COVID19 -Nasal RAPID Negative (Negative)
[2020-06-13] MEDS: OXYCODONE IR 5 MG TABLET PO (20:42)
[2020-06-13] MEDS: SENNOSIDES 8.6 MG TABLET 17.2 MG PO (20:42)
[2020-06-13] MEDS: INSULIN DETEMIR 100 UNIT/ML INSULN.PEN 21 UNIT SUBCUT (20:45)
[2020-06-13] MEDS: PRAZOSIN 1 MG CAPSULE PO (20:48)
[2020-06-14] MEDS: OXYCODONE IR 5 MG TABLET PO ×3 (00:13→12:06)
[2020-06-14 03:28] VITALS: BP 125/55; PULSE 72; RESP 16; TEMP 36.9; O2SAT 93
[2020-06-14] MEDS: LEVOTHYROXINE 50 MCG TABLET PO (05:19)
--- NOTE | 2020-06-14 06:11 | PC.NURSE ---
0520 Declined pain meds. when assessed @ 0520. Instructed to call if she needed her 5 mg. Oxycodone. Will monitor.
[2020-06-14 08:00] VITALS: BP 143/67; PULSE 77; RESP 15; TEMP 36.6; O2SAT 95
[2020-06-14] MEDS: ACETAMINOPHEN 325 MG TABLET 650 MG PO (08:29)
--- NOTE | 2020-06-14 09:10 | PT.IPTN ---
Current Diagnoses Other secondary scoliosis, lumbar region (06/11/20) Other spondylosis with radiculopathy, lumbar region (06/11/20) Spinal stenosis, lumbar region without neurogenic claudication (06/11/20) Surgery Performed Operation Date: 06/11/20 07:45 Actual Procedures p L3-4 right hemilaminectomy, L4-5. L5-S1 TLIF w. posterior instrumentation - Antelmo Patten MD Physical Therapy Treatment Note M2 PT-IP Current Condition Start: 06/11/20 13:46 Freq: NEEDED Status: Active Protocol: Document 06/12/20 10:06 AW (Rec: 06/12/20 10:55 AW [id number]) Physical Therapy Current Condition Current Condition Evaluation Date 06/12/20 Treatment Diagnosis L3-4 hemilami, L4-S1 TLIF; difficulty in walking Onset Date 06/11/20 Precautions Lumbar Precautions Log Roll,No Twisting,Limit Bending,Lifting Restriction of 10 lbs,Gait Belt above Incisional Area M3 PT-IP Subjective Start: 06/11/20 13:46 Freq: NEEDED Status: Active Protocol: Document 06/14/20 09:10 CLB (Rec: 06/14/20 13:43 CLB [id number]) Subjective Physical Therapy Visit Type Type Treatment Note Visit Start Time 09:10 Visit Stop Time 09:30 Total Visit Minutes 20 Number of [employer]ANN[employer]UTION [employer]ER Visits 4 Physical Therapy Visit Comments Patient Comments Pt willing to work with PT. Therapy Pain Assessment Pain When Pain Assessed During Mobility Pain Present Pain Present Pain Reported Location back Intensity 7 Scale Used Numeric (0 - 10) Description Radiating Pain Management Techniques Apply Heat,Modification of Treatment,Re-positioning, Timing of Activity with Medications M4 PT-IP Mobility and Gait Start: 06/11/20 13:46 Freq: NEEDED Status: Active Protocol: Document 06/14/20 09:10 CLB (Rec: 06/14/20 13:43 CLB [id number]) PT-Bed Mobility Assessment Rolling Type of Rolling Log Rolling,Roll to Left Level of Assist Standby Assistance Sit to Supine Sit to Supine Standby Assistance,1 Person Assistance PT-Transfer Assessment Sit to and From Stand Sit to and from Stand Contact Guard Assistance,1 Person Assistance,Use of Upper Extremities Equipment Transfer Assistive Device Gait Belt,Front Wheeled Walker Orthotic/Prosthetic Devices or Brace: No Transfers Transfer Destination Bed Transfer Technique pt ambulated using FWW Transfer Ability Level of Assist Contact Guard Assistance,1 Person Assistance,Use of Upper Extremities Comments Mobility Comments Pt able to scoot to edge of chair and stand CGA. Pt then ambulated in galvan ~50ft w/FWW/ CGA, pt reported radiating pain down right leg into foot 10/10 pain. Pt returned to room performing stand-sit CGA and Min A for sit-sidelying with assist of LE's onto bed, pt then able to roll to supine CGA. Pt left in bed with warm blanket on right upper leg, all needs within reach. Gait Assessment Gait Gait Assistance Required: Contact Guard Assist,1 Person Assist Distance (Feet) 50 Able to Maintain Weight Bearing Status Yes During Gait Assistive Devices Assistive Device Gait Belt,Front Wheeled Walker Orthotic/Prosthetic Devices or Brace: No Gait Deviations General Gait Pattern Antalgic,Decreased Stride Length,Decreased Feet Clearance,Flexed Trunk,Narrow Based Gait Factors Limiting Gait Function Factors Limiting Gait Function Decreased Activity Tolerance, Decreased Strength,Limited Range of Motion,Pain,Poor Safety Awareness Comments Gait Comments see mobility comments M5 PT-IP Objective Assessments Start: 06/11/20 13:46 Freq: NEEDED Status: Active Protocol: Document 06/12/20 10:06 AW (Rec: 06/12/20 10:55 AW [id number]) Orientation Orientation/Cognition Level of Alertness Alert Orientation Name,Birthday,Month,Place, Situation Safety Awareness Decreased Safety Awareness Memory Description Short Term Impaired Comments Pt repeats herself frequently and present with heightened anxiety regarding d/c plan. She is aware of her precautions, but required cues to maintain them. Gross Range of Motion Lower Extremity ROM Assessment Within Functional Limits Strength Lower Extremity Strength Assessment Bilaterally Impaired Hip 4-/5 Knee 4/5 Coordination Assessment Gross Coordination Gross Coordination WNL Sensation Assessment Sensation Gross Sensation Right LE Impaired,Left LE Impaired Light Touch Impaired Sensation Description Numbness Comments Sensation Comments Peripheral neuropathy affects light touch sensation in bilateral feet. Pt does best with shoes for ambulation. Muscle Tone Muscle Tone WNL Yes M6 PT-IP Treatment Start: 06/11/20 13:46 Freq: NEEDED Status: Active Protocol: Document 06/13/20 13:48 SP (Rec: 06/13/20 14:37 SP [id number]) Physical Therapy Treatment Education Education Provided Precautions,Safety Other Treatments Other Treatment Performed Pt completed standing LE ex when returned from walk before sitting: marching and heel raises x10 each, 1 min rest then 4 sit to stands with education on 1 vs 2 UE support needs in the moment, good slow pacing muscular control. That feels like a good leg work out. M7 PT-IP Assessment and Plan Start: 06/11/20 13:46 Freq: NEEDED Status: Active Protocol: Document 06/14/20 09:10 CLB (Rec: 06/14/20 13:43 CLB [id number]) PT Summary Assessment and Plan Potential Rehabilitation Potential Good Status of Condition at Evaluation Evolving Summary Impairments Pain,ROM,Strength,Balance, Sensation,Cognition,Bed Mobility,Transfers,Gait, Activity Tolerance Progress Towards Goals Progressing Toward Goals,Slow Progress due to Pain,Slow Progress due to Activity Tolerance Assessment Summary Pt requiring CGA for sit<> stand and ambulation and Min A for bed mobility. Pt with c/o radiating pain in right LE and foot. Goals Bed Mobility Goal Independent Transfer Goal Independent,Front Wheeled Walker Gait Goal Independent,Front Wheel Walker Gait Distance 150 Other Goals - up/down one step with unilateral rail OR with FWW CGA Days to Meet Goals 5 Frequency of Treatment Frequency Of Treatment Twice a Day Treatment Plan Physical Therapy Treatment Plan Bed Mobility Training,Transfer Training,Gait Training, Therapeutic Exercise,Balance Retraining,Post Op Education, Discharge Planning,Hot or Cold Pack,Neuromuscular Re-ed Precautions Lumbar Precautions Log Roll,No Twisting,Limit Bending,Lifting Restriction of 10 lbs,Gait Belt above Incisional Area Recommendations To Nursing Amount of Assist Needed 1 Person Assist Discharge Recommendations PT Discharge Recommendations SNF Rehab Other Discharge Recommendations SNF Rehab Equipment Needed for Home Before raised toilet seat with Discharge handles, BSC Transportation Needs at Discharge Private Vehicle
--- NOTE | 2020-06-14 10:00 | OT.IPNOTE ---
Pt in too much pain to try a shower at this time.
[2020-06-14] MEDS: TELMISARTAN 40 MG TABLET 80 MG PO (10:14)
[2020-06-14] MEDS: MAGNESIUM OXIDE 400 MG TABLET 500 MG PO (10:14)
[2020-06-14] MEDS: hydroCHLOROthiazide 25 MG TABLET PO (10:14)
[2020-06-14] MEDS: MAGNESIUM HYDROXIDE 30 ML UDC PO (10:15)
[2020-06-14] MEDS: DOCUSATE 100 MG CAPSULE PO (10:15)
[2020-06-14] MEDS: CHOLECALCIFEROL (VITAMIN D3) 5,000 UNIT TABLET 5000 UNIT PO (10:15)
[2020-06-14] MEDS: hydrOXYzine pamoate 25 MG CAPSULE PO (10:15)
[2020-06-14] MEDS: AMLODIPINE 5 MG TABLET PO (10:15)
[2020-06-14] MEDS: INSULIN DETEMIR 100 UNIT/ML INSULN.PEN 18 UNIT SUBCUT (10:22)
--- NOTE | 2020-06-14 10:40 | P.DS_ITS ---
History of Present Illness History of Present Illness Date Patient Seen: 06/14/20 Time Patient Seen: 10:53 Chief complaint: IP LUMBAR SURGERY Narrative: Please refer to previously documented HPI and chart. Discharge Providers Provider Date of admission: 06/11/20 06:05 Discharge Date: 06/14/20 Primary care physician: Manisha Anderson PA-C Consults: 06/11/20 13:08 Consult to Occupational Therapy Evaluate & Treat Comment: Physician Instructions: Evaluate and treat Consult to Physical Therapy Evaluate & Treat Comment: Physician Instructions: Evaluate and Treat Discharge provider: Leobardo Nassar PA-C Summary Hospital Course Discharge Diagnosis: 1. L3-4, L4-5, L5-S1 spinal stenosis 2. Lumbar scoliosis 3. 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 POD # 3 S/P L4-S1 TLIF Hospital Course: 74-year-old DM female with the above-listed diagnoses appropriately consented for the above listed procedure present to the OR undergoing procedure without complication or difficulty and admitted to hospital for pain management and rehabilitation. On postoperative day 3 her pain was eventually controlled with oral medications and blood sugars normalized with home insulin and hospital sliding scale correctional protocols. She was evaluated by PT/OT who recommended [facility] facility disposition. On evaluation with surgery today the patient was stable for discharge to the [facility] facility. At that time her wound was clean, dry and intact. She denied any new, related intractable pain weakness numbness tingling at her surgical site or in her bilateral lower extremities. She also denied any fever, chills, shortness of breath, chest pain and or nausea. The patient verbalized understanding postoperative care instructions. She agreed with the plan for transfer to [facility] facility and follow up with her spine surgeon in clinic in 2 weeks for re-evaluation and staple removal. Overall she was happy with her surgical result at this time. Status at Discharge Cognitive/behavioral status at discharge: oriented Functional status at discharge: uses cane/walker Overall status at discharge: patient is progressing back to baseline Exam Vital Signs (past 8 hours): - 06/14/20 03:28 06/14/20 08:00 Temperature 98.4 F 97.8 F Pulse Rate 72 77 Respiratory Rate 16 15 Blood Pressure 125/55 L 143/67 H Pulse Oximetry 93 95 Oxygen Delivery Method Room Air Oxygen Flow Rate 0 Narrative Exam Narrative: 74-year-old female evaluating eating breakfast comfortably in her chair this a.m. she is alert and oriented x3 in no apparent distress. Her wound is clean, dry and intact. There is appropriate tenderness to palpation around her incision. Her bilateral lower extremity neurovascular exam is valentín ssly normal including dorsiflexion, plantar flexion and seated straight leg raises. Her bilateral calves are nontender, compressible and soft bilaterally. Bilateral dorsal pedal is pulses are 2+. Objective Labs Result Diagrams: 06/12/20 05:05 Labs: Laboratory Results - last 24 hr 06/13/20 14:50 SARS-CoV-2 (PCR) Negative [facility] Medical History Abnormal EKG Arthritis Cardiac arrhythmia Degenerative disc disease Diabetes mellitus, type 2 Disease of thyroid gland Edema Essential (primary) hypertension Facet arthropathy, lumbosacral Fluid retention Foraminal stenosis of lumbar region Herniated nucleus pulposus, L3-4 right Herniated nucleus pulposus, L4-5 History of echocardiogram (~02/15/20) Hyperlipidemia Hypertension Lumbar canal stenosis Multilevel foraminal stenosis Osteoarthritis Osteoarthritis of spine with radiculopathy, lumbar region Prolapse of bladder Pulled hamstring Pure hypercholesterolemia Rectal pain Sacral dysfunction Scoliosis Scoliosis due to degenerative disease of spine in adult patient Surgical History H/O pelvic surgery History of eye surgery History of laminectomy History of rectopexy History of sinus surgery History of tonsillectomy History of total hysterectomy with bilateral salpingo-oophorectomy (BSO) S/P epidural steroid injection Family History Family/Other Colon cancer Grandmother Breast cancer Sister Arthritis Asthma COPD (chronic obstructive pulmonary disease) Father Cancer Mother Diabetes mellitus Heart disease Hypertension Sister Stroke Brother Vision loss Social History household members: none Smoking Status: Never smoker alcohol intake: former Discharge Assessment & Plan Assessment and Plan Assessment: 1. L3-4, L4-5, L5-S1 spinal stenosis 2. Lumbar scoliosis 3. 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 POD # 3 S/P L4-S1 TLIF Plan of Treatment: 1. Discharge to [facility] facility today. 2. Postoperative lumbar spinal fusion care and precaution protocol apply. 3. Follow-up in [address] Patten's clinic for re-evaluation and staple removal. Discharge Plan Discharge Plan Patient Disposition: SNF Transfer to: [facility] Discharge orders & Medications Prescriptions: New oxycodone 5 mg tablet 5 mg PO Q4-5H PRN (Reason: Pain, Moderate (4-6)) Qty: 60 RF: 0 docusate sodium 250 mg capsule 250 mg PO BID Qty: 30 RF: 0 acetaminophen 325 mg capsule 650 mg PO Q4H PRN (Reason: pain) Qty: 30 RF: 0 docusate sodium [DOK] 100 mg Capsule 100 mg PO BID Qty: 60 RF: 0 Continued amlodipine 5 mg Tablet 5 mg PO DAILY RF: 0 celecoxib 200 mg Capsule 200 mg PO PRN PRN (Reason: Pain) RF: 0 prazosin 1 mg Capsule 1 mg PO BEDTIME RF: 0 dicyclomine 20 mg Tablet 20 mg PO Q6H PRN (Reason: Unlisted) RF: 0 magnesium oxide 500 mg Tablet 500 mg PO DAILY RF: 0 insulin detemir U-100 100 unit/mL (3 mL) Insulin Pen 15 - 18 unit SUBCUT Q12H RF: 0 rosuvastatin 10 mg Capsule, Sprinkle 10 mg PO DAILY RF: 0 hydrochlorothiazide 25 mg Tablet 25 mg PO DAILY RF: 0 coQ10 (liposomal ubiquinol) 100 mg/mL Liquid 100 mg PO DAILY RF: 0 aspirin 81 mg tablet,chewable 81 mg PO DAILY Qty: 60 RF: 0 telmisartan 80 mg tablet 80 mg PO DAILY RF: 0 levothyroxine 50 mcg capsule 50 mcg PO DAILY RF: 0 premarin vaginal cream 0.05 gram vaginal 3XW RF: 0 krill oil 500 mg capsule 500 mg PO DAILY RF: 0 cholecalciferol (vitamin D3) 125 mcg (5,000 unit) capsule 125 mcg PO DAILY RF: 0 glimepiride 4 mg tablet 4 mg PO QNOON RF: 0 Discontinued tramadol 50 mg tablet 50 mg PO BID PRN (Reason: pain) Qty: 20 RF: 0 Follow up/Referrals: Manisha Anderson PA-C [Primary Care Provider] - Antelmo Patten MD [Physician] - (2 weeks) Diet/Activity/Treatments Diet: Diet as Tolerated and Carb-consistent/Diabetic Food texture: Regular Activity: Avoid excessive bending, lifting, and or twisting. Use front wheel walker to weight bear as tolerated with full assist and fall precautions please. Cold/Heat Therapy: Ice 20 minutes on every hour as needed and tolerated. Skin/Wound/Dressing Care Report to your healthcare provider any signs of infection, such as:: chills, fever, night sweats, increased pain, unusual drainage and unusual redness Dressing: Change dressing as needed if soiled or saturated to keep wound clean, dry and intact. Other wound treatment: Stable should be removed in 2 weeks. Special Rehabilitation Services Reason for rehabilitation: Post-operative therapy Rehab type: Physical therapy and Occupational therapy Visit Report/Discharge Packet Instructions: DI for Prescription Opioid Use, DI for Transforaminal Lumbar Interbody Fusion Stand Alone Forms: Surgery Discharge Discharge Data Primary Care Provider: Manisha Anderson I Quality MIPS - Admit Advanced Care Plan / Current Medications Measures: #47 ? Advanced Care Plan Clinician documentation instruction: document at admission. [] I confirmed that the patient's Advance Care Plan is present, code status is documented, or surrogate decision maker is listed in the patient?s medical record. [SATISFIES MIPS PERFORMANCE] If Yes, Stop Here [] The patient?s Advance Care plan is not present because: (select) [MIPS PERFORMANCE EXCEPTION/EXCLUSION] [] I confirmed today that the patient does not wish or was not able to name a surrogate decision maker or provide an Advance Care Plan. [] Hospice care is currently being provided or has been provided this calendar year [] I did NOT confirm today the presence of an Advance Care Plan or surrogate decision maker documented within the patient's medical record. [DOES NOT SATISFY MIPS PERFORMANCE] #130 - Documentation of Current Medications in the Medical Record Clinician documentation instruction: use macro the first time you see a patient. [] I have utilized all available immediate resources to obtain, update, or review the patient?s current medications. [SATISFIES MIPS PERFORMANCE] If Yes, Stop Here [] The patient is not eligible for medication reconciliation; the patient is in an emergent medical situation where delaying treatment would jeopardize the patient?s health. [MIPS PERFORMANCE EXCEPTION/EXCLUSION] [] I did NOT confirm, update or review the patient's current list of medications today. [DOES NOT SATISFY MIPS PERFORMANCE] MIPS - CL Central Venous Catheter Placement Measure: #76 ? Prevention of Central Venous Catheter (CVC) ? Related Bloodstream Infection Clinician documentation instruction: use macro every time you place a central line. [] All elements of Maximal Sterile Barrier Technique, including hand hygiene, skin prep, and sterile ultrasound technique (if used) were followed. [SATISFIES MIPS PERFORMANCE] If Yes, Stop Here [] If ?No?, the medical reason all elements were NOT used for medical reason [] (ex. emergent condition). [] Maximal Sterile Barrier Technique was not followed, no reason provided [DOES NOT SATISFY MIPS PERFORMANCE] MIPS - DC Heart Failure Measures: #5 - Heart Failure (HF): Angiotensin-Converting Enzyme (SANDRA) Inhibitor or Angiotensin Receptor Rodriguez (ARB) Therapy for Left Ventricular Systolic Dysfunction (LVSD) and #8 - Heart Failure (HF): Beta-Rodriguez Therapy for Left Ventricular Systolic Dysfunction (LVSD) Clinician documentation instruction: use macro at every CHF discharge. [] The patient has current or prior documentation of left ventricular ejection fraction (LVEF) less than 40%, or moderate or severely depressed left ventricular systolic function. Answer both: [SATISFIES MIPS PERFORMANCE] [] The patient was prescribed or already taking an Angiotensin-Converting Enzyme (SANDRA) Inhibitor, or Angiotensin Receptor Rodriguez (ARB). [] The patient was prescribed or already taking a beta-rodriguez. If Yes to Both, Stop Here [] Patient not prescribed/taking: [MIPS PERFORMANCE EXCEPTION/EXCLUSION] [] SANDRA or ARB for medical/patient/system reason(s) including [] (ex. allerg y, intolerance, contraindication) [] Beta-rodriguez for medical/patient/system reason(s) including [] (ex. allergy, intolerance, contraindication) [] Patient not prescribed/taking: [DOES NOT SATISFY MIPS PERFORMANCE] [] SANDRA or ARB, no reason given [] Beta-rodriguez, no reason given
--- NOTE | 2020-06-14 11:13 | CM.DPC ---
DCP Cont: Received discharge orders for patient. Updated Kaylynn at [facility]. She has arranged time of filler picker at noon. Updated patient. Introduced self and role. Gave her copy of her IMM form. She is hoping to shower before she goes. Updated nurse, Mabel Harding, along with white board at main nurses station. bella Millan PAC has completed prescriptions and medication sheets. PASSR completed by Dayami. COVID results negative from yesterday. Faxed over medication sheets and prescriptions, COVID results and PASSR to [facility]. Discharge Summary is pending. Gave nurse, anand Monroe number at [facility] to call for report. P: Patient is to discharge to [facility] today, with filler picker at noon. Edith Bolanos RN/Dampener Operator
[2020-06-14] MEDS: GLIMEPIRIDE 2 MG TABLET 4 MG PO (12:07)
--- NOTE | 2020-06-14 13:45 | PC.NURSE ---
Transfer: Pt feels ready to transfer to facility. Oxy at lower dose has been effective for pain and not causing her to feel over sedated. Has been voiding w/out diff. Tolerating diet w/out problems. Dressing to back was changed to a coversite. Has been following her lami precautions. Report called to Alisson at [facility] at [facility]. Reviewed hospital course. Reviewed adl's, pain med regime and insulin changes, cbg's. They do have an PROCESSING REP at their facility who will be following. Questions answered. Pt transfered to [facility].
== END 2020-06-14 12:20 | DRG 455 ==
PROVIDERS: Physician Assistant Surgical; Admitting Provider Orthopaedic Surgery Orthopaedic Surgery of the Spine; PCP Physician Assistant; Referring Provider Family Medicine; Visit Provider Orthopaedic Surgery Orthopaedic Surgery of the Spine
PROC: 0SG00AJ Fusion of Lumbar Vertebral Joint with Interbody Fusion Device, Posterior Approach, Anterior Column, Open Approach (ICD-10-PCS; principal; 2020-06-11 07:45)
DX: M48.061 Spinal stenosis, lumbar region without neurogenic claudication (principal); E03.9 Hypothyroidism, unspecified; I10 Essential (primary) hypertension; E78.5 Hyperlipidemia, unspecified; E11.9 Type 2 diabetes mellitus without complications; M47.26 Other spondylosis with radiculopathy, lumbar region; M48.07 Spinal stenosis, lumbosacral region; M41.56 Other secondary scoliosis, lumbar region; Z79.84 Long term (current) use of oral hypoglycemic drugs; Z20.822 Contact with and (suspected) exposure to COVID-19
CPT/HCPCS: 36415; 72100; 76000; 82962; 85014; 85018; 87635; 97116; 97161; 97165; 97530; 97535; C1776; C9803; C9290; J0330; J1100; J1170; J2250; J2405; J2704; J3010

== ENCOUNTER → 2021-09-20 12:38 | Outpatient (CLI) | payer MEDICARE, OTHER, SELFPAY ==
[2020-06-11 13:50] VITALS: BMI 23.6
[2021-09-20 14:17] LABS: COVID19 -Nasal RAPID Negative (Negative)
== END ==
PROVIDERS: PCP Physician Assistant; Referring Provider Orthopaedic Surgery Orthopaedic Surgery of the Spine; Visit Provider Orthopaedic Surgery Orthopaedic Surgery of the Spine
DX: Z20.822 Contact with and (suspected) exposure to COVID-19 (principal)
CPT/HCPCS: 87635

== ENCOUNTER 2021-09-23 06:22 | Inpatient (IN) | payer MEDICARE, OTHER, SELFPAY ==
[2020-06-11 13:50] VITALS: BMI 23.6
[2021-09-17 09:50] VITALS: BMI 23.8
[2021-09-23] VITALS (16 sets, daily range): BP systolic 159–228; BP diastolic 64–97; PULSE 52–66; RESP 8–18; TEMP 35.7–36.8; O2SAT 92–99; BMI 23.8
[2021-09-23] MEDS: LACTATED RINGERS 1,000 ML 42 ML IV ×2 (07:30→10:03)
--- NOTE | 2021-09-23 07:47 | PM.PREOP ---
Pre-operative Note COVID-19 COVID-19 status: Negative Result date/Date tested (Pos, Neg/Pending): 09/22/21 Criteria for continued procedure: Expected advancement of disease process, Possibility delay results in more complex future surgery or treatment, Increased loss of function, Continuing or worsening of significant or severe pain, Deterioration of the patient's condition or overall health and Delay expected to result in less-positive ultimate med/surg outcome Interval Note History & Physical reviewed/Exam performed by Physician: Yes Changes to H&P: No
[2021-09-23] MEDS: ACETAMINOPHEN IV 1,000 MG/100 ML VIAL 400 MG IV (08:00)
[2021-09-23] MEDS: CLINDAMYCIN 900 MG/50 ML PIGGYBACK 50 MG IV (08:06)
[2021-09-23] MEDS: BUPIVACAINE LIPOSOME 266 MG/20 ML VIAL INJ (11:00)
[2021-09-23] MEDS: BUPIVACAINE 0.5% (PF) 30 ML, EPINEPHrine 0.15 MG INJ (11:08)
--- NOTE | 2021-09-23 11:14 | DI.RAD.S_ITS ---
PROCEDURE: XR LUMBAR SPINE 2-3V INDICATIONS: L3-4 TLIF TECHNIQUE: 2 intraoperative views of the lumbar spine were acquired. COMPARISON: [facility], CR, XR LUMBAR SPINE 2-3V, 06/11/2020, 7:19. FINDINGS: Bones: Intraoperative fluoroscopic views demonstrate posterior fusion and discectomy from L3-S1. IMPRESSION: Discectomy and posterior fixation of the lumbosacral spine. Dictated by: Robyn Lewis M.D. on 09/23/2021 at 11:39 Approved by: Robyn Lewis M.D. on 09/23/2021 at 11:39
--- NOTE | 2021-09-23 11:20 | P.OP_ITS ---
Operative Date/Time/Diagnoses Date of procedure: 09/23/21 Time of procedure: 07:45 Pre-op diagnosis: 1. 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 Lumbar scoliosis 3. History of L4-S1 fusion with retained hardware Post-op diagnosis: same Procedure & Clinicians Procedure: 1. L3-4 posterolateral and posterior interbody fusion 2. L3-4 posterior interbody cage placement 3. L4-5, L5-S1 posterior segmental instrumentation removal 4. L4-5, L5-S1 revision laminectomy with exploration of fusion 5. L3-4, L4-5, L5-S1 posterior segmental instrumentation with pedicle screw placement 6. L4-5 posterolatearl fusion 7. Huntington of bone marrow from iliac crest through a separate incision 8. Utilization of microsurgical technique and operating microscope Same procedure as scheduled: Yes Indications: Patient has been having chronic back pain and worsening lumbar radiculopathy. Patient had prior lumbar fusion surgery and an has been having newly onset right-sided radiculopathy secondary to L3-4 foramen stenosis, which is new in the last 3 months. Patient failed multiple conservative management with worsening pain weakness and numbness in her lower extremity. Patient has been having difficulty performing activity of daily living. After discussing risks benefits of treatment options, patient elected proceed with surgery. Surgeon: Antelmo Patten University Lecturer: Mariza Barrett Click Yes if Unassisted: No Anesthesia Type: General Operative Notes Closure Type: primary Specimen(s): none sent Prosthetic devices, grafts, tissues, transplants, or devices: Globus revolve screws, Rise cage Applied: catheter Estimated Blood Loss (mL): 50 Blood products transfused: none Procedure in detail: Patient was seen in the preoperative area. Risks and benefits of the surgery was discussed with the patient. Informed consent was obtained from the patient and placed in the chart. Surgical site was marked. Patient was taken to the operative room. General anesthesia was administered. Prophylactic antibiotic was given to the patient less than 30 min before the incision was made. Patient was placed into a prone position on the Mau table. Patient's back was then prepped and draped in the sterile fashion. Time-out was performed at this time. Using patient's previous scar incision was made over the L3-4 L4-5 L5-S1 interval on the right side. Fascia was incised in line with skin incision. Patient's previously placed hardware over the L4-5, L5-S1 level was identified by dissecting down to the level the hardware using a Bovie and a Sabillon. The locking caps which was removed using Nuvasiv screwdriver. The locking danielle was then removed from the tulips of the pedicle screws using a Ronaldo. The pedicle screws were then removed using the screwdriver. The screws were all found to be loose indicating pseudoarthrosis. The Globus and MARS retractors was then placed into the wound and docked onto the L3 lamina using C-arm guidance. Using microsurgical technique and operating microscope a laminectomy facetectomy was performed by removing the L3 lamina and the L3-4 facet. The disc space at L3-4 level was identified next. And a total diskectomy was performed at L3-4 level. The endplates were decorticated using a rasp and shaver. The total diskectomy and decortication was performed at L3-4 level in order to to accomplish a L3-4 fusion. The local bone from the laminectomy and facetectomy was saved for local bone grafting. After the total diskectomy and decortication was completed, Trifecta bone graft material was combined with local bone that was harvested earlier along with DBM bone graft. At this time, a separate skin is incision was made over the iliac crest. A Jamshidi needle was inserted into the iliac crest through a separate skin incision. 5 cc of bone marrow aspiration was obtained through the separate skin incision using a Jamshidi needle from the iliac crest. The bone marrow aspiration was combined with local bone and the Trifecta bone grafting material. The bone grafting material was placed into the L3-4 interbody space along with a expandable cage. The cage was expanded to its maximum height using the torque limiting screwdriver. At this time a mirror image incision was made on the left side. The fascia was incised in line with the skin incision. Patient's previously placed hardware on the right side was then removed in the same fashion as it was on the left side. The hardware was also found to be loose indicating pseudoarthrosis. The fusion mass on the right side was exposed by performing a right-sided hemilaminectomy at L4-5 L5-S1 level. The hemilaminectomy was performed using the Kerrison rongeur to undercut the lamina at L4-5 L5-S1 as well removing additional epidural scar tissue for purpose of decompressing the epidural space. The fusion mass was explored and was found have visible motion indicating pseudoarthrosis at L4-5 level and was solid at L5-S1. Globus MARS retractor was inserted and docked onto the L3-4 L4-5 posterolateral gutter. Using the power drill, posterior-lateral decortication was performed at L3-4 L4-5 level until bleeding cortical bone was identified. The remaining bone grafting material was placed into the L3-4 L4-5 posterior lateral gutter he order to accomplish posterolateral fusion at the L3-4 L4-5 level. Using the double C-arm technique, pedicle screws were placed into the L3, L4-L5 and S1 pedicles bilaterally. This was done by placing the Jamshidi needle into the pedicles, then placing the guidewires over the Jamshidi needle, and finally placing the cannulated screws over the guidewires bilaterally. After the pedicle screws were placed, 2 titanium rods was locked into the heads of the pedicle screws using locking caps and torque limiting screwdriver. All pedicle screws has good purchase. After all the hardware was placed, and confirmed with AP and lateral C-arm imaging, the wound was then irrigated with sterile normal saline and packed with Ray-Bernadine gauze for 3 min to accomplish hemostasis. After the gauze was removed the deep fascia was closed with #1 Vicryl suture. The subcutaneous layer was closed with 2-0 Vicryl. The skin was closed with skin simón. Patient tolerated the procedure well. There were no complications. Neuro monitoring was performed throughout the procedure which was stable throughout the procedure. Complications: none Post-operative Condition: stable Disposition: PACU Plan for aftercare: Admit to inpatient hospital
[2021-09-23] MEDS: OXYCODONE IR 5 MG TABLET PO (11:52)
[2021-09-23] MEDS: hydrOXYzine pamoate 25 MG CAPSULE PO (11:52)
[2021-09-23] MEDS: lisinopriL 20 MG TABLET 40 MG PO ×2 (12:05→21:16)
[2021-09-23] MEDS: hydroCHLOROthiazide 25 MG TABLET PO (12:05)
[2021-09-23] MEDS: HYDROMORPHONE 0.5 MG INJ IV ×2 (13:16→15:26)
[2021-09-23] MEDS: SODIUM CHLORIDE 0.9% 1,000 ML 100 ML IV (13:16)
[2021-09-23] MEDS: ONDANSETRON 4 MG/2 ML INJ IV (13:28)
--- NOTE | 2021-09-23 15:19 | PT-IP ANOTE ---
Pt has been hypertensive (SBP ranging 180's to 220's) all day - preop, intraop, post op, and now on the floor. Will hold PT evaluation until more medically stable.
[2021-09-23] MEDS: CLINDAMYCIN 600 MG/50 ML PIGGYBACK 50 MG IV (17:17)
[2021-09-23] MEDS: INSULIN LISPRO 100 UNIT/ML 3ML VIAL SUBCUT ×2 (17:19→21:27)
[2021-09-23] MEDS: OXYCODONE IR 5 MG TABLET 10 MG PO ×2 (17:22→21:18)
[2021-09-23] MEDS: DOCUSATE 100 MG CAPSULE PO (21:16)
[2021-09-23] MEDS: carvediloL 3.125 MG TABLET PO (21:18)
[2021-09-23] MEDS: AMLODIPINE 5 MG TABLET 2.5 MG PO (21:19)
[2021-09-23] MEDS: SENNOSIDES 8.6 MG TABLET 17.2 MG PO (21:20)
[2021-09-23] MEDS: ACETAMINOPHEN 325 MG TABLET 650 MG PO (21:21)
[2021-09-23] MEDS: INSULIN GLARGINE 100 UNIT/ML 3ML PEN 20 UNIT SUBCUT (21:27)
[2021-09-24] VITALS: BP 185/69; PULSE 62; RESP 18; TEMP 36.3; O2SAT 99
[2021-09-24] MEDS: CLINDAMYCIN 600 MG/50 ML PIGGYBACK 50 MG IV (00:06)
[2021-09-24] MEDS: SODIUM CHLORIDE 0.9% 1,000 ML 100 ML IV (00:06)
[2021-09-24] MEDS: OXYCODONE IR 5 MG TABLET 10 MG PO ×3 (02:17→13:43)
[2021-09-24 04:15] VITALS: BP 183/57; PULSE 66; RESP 17; TEMP 36.2; O2SAT 98
[2021-09-24] MEDS: LEVOTHYROXINE 50 MCG TABLET PO (06:07)
[2021-09-24 06:28] LABS: Hematocrit 30.4 % (36-46); Hemoglobin 10.5 g/dL (12.0-16.0)
--- NOTE | 2021-09-24 07:20 | PM.DS.1 ---
History of Present Illness History of Present Illness Date Patient Seen: 09/24/21 Time Patient Seen: 07:21 Chief complaint: Low back pain Narrative: Patient's pain is mild. Denies fever or chills. No nausea vomiting. She has no chest pain or shortness of breath. She states she has been working with her textile clothing and footwear mechanic for better blood pressure control. Patient has an appointment with her textile clothing and footwear mechanic in October for recheck of her blood pressure and modifying her blood pressure medication as needed. Discharge Providers Provider Date of admission: 09/23/21 06:22 Discharge Date: 09/24/21 Primary care physician: Manisha Anderson PA-C Consults: 09/23/21 12:55 Consult to Occupational Therapy Evaluate & Treat Comment: Physician Instructions: Evaluate and treat Consult to Physical Therapy Evaluate & Treat Comment: Physician Instructions: Evaluate and Treat Discharge provider: Isidro Bergman PA-C Exam Vital Signs (past 8 hours): - 09/24/21 00:00 09/24/21 04:15 Temperature 97.3 F L 97.2 F L Pulse Rate 62 66 Respiratory Rate 18 17 Blood Pressure 185/69 H 183/57 H Pulse Oximetry 99 98 Oxygen Flow Rate 0 0 Oxygen Delivery Method Room Air Oxygen Flow Rate 0 Narrative Exam Narrative: Pleasant 75-year-old female resting comfortably in bed in no apparent distress. Motor functions intact bilateral lower extremities. Sensation grossly intact to light touch bilateral lower extremities Const General: cooperative, comfortable and well developed HENMT Head: normal to inspection Resp Effort & Inspection: normal respiratory effort and able to speak in complete sentences Objective Labs Result Diagrams: 09/24/21 05:48 Labs: Laboratory Results - last 24 hr 09/24/21 05:48 Hgb 10.5 L Hct 30.4 L PFSH Medical History Abnormal EKG Anesthesia complication Arthritis Cardiac arrhythmia Degenerative disc disease Diabetes mellitus, type 2 Disease of thyroid gland Edema Essential (primary) hypertension Facet arthropathy, lumbosacral Fluid retention Foraminal stenosis of lumbar region Herniated nucleus pulposus, L3-4 right Herniated nucleus pulposus, L4-5 History of echocardiogram (~02/15/20) Hyperlipidemia Hypertension Lumbar canal stenosis Multilevel foraminal stenosis Osteoarthritis Osteoarthritis of spine with radiculopathy, lumbar region Prolapse of bladder Pulled hamstring Pure hypercholesterolemia Rectal pain Sacral dysfunction Scoliosis Scoliosis due to degenerative disease of spine in adult patient Surgical History H/O pelvic surgery History of eye surgery History of fusion of lumbar spine (06/11/20) History of laminectomy History of rectopexy History of sinus surgery History of tonsillectomy History of total hysterectomy with bilateral salpingo-oophorectomy (BSO) S/P epidural steroid injection Family History Family/Other Colon cancer Grandmother Breast cancer Sister Arthritis Asthma COPD (chronic obstructive pulmonary disease) Father Cancer Mother Diabetes mellitus Heart disease Hypertension Sister Stroke Brother Vision loss Social History household members: none Smoking Status: Never smoker alcohol intake: current Discharge Assessment & Plan Assessment and Plan Assessment: Patient progressing as expected Patient is hypertensive and has been working with her textile clothing and footwear mechanic over last several months to get under better control. She does have a follow-up with her textile clothing and footwear mechanic in October. Patient's blood sugars have been running high since surgery. She is on a low sliding scale here in the hospital and that has been increased to a high sliding scale for better blood sugar control. Plan of Treatment: Mobilize with physical therapy, limit bending, twisting, lifting Discontinue [place] catheter Multimodal pain management Follow-up with [facility] in 2 weeks Disposition home after physical therapy today if safe for home environment. Discharge Plan Discharge Plan Patient Disposition: Home Discharge orders & Medications Prescriptions: New acetaminophen 325 mg Tablet 650 mg PO Q6HR PRN (Reason: Pain, Mild (1-3)) Qty: 60 0RF docusate sodium 100 mg Capsule 100 mg PO BID Qty: 20 0RF oxycodone 5 mg Tablet 5 mg PO Q3HR PRN (Reason: Pain, Severe (7-10)) Qty: 60 0RF Continued dicyclomine 20 mg Tablet 20 mg PO Q6H PRN (Reason: IBS symptoms) hydrochlorothiazide 25 mg Tablet 25 mg PO DAILY coQ10 (liposomal ubiquinol) 100 mg/mL Liquid 100 mg PO DAILY aspirin 81 mg tablet,chewable 81 mg PO DAILY Qty: 60 0RF amlodipine 2.5 mg Tablet 2.5 mg PO BEDTIME insulin detemir U-100 100 unit/mL (3 mL) Insulin Pen 20 - 21 unit SUBCUT BEDTIME insulin detemir U-100 100 unit/mL (3 mL) Insulin Pen 19 unit SUBCUT QAM carvedilol 3.125 mg Tablet 3.125 mg PO BID Rx Instructions: must administer with a meal/food lisinopril 40 mg Tablet 40 mg PO BID levothyroxine 50 mcg capsule 50 mcg PO DAILY premarin vaginal cream 0.05 gram vaginal 3XW krill oil 500 mg capsule 500 mg PO DAILY glimepiride 4 mg tablet 4 mg PO QNOON Discontinued acetaminophen 325 mg capsule 650 mg PO Q4H PRN (Reason: pain) Qty: 30 0RF Follow up/Referrals: Mainsha Anderson PA-C [Primary Care Provider] - Antelmo Patten MD [Physician] - (2 weeks) Diet/Activity/Treatments Diet: Carb-consistent/Diabetic Activity: Weight-bearing as tolerated, limit bending, twisting, lifting Cold/Heat Therapy: Ice to back as needed Skin/Wound/Dressing Care Report to your healthcare provider any signs of infection, such as:: chills, fever, increased pain, unusual drainage and unusual redness Dressing: Keep dressing clean and dry Visit Report/Discharge Packet Instructions: DI for Heart Failure, DI for Prescription Opioid Use, DI for Transforaminal Lumbar Interbody Fusion Stand Alone Forms: Surgery Discharge Discharge Data Primary Care Provider: Manisha Anderson I
--- NOTE | 2021-09-24 08:58 | DIET.CONS2 ---
Dietary Inpatient Consultation Note Admission Date: 09/23/2021 06:22 75y surgical patient screened by RD for BG 330. Pt assigned general diet though pt on glimeperide and insulin at home. RD changed pts diet order to Consistent Carb 3 as BG goal is 120-180 for good post-surgical healing. Diet: 09/24/21 Lunch Carbohydrate Consistent Diet Diet Modifications: Safety Tray needed?: No Carbohydrate level: Medium (3 CHO) Nutrition Percent Meal Consumed 100% 09/23/21 17:44 Electronically Signed by: Jessi Patton 09/24/21 08:58 Clinical Dietitian [address] [id number]
[2021-09-24 09:00] VITALS: BP 188/64; PULSE 54; RESP 16; TEMP 36.6; O2SAT 96
[2021-09-24] MEDS: hydroCHLOROthiazide 25 MG TABLET PO (09:41)
[2021-09-24] MEDS: ACETAMINOPHEN 325 MG TABLET 650 MG PO (09:41)
[2021-09-24] MEDS: carvediloL 3.125 MG TABLET PO (09:43)
[2021-09-24] MEDS: lisinopriL 20 MG TABLET 40 MG PO (09:43)
[2021-09-24] MEDS: DOCUSATE 100 MG CAPSULE PO (09:43)
[2021-09-24] MEDS: INSULIN GLARGINE 100 UNIT/ML 3ML PEN 19 UNIT SUBCUT (09:45)
[2021-09-24] MEDS: INSULIN LISPRO 100 UNIT/ML 3ML VIAL SUBCUT ×2 (09:46→13:24)
--- NOTE | 2021-09-24 10:32 | OT.IP.EVAL ---
Current Diagnoses Spinal stenosis, lumbar region with neurogenic claudication (09/23/21) Arthrodesis status (09/23/21) Surgery Performed Operation Date: 09/23/21 07:45 Actual Procedures p Translaminar Interbody Fusion/Laminotomy L3-4,L-4-S1, [id number] - Antelmo Patten MD Past Medical History (Last Reviewed 09/24/21 @ 07:22 by Isidro Bergman PA-C) Abnormal EKG Anesthesia complication Arthritis Cardiac arrhythmia Degenerative disc disease Diabetes mellitus, type 2 Disease of thyroid gland Edema Essential (primary) hypertension Facet arthropathy, lumbosacral Fluid retention Foraminal stenosis of lumbar region Herniated nucleus pulposus, L3-4 right Herniated nucleus pulposus, L4-5 History of echocardiogram (~02/15/20) Hyperlipidemia Hypertension Lumbar canal stenosis Multilevel foraminal stenosis Osteoarthritis Osteoarthritis of spine with radiculopathy, lumbar region Prolapse of bladder Pulled hamstring Pure hypercholesterolemia Rectal pain Sacral dysfunction Scoliosis Scoliosis due to degenerative disease of spine in adult patient Surgical History (Last Reviewed 09/24/21 @ 07:22 by Isidro Bergman PA-C) H/O pelvic surgery History of eye surgery History of fusion of lumbar spine (06/11/20) History of laminectomy History of rectopexy History of sinus surgery History of tonsillectomy History of total hysterectomy with bilateral salpingo-oophorectomy (BSO) S/P epidural steroid injection Occupational Therapy Inpatient Evaluation/Re-Eval M1 PT/OT-IP Prior Functional Status Start: 09/24/21 11:26 Freq: NEEDED Status: Active Protocol: Document 09/24/21 10:03 [facility] (Rec: 09/24/21 11:43 [facility] [id number]) Medical Review Prior Functional Status Communication Independent Mobility and Gait Pt states uses her FWW at home when having pain. Activities of Daily Living and IADL's Pt states able to do all her ADl's on her own. Social History Household Members none Living Arrangements House Number of Floors (Floors) One Floor Number of Stairs To Enter/Railing? One step from the front door and garage. Home Environment Standard Height Toilet,Tub/ Shower Home Equipment Front Wheel Walker,Straight Cane,Tub Transfer Bench, Food Mobile Driver Additional Social History Comment Pt states someone will be with her during the day, but states will be by herself at night. M2 OT-IP Current Condition Start: 09/24/21 11:26 Freq: Status: Active Protocol: Document 09/24/21 10:03 [facility] (Rec: 09/24/21 11:43 [facility] [id number]) Occupational Therapy Current Condition Current Condition Evaluation Date 09/24/21 Treatment Diagnosis S/p L3-4 TLIF with L4-S1 HWR, L3-S1 PSF Diagnosis Onset Date 09/23/21 Post Operative Precautions Abdominal Surgery Precautions Log Roll,Lifting Restrictions, Gait Belt above Incisional Area M3 OT- IP Subjective and Pain Start: 09/24/21 11:26 Freq: Status: Active Protocol: Document 09/24/21 10:03 [facility] (Rec: 09/24/21 11:43 [facility] [id number]) OT- Subjective Occupational Therapy Visit Type Type Initial Evaluation Visit Start Time 10:03 Visit Stop Time 10:32 Total Visit Minutes 29 Occupational Therapy Visit Comments Patient Comments Pt agreed to get up. Pt's BP running high but nurse okay with having pt get up as pt has been running high with her BP since admission. Patient/Caregiver Goals TO go home. OT Pain Assessment Pain When Pain Assessed During Mobility Pain Present Pain Present Pain Reported Location back Intensity 3 Scale Used Numeric (0 - 10) M4 OT- IP ADL's Start: 09/24/21 11:26 Freq: Status: Active Protocol: Document 09/24/21 10:03 [facility] (Rec: 09/24/21 11:43 [facility] [id number]) OT [id number] Comments OT Self-Feeding Comments Not at meal time. OT ADL-Grooming Comments OT Grooming Comments NOt performed. OT ADL-Oral Care Comments Oral Care Comments Pt aware to hinge at her hips or spit in to a cup best follow her back precautions. OT ADL-Dressing General Eval Lower Body Dressing Ability Moderate Assistance Comments OT Dressing Comments Pt not able to comfortably cross her legs as she did before to jakob/doff her socks and now needing assist. OT ADL-Toileting General Evaluation Toileting Ability Total Assistance Comments OT Toileting Comments [place] in place. Suggested pt wear pads/brief at night OT ADL-Bathing Comments OT Bathing Comments Not performed. Pt states will have assist at home and has a tub bench M5 OT- IP IADL's Start: 09/24/21 11:26 Freq: Status: Active Protocol: Document 09/24/21 10:03 [facility] (Rec: 09/24/21 11:43 [facility] [id number]) OT-Instrumental Activities of Daily Living Home Safety Awareness Awareness of Need for Assistance at Home Decreased Awareness Home Safety Comments Pt a bit distracted and forgetful and at this time would be best for pt to have someone with her at all times. Pt agreed and now trying to set up to have someone come and stay with her at night. M6 OT- IP Functional Cognition Start: 09/24/21 11:26 Freq: Status: Active Protocol: Document 09/24/21 10:03 [facility] (Rec: 09/24/21 11:43 [facility] [id number]) Cognitive Factors Limiting Selfcare Function Cognitive Ability Level of Alertness Alert Patient Orientation Name,Place,Situation Attention Span Ability Capable of Focused Attention, Capable of Sustained Attention Ability to Follow Commands Able to Follow One Step Commands Safety Awareness Decreased Recall of Precautions Cognitive Comments Cognitive Assessment Comments Pt needing cues for state her precautions. Pt a bit distracted and forgetful and at this time would be best for someone to stay with her 20/10 if going home. OT- Vision and Hearing OT- Hearing Assessment OT- Hearing Assessment Hearing Impaired,Use of Hearing Aids OT- Vision Assessment Visual Acuity Glasses All The Time M7 OT- IP Mobility and Balance Start: 09/24/21 11:26 Freq: Status: Active Protocol: Document 09/24/21 10:03 [facility] (Rec: 09/24/21 11:43 [facility] [id number]) OT- Bed Mobility Assessment Rolling Level of Assistance Standby Assistance Supine to Sit Supine to Sit Assist Standby Assistance OT-Transfer Assessment Sit to and From Stand Sit to and from Stand Minimal Assistance Transfers Transfer Ability Minimal Assistance Technique Transfer Destination Bed,Chair Transfer Technique Stand Step Pivot Devices Transfer Assistive Devices Gait Belt,Front Wheeled Walker Comments Mobility Comments Suggested pt to get tennis balls for her back legs of the of her FWW as it tends to stick to the floor. Increased time and use of grab bar to help roll and increased time to get upright. LANCE to stand and vc to push up from the bed to stand. LANCE to transfer to FWW. BP supine 186/75, sitting 198/77, after transfer 218/98. OT- Balance Assessment Sitting Balance and Reactions Static Sitting Balance Ability Good Dynamic Sitting Balance Ability Good Standing Balance and Reactions Static Standing Balance Ability Fair M8 OT- IP Objective Assessments Start: 09/24/21 11:26 Freq: Status: Active Protocol: Document 09/24/21 10:03 [facility] (Rec: 09/24/21 11:43 [facility] [id number]) OT-Muscle Tone Assessment Muscle Tone WNL Yes M9 OT- IP Assessment and Plan Start: 09/24/21 11:26 Freq: Status: Active Protocol: Document 09/24/21 10:03 [facility] (Rec: 09/24/21 11:43 [facility] [id number]) OT Summary Assessment and Plan Potential Rehabilitation Potential Good Analytic Complexity at Evaluation Low Summary OT Impairments Balance,Functional Mobility, Grooming,Dressing,Toileting, Bathing,Toilet Transfers, Shower Transfers,Activity Tolerance Progress Towards Goals Slow Progress due to Medical Issues Assessment Summary Pt low complexity and main barriers are high BP, pt a bit distracted, has a step at home and will benefit from 24/ 7 assist at home. Pt initially states was only going to have assist during the day but now realizing that she will call someone to also come and stay with her at night so that she will have 24/7 assist. Goals Grooming Goal Independent Dressing Goal Independent Toileting Goal Independent Bathing Goal Independent Toilet Transfer Goal Independent Shower Transfer Goal Independent Days to Meet Goals 5 Frequency of Treatment Frequency Of Treatment Once a Day Treatment Plan OT Treatment Plan ADL Training,Functional Mobility,Patient/Family Education,Discharge Planning Other Treatment Recommendations and Next Showr if still here Treatment Focus Discharge Recommendations OT Discharge Recommendations Home with 24/7 Assist Available Transportation Needs at Discharge Private Vehicle
--- NOTE | 2021-09-24 10:40 | PT.IIE ---
Current Diagnoses Spinal stenosis, lumbar region with neurogenic claudication (09/23/21) Arthrodesis status (09/23/21) Surgery Performed Operation Date: 09/23/21 07:45 Actual Procedures p Translaminar Interbody Fusion/Laminotomy L3-4,L-4-S1, [id number] - Antelmo Patten MD Surgical History (Last Reviewed 09/24/21 @ 07:22 by Isidro Bergman PA-C) H/O pelvic surgery History of eye surgery History of fusion of lumbar spine (06/11/20) History of laminectomy History of rectopexy History of sinus surgery History of tonsillectomy History of total hysterectomy with bilateral salpingo-oophorectomy (BSO) S/P epidural steroid injection Medical History (Last Reviewed 09/24/21 @ 07:22 by Isidro Bergman PA-C) Abnormal EKG Anesthesia complication Arthritis Cardiac arrhythmia Degenerative disc disease Diabetes mellitus, type 2 Disease of thyroid gland Edema Essential (primary) hypertension Facet arthropathy, lumbosacral Fluid retention Foraminal stenosis of lumbar region Herniated nucleus pulposus, L3-4 right Herniated nucleus pulposus, L4-5 History of echocardiogram (~02/15/20) Hyperlipidemia Hypertension Lumbar canal stenosis Multilevel foraminal stenosis Osteoarthritis Osteoarthritis of spine with radiculopathy, lumbar region Prolapse of bladder Pulled hamstring Pure hypercholesterolemia Rectal pain Sacral dysfunction Scoliosis Scoliosis due to degenerative disease of spine in adult patient Physical Therapy Inpatient Evaluation/Re-Eval M1 PT/OT-IP Prior Functional Status Start: 09/23/21 13:32 Freq: NEEDED Status: Active Protocol: Document 09/24/21 10:40 AB (Rec: 09/24/21 12:11 AB [id number]) Medical Review Prior Functional Status Medical History Reviewed Yes Communication able to make needs known Mobility and Gait pt stated that she is independent with all mobilities and ambulation withou tAD but occasionally uses a FWW due to pain Social History Household Members none Living Arrangements House Number of Floors (Floors) One Floor Number of Stairs To Enter/Railing? One step to enter Home Environment Standard Height Toilet,Tub/ Shower Home Equipment Front Wheel Walker,Straight Cane,Tub Transfer Bench,Hand Held Shower,Cognos Architect,Grab Bars In Shower Additional Social History Comment stated that her son will come in the morning and family day care worker and be with her to assist ; her niece will be able to stay with her for the first few days to assist her or as needed. pt has an adjustable bed M2 PT-IP Current Condition Start: 09/23/21 13:32 Freq: NEEDED Status: Active Protocol: Document 09/24/21 10:40 AB (Rec: 09/24/21 12:11 AB [id number]) Physical Therapy Current Condition Current Condition Evaluation Date 09/24/21 Treatment Diagnosis s/p L3-4, L4-5 TLIF; L3-S1 instrum; difficulty in walking Onset Date 09/23/21 M3 PT-IP Subjective Start: 09/23/21 13:32 Freq: NEEDED Status: Active Protocol: Document 09/24/21 10:40 AB (Rec: 09/24/21 12:11 AB [email or web address]) Subjective Physical Therapy Visit Type Type Initial Evaluation Visit Start Time 10:40 Visit Stop Time 11:15 Total Visit Minutes 35 Number of CARTOON ARTIST Visits 0 Physical Therapy Visit Comments Patient Comments agreeable to do PT Therapy Pain Assessment Pain When Pain Assessed At Rest Pain Present Pain Present Pain Reported Location back Intensity 4 Scale Used Numeric (0 - 10) Pain Management Techniques Apply Cold,Distraction, Modification of Treatment,Re- positioning,Timing of Activity with Medications M4 PT-IP Mobility and Gait Start: 09/23/21 13:32 Freq: NEEDED Status: Active Protocol: Document 09/24/21 10:40 AB (Rec: 09/24/21 12:11 AB [id number]) PT-Bed Mobility Assessment Rolling Type of Rolling Log Rolling Level of Assist Standby Assistance Supine to Sit Supine to Sit Standby Assistance Sit to Supine Sit to Supine Standby Assistance PT-Transfer Assessment Sit to and From Stand Sit to and from Stand Standby Assistance,1 Person Assistance,Use of Upper Extremities Equipment Transfer Assistive Device Gait Belt,Front Wheeled Walker Orthotic/Prosthetic Devices or Brace: No Transfers Transfer Destination Bed,Chair Transfer Technique Stand Step Pivot Transfer Ability Level of Assist Standby Assistance,1 Person Assistance,Use of Upper Extremities Comments Mobility Comments pt sitting on chair and agreed to do PT. reviewed back precautions and log roll bed mobility. BP: 192/74. pt has been seeing her insurance salesperson for BP medication management. pt completed sit to stand SBA and completed step transfer to bed SBA using FWW. completed log roll sit<>supine SBA. ambulated out in the hallway to the platform step. educated on stair climbing. completed up/down platform step using FWW CGA and initial cues provided on first attempt but able to complete without cues on 2nd attempt. pt ambulated more in the hallway ~ 75 ft using FWW SBA. sat on chair and positioned. call light and table placed within reach. i nformed nurse regarding pt' s mobility Gait Assessment Gait Gait Assistance Required: Standby Assistance Distance (Feet) 75 Able to Maintain Weight Bearing Status Yes During Gait Assistive Devices Assistive Device Gait Belt,Front Wheeled Walker Orthotic/Prosthetic Devices or Brace: No Gait Deviations General Gait Pattern Decreased Stride Length, Decreased Feet Clearance Factors Limiting Gait Function Factors Limiting Gait Function Decreased Activity Tolerance, Decreased Strength,Limited Range of Motion,Pain,Poor Balance,Poor Safety Awareness Stair Climbing Assessment Evaluation Level of Assist On Stairs Contact Guard Assistance Devices Stair Climbing Assistive Devices Front Wheel Walker Technique/Endurance Stair Climbing Direction Ascend and Descend Stair Climbing Technique Step to Step Number of Steps Climbed 1 Query Text: Stair Climbing Set # Repetitions (reps) 2 PT-Balance Assessment Sitting Balance and Reactions Static Sitting Balance Ability Good Dynamic Sitting Balance Ability Good Standing Balance and Reactions Static Standing Balance Ability Fair Dynamic Standing Balance Ability Fair Device Used FWW M5 PT-IP Objective Assessments Start: 09/23/21 13:32 Freq: NEEDED Status: Active Protocol: Document 09/24/21 10:40 AB (Rec: 09/24/21 12:11 AB [id number]) Orientation Orientation/Cognition Level of Alertness Alert Orientation Name,Place,Situation Language Function Ability Hard of Hearing Safety Awareness Decreased Safety Awareness Memory Description No Deficits Noted Gross Range of Motion Lower Extremity ROM Assessment Within Functional Limits Strength Lower Extremity Strength Hip 4-/5 Knee 4-/5 Coordination Assessment Gross Coordination Gross Coordination WNL Sensation Assessment Sensation Gross Sensation WNL Muscle Tone Muscle Tone WNL Yes M6 PT-IP Treatment Start: 09/23/21 13:32 Freq: NEEDED Status: Active Protocol: Document 09/24/21 10:40 AB (Rec: 09/24/21 12:11 AB [id number]) Physical Therapy Treatment Education Education Provided Precautions,Weight Bearing Status,Safety M7 PT-IP Assessment and Plan Start: 09/23/21 13:32 Freq: NEEDED Status: Active Protocol: Document 09/24/21 10:40 AB (Rec: 09/24/21 12:11 AB [id number]) PT Summary Assessment and Plan Potential Rehabilitation Potential Good Status of Condition at Evaluation Stable Summary Impairments Pain,ROM,Strength,Balance, Coordination,Sensation,Tone, Cognition,Bed Mobility, Transfers,Gait,Activity Tolerance Assessment Summary pt requiring SBA to CGA with mobility using FWW. pt will have her family to assist her at home. pt may go home when medically stable. Goals Bed Mobility Goal Independent Transfer Goal Independent,Front Wheeled Walker Gait Goal Independent,Front Wheel Walker Gait Distance 200 Other Goals up/donw 1 step using FWW mod I Days to Meet Goals 5 Frequency of Treatment Frequency Of Treatment Twice a Day Treatment Plan Physical Therapy Treatment Plan Bed Mobility Training,Transfer Training,Gait Training, Therapeutic Exercise,Balance Retraining,Post Op Education, Discharge Planning,Hot or Cold Pack,Neuromuscular Re-ed, Coordination Retraining,Manual Therapy Precautions Lumbar Precautions Log Roll,No Twisting,Limit Bending,Lifting Restriction of 10 lbs,Gait Belt above Incisional Area Discharge Recommendations PT Discharge Recommendations Home with Assistance Transportation Needs at Discharge Private Vehicle
[2021-09-24] MEDS: GLIMEPIRIDE 2 MG TABLET 4 MG PO (11:14)
--- NOTE | 2021-09-24 11:15 | CM.DANOTE ---
PAULY Note: Payor: Medicare PCP: Justin Pt is a 75 y.o. F status post TLIF on 09/23. Pt is hypertensive and has been coordinating care with scene and lighting design lecturer. Pt has been having high blood sugars and is currently on a low sliding scale and just increased to a high sliding scale for better blood control. Pt is to work with PT prior to her discharge. Per MD, pt is medically stable for discharge today. DCP met with pt this morning bedside. Pt up and eating breakfast in bed. DCP introduced herself and role. Pt states that she lives alone in [place] in a 1 story house. Pt uses a walker and cane sometimes to get around. Pt states she has grab bars installed and an elevated bath bench and toilet seat. Pt states that Nura, her son, will pick her up today once she discharges and will be staying with her for two weeks as he works from home. Pt states that she is fairly independent at baseline. Pt declines any needs at this time. White board updated and instructed to call with any other questions that may arise. P: Pt to discharge home today via son POV. Danette Davis RN/PAULY Discharge Planning/Care Management CM Discharge Assessment Start: 09/24/21 09:11 Freq: Status: Active Protocol: Document 09/24/21 09:11 JESS (Rec: 09/24/21 09:13 AJ [id number]) Discharge Planning Assessment Assigned Recreational Therapy Technician Danette Davis RN/PAULY Advance Directives? Yes Advance Directives on File No History Provided By Patient,Medical Record Prior Living Arrangements House Household Members none Type of transporation used prior to Drives own vehicle admit Willing to Return to Facility? No Independent with ADL's Yes Is patient alert and oriented? Yes Caregiver for Another No DME Already Rented / Owned Bath Bench,FWW / Walker,Cane Comment Grab bars Barriers to Discharge No Discharge Plan Home Referrals Initiated None needed Whiteboard Updated in Patient Room with Yes name and ext. # of Recreational Therapy Technician Comment Instructed to call Review Status In Process Please Provide Date Initial DC 09/24/21 Assessment Was Performed Next Review Type Continued Stay Review Pre-Anesthesia Assessment Start: 09/17/21 09:50 Freq: Status: Complete Protocol: Document 09/17/21 09:50 CAB (Rec: 09/17/21 10:38 CAB [id number]) Pre-Anesthesia Assessment Preferred Name Mabel Patient Information Reviewed Via Phone Assessment Assessment Completed With Patient H&P Completed Within 30 Days Yes Diagnostic Results BMP/CMP,CBC,EKG Comment Outside labs/ECG scanned, COVID screen @ [facility] 09/20/21 Primary Care Provider Manisha Anderson Seen Specialist in Last 12 Months Yes Specialist Seen It Training Specialist,Orthopedist,Other Primary Language Trinidadian Preferred Language Trinidadian Photographic Intelligence Officer Required No Height 162.56 cm Weight 63.049 kg Body Mass Index (BMI) 23.8 Hearing Ability Hard of Hearing,Use of Hearing Aid Visual Impairment No Limitations Visual Assist None Dentition Type Teeth, Natural Present Barriers to Learning Auditory Other Aids No Hx Anesthesia Reactions Yes: PONV Hx Family Anesthesia Reaction No Hx Malignant Hyperthermia No Hx Blood Transfusions No Hx Blood Transfusion Reaction No Anesthesia Review Requested No Studio Set Up Worker No alcohol intake current alcohol intake frequency holidays/special occasions only Smoking Status Never smoker Substance Use Type does not use Pain Present Pain Reported Musculoskeletal Symptoms Abnormal Gait,Back Pain, Difficulty Walking History of Falling (Recent or History of No ) Patient is completely paralyzed or No completely immobile Mental Status Oriented to own ability Is patient on oxygen? No Does patient have DALTON/SOB No Hx Sleep Apnea No CPAP/BIPAP use not prescribed Currently Taking a Beta Rodriguez No Can You Climb a Flight of Stairs Without Yes SOB Hx Chest Pain No Hx SOB No Hx Syncope or Dizziness No Anti-Coagulant Therapy Yes: ASA 81mg/day Has a It Training Specialist Yes: Dr. Jung Cardiac Testing No Hx Pacemaker/ICD No Pacemaker Rep Required? No Diet Type At Home Diabetic dysphagia No Gastrointestinal Symptoms Reflux Urinary Catheter Present No Hx Urinary Self Catheterization No Diabetes Yes: Pt checks blood sugar bid -tid Patient No Lactating No Hx Drug Resistant Organism No Presence of External or Internal Medical Yes: Lumbar hardware Devices Have you had any close contact with No someone diagnosed with COVID-19? Received a COVID vaccine? Yes Received all doses? Yes Marital Status / Lives With none Prior Living Arrangements House Number of Floors (Floors) One Floor Support System Family Does the Patient Have Assistance After Yes: Son and niece will stay w Surgery /pt but not at night Patient Discharge Plan Description Return Home Comment Pt advised 2-3 day length of stay per surgeon Feels Safe in Current Environment Yes Been Physically Hurt or Threatened By a No Person in Current Environment Do you have thoughts of harming yourself None or others? Are you currently considering suicide? No Do you have a plan to hurt yourself or No Plan others? Do You Have Any Spiritual Beliefs That No May Affect Your HC Choices? Do You Have Any Cultural Practices That No May Affect Your HC Choices? Who Can We Speak to About Patient's Care Family, friends Identifying Code for Release of Patient Declines to issue Information Health Care Proxy/Next of Kin Jose E Elkins Health Care Proxy Phone Number Nura - [phone]; Jose E Emergency Contact Name Jose E Elkins Emergency Contact Phone Number Nura - [phone]; Jose E Advance Directives? Yes Advance Directives on File No Power of Woodwork Salvage Inspector Yes Power of Woodwork Salvage Inspector Name Jose A Power of Woodwork Salvage Inspector Phone Number Nura - [phone]; Jose E PAC Instructions Diabetes instructions,Durable medical equipment,Medications to take/avoid,Nasal antibiotic ,No ETOH/petroleum product on skin DOS,NPO,Post-op transportation,Sensory aids, Sturdy shoes/comfortable clothes,Do not bring valuables and remove jewelry
--- NOTE | 2021-09-24 18:12 | PC.NURSE ---
Discharge: Seen by PA and given d/c instructions. Seen by PT/OT and passed. She has had previous back surgery and understands and knows her lami precautions. They have given her final instructions. [place] removed and has voided. Diet tolerated w/out problems. PO pain meds have been effective. Pt has help set up at home. Discharge packet reviewed w/pt by Benjamin MORALES as well as Benjamin changed low bulky dressing on back to a coversite. Feels ready to d/c to home. D/c to home via auto with family.
== END 2021-09-24 16:30 | disposition home or self-care (01) | DRG 454 ==
LOC: OR 06:23 → AC 06:24
PROVIDERS: Admitting Provider Orthopaedic Surgery Orthopaedic Surgery of the Spine; PCP Physician Assistant; Referring Provider Orthopaedic Surgery Orthopaedic Surgery of the Spine; Visit Provider Orthopaedic Surgery Orthopaedic Surgery of the Spine
PROC: 0SG00AJ Fusion of Lumbar Vertebral Joint with Interbody Fusion Device, Posterior Approach, Anterior Column, Open Approach (ICD-10-PCS; principal; 2021-09-23 07:45)
DX: M48.062 Spinal stenosis, lumbar region with neurogenic claudication (principal); M96.0 Pseudarthrosis after fusion or arthrodesis; M48.07 Spinal stenosis, lumbosacral region; M41.56 Other secondary scoliosis, lumbar region; M54.16 Radiculopathy, lumbar region; M96.1 Postlaminectomy syndrome, not elsewhere classified; I10 Essential (primary) hypertension; E11.65 Type 2 diabetes mellitus with hyperglycemia; E03.9 Hypothyroidism, unspecified; Z79.84 Long term (current) use of oral hypoglycemic drugs; Z98.1 Arthrodesis status; Z20.822 Contact with and (suspected) exposure to COVID-19; Z79.4 Long term (current) use of insulin
CPT/HCPCS: 36415; 72100; 76000; 82962; 85014; 85018; 87635; 97161; 97165; C1713; C9290; J0131; J0171; J0330; J1100; J1170; J1815; J2250; J2405; J2704; J3010

== ENCOUNTER 2022-06-05 11:12 | Emergency (ER) | payer MEDICARE, OTHER, SELFPAY ==
[2021-09-23 13:29] VITALS: BMI 23.8
[2022-06-05 11:20] VITALS: BP 217/85; PULSE 70; RESP 18; TEMP 36.8; O2SAT 97; BMI 24.0
[2022-06-05 13:03] VITALS: BP 193/81; PULSE 62; O2SAT 97
--- NOTE | 2022-06-05 14:38 | ED.BACK ---
HPI - Back Pain/Injury <Mahamed Knowles PA-C - Last Filed: 06/05/22 18:34> General Chief Complaint: Back Pain/Injury Stated Complaint: lower back pain into L hip inside leg 3wks Time Seen by Provider: 06/05/22 13:52 Source: patient History of Present Illness HPI Narrative: This is a 76-year-old female presents to the emergency department with a history of chronic back pain and lumbar surgeries with Dr. Patten presenting to the emergency department due to acute on chronic worsening back pain. She states that this time the back pain is beginning on the left and wrapping around her gluteus to her medial left thigh. She denies any urinary or bowel incontinence, significant weakness, numbness, saddle paresthesia, or any other concerning signs or symptoms. Denies any fevers or trauma to the area. Patient states that she is seen Dr. Patten for this pain but states that it is ?so bad? causing hurts to comes to the emergency department. She is a MRI scheduled for 2 days from now ordered by Dr. Patten. Related Data Home Medications Medication Instructions Recorded Confirmed krill oil 500 mg capsule 500 mg PO DAILY 05/04/19 09/17/21 levothyroxine 50 mcg capsule 50 mcg PO DAILY 05/04/19 09/23/21 premarin vaginal cream 0.05 gram vaginal 3XW 05/04/19 09/17/21 glimepiride 4 mg tablet 4 mg PO QNOON 04/06/20 09/23/21 coQ10 (liposomal ubiquinol) 100 100 mg PO DAILY 06/05/20 09/17/21 mg/mL oral liquid dicyclomine 20 mg tablet 20 mg PO Q6H PRN IBS symptoms 06/05/20 09/17/21 hydrochlorothiazide 25 mg tablet 25 mg PO DAILY 06/05/20 09/23/21 amlodipine 2.5 mg tablet 2.5 mg PO BEDTIME 09/17/21 09/23/21 carvedilol 3.125 mg tablet 3.125 mg PO BID 09/17/21 09/23/21 insulin detemir U-100 100 unit/mL 19 unit SUBCUT QAM 09/17/21 09/17/21 (3 mL) subcutaneous pen insulin detemir U-100 100 unit/mL 20 - 21 unit SUBCUT BEDTIME 09/17/21 09/17/21 (3 mL) subcutaneous pen lisinopril 40 mg tablet 40 mg PO BID 09/17/21 09/23/21 Previous Rx's Medication Instructions Recorded aspirin 81 mg chewable tablet 81 mg PO DAILY #60 tabs 06/14/20 acetaminophen 325 mg tablet 650 mg PO Q6HR PRN Pain, Mild 09/24/21 (1-3) #60 tabs docusate sodium 100 mg capsule 100 mg PO BID #20 caps 09/24/21 oxycodone 5 mg tablet 5 mg PO Q3HR PRN Pain, Severe 09/24/21 (7-10) #60 tabs cyclobenzaprine 10 mg tablet 10 mg PO TID PRN muscle spasm #20 06/05/22 tabs gabapentin 300 mg capsule 300 mg PO TID 10 days #30 caps 06/05/22 ondansetron 4 mg disintegrating 4 mg PO Q8H PRN nausea and 06/05/22 tablet vomiting #20 tabs Allergies Allergy/AdvReac Type Severity Reaction Status Date / Time adhesive tape Allergy Intermediate Redness, Verified 09/23/21 06:57 Rash nitrofurantoin Allergy Mild Rash Verified 09/23/21 06:57 sulfamethoxazole Allergy Mild slight Verified 09/23/21 06:57 [From Novra] rash trimethoprim [From Septra] Allergy Mild slight Verified 09/23/21 06:57 rash amitriptyline AdvReac Severe Drowsiness Verified 09/23/21 06:57 cephalexin AdvReac Severe GI upset Verified 09/23/21 06:57 ciprofloxacin AdvReac Severe Stomach Verified 09/23/21 06:57 ache clonidine AdvReac Severe almost Verified 09/23/21 06:57 passed out gatifloxacin [From Tequin] AdvReac Severe flushing, Verified 09/23/21 06:57 trouble sleeping hydralazine AdvReac Severe back ache Verified 09/23/21 06:57 levofloxacin [From Levaquin] AdvReac Severe flushing, Verified 09/23/21 06:57 trouble sleeping doxycycline AdvReac Intermediate sun Verified 09/23/21 06:57 sensitive losartan AdvReac Intermediate Cough Verified 09/23/21 06:57 metformin AdvReac Mild Feels Verified 09/23/21 06:57 sick while taking it Review of Systems <Mahamed Knowles PA-C - Last Filed: 06/05/22 18:34> Review of Systems Narrative: GENERAL: Denies chills, fatigue, malaise, fever, sweats. HEENT: Denies sinus pain, ear pain, sore throat, difficulty swallowing, dizziness. RESPIRATORY: Denies dyspnea, cough, wheezing, hemoptysis, sputum. CARDIOVASCULAR: Denies chest pain, palpitations, orthopnea, edema, GASTROINTESTINAL: Denies nausea, vomiting, abdominal pain, diarrhea, constipation, melena. : Denies dysuria, frequency, incontinence, hematuria, urinary retention. MUSCULOSKELETAL: denies weakness, joint pain, or bony pain SKIN: Denies rash, skin lesions, or other NEUROLOGIC: Denies weakness, headache, numbness, change in speech, confusion, seizures, incoordination. PSYCHIATRIC: No concerning psychosocial issues. Back: Left-sided lower back pain 12 point review of systems is negative except for those stated above Patient History <Mahamed Knowles PA-C - Last Filed: 06/05/22 18:34> Medical History Abnormal EKG Anesthesia complication Arthritis Cardiac arrhythmia Degenerative disc disease Diabetes mellitus, type 2 Disease of thyroid gland Edema Essential (primary) hypertension Facet arthropathy, lumbosacral Fluid retention Foraminal stenosis of lumbar region Herniated nucleus pulposus, L3-4 right Herniated nucleus pulposus, L4-5 History of echocardiogram (~02/15/20) Hyperlipidemia Hypertension Lumbar canal stenosis Multilevel foraminal stenosis Osteoarthritis Osteoarthritis of spine with radiculopathy, lumbar region Prolapse of bladder Pulled hamstring Pure hypercholesterolemia Rectal pain Sacral dysfunction Scoliosis Scoliosis due to degenerative disease of spine in adult patient Surgical History H/O pelvic surgery History of eye surgery History of fusion of lumbar spine (06/11/20) History of laminectomy History of rectopexy History of sinus surgery History of tonsillectomy History of total hysterectomy with bilateral salpingo-oophorectomy (BSO) S/P epidural steroid injection Family History Family/Other Colon cancer Grandmother Breast cancer Sister Arthritis Asthma COPD (chronic obstructive pulmonary disease) Father Cancer Mother Diabetes mellitus Heart disease Hypertension Sister Stroke Brother Vision loss Social History household members: none Smoking Status: Never smoker alcohol intake: current Smoking Status: Never smoker alcohol intake frequency: holidays/special occasions only Substance Use Type: does not use Exam <Mahamed Knowles PA-C - Last Filed: 06/05/22 18:34> Narrative Exam Narrative: GENERAL: Well-developed patient, in mild distress. HEAD: Atraumatic. Normocephalic. EYES: Pupils equal round and reactive. Extraocular motions intact. No scleral icterus. No injection or drainage. ENT: Nose without bleeding, purulent drainage. Throat without erythema, tonsillar hypertrophy or exudate. Airway patent. NECK: Trachea midline. Non tender EXTREMITIES: No edema or joint tenderness. BACK: Nontender without deformity or crepitance. No flank tenderness. NEURO: AOx3. SKIN: No rash or erythema of visible areas Back: Left-sided lumbar paraspinal tenderness to palpation. No midline tenderness to palpation. Initial Vital Signs Initial Vital Signs: Vital Signs Temperature 98.3 F 06/05/22 11:20 Pulse Rate 70 06/05/22 11:20 Respiratory Rate 18 06/05/22 11:20 Blood Pressure 217/85 H 06/05/22 11:20 Pulse Oximetry 97 06/05/22 11:20 Oxygen Delivery Method Room Air 06/05/22 11:20 <Imani Flaherty DO - Last Filed: 06/06/22 14:26> Initial Vital Signs Initial Vital Signs: Vital Signs Temperature 98.3 F 06/05/22 11:20 Pulse Rate 70 06/05/22 11:20 Respiratory Rate 18 06/05/22 11:20 Blood Pressure 217/85 H 06/05/22 11:20 Pulse Oximetry 97 06/05/22 11:20 Oxygen Delivery Method Room Air 06/05/22 11:20 Course <Mahamed Knowles PA-C - Last Filed: 06/05/22 18:34> Orders Ordered: Discontinued Medications Ketorolac Tromethamine (Ketorolac 30 Mg/Ml Vial) 15 mg IM NOW ONE Stop: 06/05/22 14:38 Last Admin: 06/05/22 14:41 Dose: 15 mg Documented By: JG Vital Signs Vital signs: Vital Signs - 8 hr 06/05/22 11:20 06/05/22 13:03 06/05/22 15:28 Temperature 98.3 F Pulse Rate 70 62 80 Respiratory Rate 18 18 Blood Pressure 217/85 H 193/81 H 170/75 H Pulse Oximetry 97 97 98 Oxygen Delivery Method Room Air Room Air <Imani Flaherty DO - Last Filed: 06/06/22 14:26> Orders Ordered: Discontinued Medications Ketorolac Tromethamine (Ketorolac 30 Mg/Ml Vial) 15 mg IM NOW ONE Stop: 06/05/22 14:38 Last Admin: 06/05/22 14:41 Dose: 15 mg Documented By: LAURA Vital Signs Vital signs: Vital Signs - 8 hr 06/05/22 11:20 06/05/22 13:03 06/05/22 15:28 Temperature 98.3 F Pulse Rate 70 62 80 Respiratory Rate 18 18 Blood Pressure 217/85 H 193/81 H 170/75 H Pulse Oximetry 97 97 98 Oxygen Delivery Method Room Air Room Air MDM - Back Pain/Injury <Mahamed Knowles PA-C - Last Filed: 06/05/22 18:34> MDM Narrative Medical decision making narrative: MDM * differential diagnosis includes but not limited to spinal abscess, vertebral fracture, lumbar strain, lower back pain with radiculopathy * Prior records reviewed: Patient was seen in the OR by Dr. Patten in 09/23/21 for 1. 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 Lumbar scoliosis 3. History of L4-S1 fusion with retained hardware Post-op diagnosis: same 1. L3-4 posterolateral and posterior interbody fusion 2. L3-4 posterior interbody cage placement 3. L4-5, L5-S1 posterior segmental instrumentation removal 4. L4-5, L5-S1 revision laminectomy with exploration of fusion 5. L3-4, L4-5, L5-S1 posterior segmental instrumentation with pedicle screw placement 6. L4-5 posterolatearl fusion 7. Gepp of bone marrow from iliac crest through a separate incision 8. Utilization of microsurgical technique and operating microscope Due to chronic back pain with worsening lumbar radiculopathy. * My lab interpretation: None obtained * My imgaing interpretation: None obtained * Clinical Decision Rules/Scores evaluated: None * Independent discussions with: None ED Course: Is a 76-year-old female presenting to the emergency department complaining of acute on chronic left-sided back pain. She is not report any urinary or bowel incontinence, saddle paresthesia, significant weakness or numbness, or any other concerning signs that would necessitate a urgent MRI. Patient does have an MRI scheduled by Dr. Patten for 2 days from now. Patient is primarily here for pain control. Patient has already been prescribed oxycodone by Dr. Patten but states that she is unable to take the full 5 mg dose secondary to nausea. Fifteen of Toradol IM will be given today as well as muscle relaxants and gabapentin prescription. Spoke with the pharmacy who stated the patient was prescribed 30 days' worth of oxycodone on 05/20/22 which was 17 days ago. Advised her to speak to Dr. Patten for further management of the oxycodone. Shared Decision Making: Discussed plan with patient who is agreeable to plan Social Considerations: None Disposition: Discharged to home Discharge Plan Departure Patient Disposition: Home Clinical Impression: Lower back pain Activity Restrictions/Additional Instructions: Thank you for coming to the [facility] Emergency Department today. As we discussed I advise you speak to Dr. Patetn for further refills of your oxycodone as he seems to be primarily in charge managing this. Please take the muscle relaxants and gabapentin this may help with your pain as well. The Toradol give me today should help as well. Please have the MRI done that was ordered by Dr. Patten this Thursday and follow up with him for further recommendations and management regarding your back pain. I hope you feel better soon. Prescriptions: New cyclobenzaprine 10 mg tablet 10 mg PO TID PRN (Reason: muscle spasm) Qty: 20 0RF ondansetron 4 mg tablet,disintegrating 4 mg PO Q8H PRN (Reason: nausea and vomiting) Qty: 20 0RF gabapentin 300 mg capsule 300 mg PO TID 10 Days Qty: 30 0RF No Action dicyclomine 20 mg Tablet 20 mg PO Q6H PRN (Reason: IBS symptoms) hydrochlorothiazide 25 mg Tablet 25 mg PO DAILY coQ10 (liposomal ubiquinol) 100 mg/mL Liquid 100 mg PO DAILY aspirin 81 mg tablet,chewable 81 mg PO DAILY Qty: 60 0RF amlodipine 2.5 mg Tablet 2.5 mg PO BEDTIME insulin detemir U-100 100 unit/mL (3 mL) Insulin Pen 20 - 21 unit SUBCUT BEDTIME insulin detemir U-100 100 unit/mL (3 mL) Insulin Pen 19 unit SUBCUT QAM carvedilol 3.125 mg Tablet 3.125 mg PO BID Rx Instructions: must administer with a meal/food lisinopril 40 mg Tablet 40 mg PO BID acetaminophen 325 mg Tablet 650 mg PO Q6HR PRN (Reason: Pain, Mild (1-3)) Qty: 60 0RF docusate sodium 100 mg Capsule 100 mg PO BID Qty: 20 0RF oxycodone 5 mg Tablet 5 mg PO Q3HR PRN (Reason: Pain, Severe (7-10)) Qty: 60 0RF levothyroxine 50 mcg capsule 50 mcg PO DAILY premarin vaginal cream 0.05 gram vaginal 3XW krill oil 500 mg capsule 500 mg PO DAILY glimepiride 4 mg tablet 4 mg PO QNOON Referrals: Manisha Anderson I, CHAITANYA [Primary Care Provider] - Stand Alone Forms: Patient Portal/API <Imain Flaherty DO - Last Filed: 06/06/22 14:26> Cosign ED Attending Richyature Attestation: Abbie was immediately available in the department for consultation. Documentation has been reviewed.
[2022-06-05] MEDS: KETOROLAC 30 MG/ML VIAL 15 MG IM (14:41)
[2022-06-05 15:28] VITALS: BP 170/75; PULSE 80; RESP 18; O2SAT 98
== END 2022-06-05 15:29 | disposition home or self-care (01) ==
PROVIDERS: Emergency Provider Physician Assistant Medical; PCP Physician Assistant
DX: M54.50 Low back pain, unspecified (principal)
CPT/HCPCS: 96372; 99283; J1885

== ENCOUNTER → 2022-06-07 13:33 | Outpatient (CLI) | payer MEDICARE, OTHER, SELFPAY ==
[2021-09-23 13:29] VITALS: BMI 23.8
--- NOTE | 2022-06-07 | DI.MRI.S_ITS ---
PROCEDURE: MR LUMBAR SPINE WO CON INDICATIONS: LUMBAR AND CERVICAL STENOSIS TECHNIQUE: Noncontrast sagittal T1 spin echo and T2 fast echo, sagittal STIR, and T2 fast spin echo through the lumbar spine. In cases with scoliosis, additional coronal T2 fast spin echo may be performed. COMPARISON: [facility], MR, MR LUMBAR SPINE WITHOUT CONTRAST, 03/01/2021, 7:54. [facility] [place], CR, XR LUMBAR SPINE 2 OR 3 VIEWS, 04/08/2022, 16:17. FINDINGS: Image quality: Excellent. Alignment and Curvature: There is normal bony alignment. Remote posterior lateral danielle and pedicle screw fixation from L3 through S1 with interbody spacer placement at L3-L4, L4-L5, and L5-S1. Extension of previous L4 through S1 fusion since the prior MRI to include the L3 vertebral body as well. Bone Marrow: Marrow is of normal overall signal. No acute vertebral body compression fractures. Spinal Cord: Conus medullaris terminates at the T12-L1 level. Visualized cord demonstrates normal signal and size. Paraspinous Soft Tissues: No paravertebral masses. T12-L1: No canal stenosis or foraminal stenosis. L1-L2: Stable findings. Chronic disc height loss. Posterior disc plus osteophyte. Superimposed shallow left paracentral disc extrusion which somewhat narrows the left lateral recess. Moderate central canal stenosis. Mild right foraminal narrowing. Moderate left foraminal narrowing. L2-L3: Unchanged findings. Mild central canal stenosis. Mild left foraminal stenosis. L3-L4: Interval posterior decompression and posterior lateral fixation. There is significant improvement in the canal stenosis. Left facet hypertrophy results in [id number] narrowing of the left side of the canal. L4-L5: Remote left hemilaminectomy and fusion. Mild residual canal stenosis. Moderate to severe left foraminal narrowing with a degree of left foraminal L4 nerve root impingement. Moderate right foraminal narrowing. L5-S1: Remote fusion. No canal stenosis or foraminal stenosis. IMPRESSION: 1. Interval posterior decompression and posterior lateral fusion at L3-L4 with significant improvement. Left facet hypertrophy results in [id number] narrowing of the left side of the canal. 2. Canal stenosis is moderate at L1-L2 and mild at L2-L3. 3. Multilevel foraminal narrowing as described above, including moderate to severe left foraminal narrowing at L4-L5 with a degree of left foraminal L4 nerve root impingement. Dictated by: Will Pacheco M.D. on 06/09/2022 at 13:51 Approved by: Will Pacheco M.D. on 06/09/2022 at 14:10
--- NOTE | 2022-06-07 | DI.MRI.S_ITS ---
PROCEDURE: MR CERVICAL SPINE WO CON INDICATIONS: LUMBAR AND CERVICAL STENOSIS TECHNIQUE: Noncontrast sagittal T1 spin echo and T2 fast spin echo, sagittal STIR, foraminal oblique sagittal T2 fast spin echo, and axial gradient echo or T2 fast spin echo through the cervical spine. COMPARISON: None. FINDINGS: Image quality: Excellent. Alignment and Curvature: Trace retrolisthesis of C3 on C4. Retrolisthesis of C5 on C6 measures approximately 5 mm. There is associated posterior osteophyte. There is trace degenerative retrolisthesis of C6 on C7. Bone Marrow: Marrow demonstrates normal overall signal. Spinal Cord: Visualized spinal cord has normal size and signal. No cerebellar tonsillar herniation. Paraspinous Soft Tissues: No paravertebral masses. Prevertebral soft tissues are normal in thickness. C2-C3: Mild central posterior disc protrusion. AP diameter of the canal is 9.5 mm. Right facet hypertrophy. No foraminal stenosis. C3-C4: Posterior disc post osteophyte. AP diameter of the canal is 9.5 mm. Bilateral uncovertebral joint hypertrophy and facet hypertrophy. Mild bilateral foraminal narrowing. C4-C5: Diffuse posterior disc post osteophyte with superimposed central posterior disc protrusion which is of high signal, possibly indicating relative acuity. This significantly indents on the cord. AP diameter of the canal is 7.4 mm. There is bilateral uncovertebral joint hypertrophy and facet hypertrophy. There is severe bilateral foraminal narrowing with bilateral foraminal C5 nerve root impingement. C5-C6: There is large posterior osteophyte which significantly impinges on the cord. AP diameter of the canal is 6 mm. There are uncovertebral joint osteophytes which are large. There is bilateral facet hypertrophy. There is marked bilateral foraminal narrowing with bilateral foraminal C6 nerve root impingement. C6-C7: Diffuse posterior disc plus osteophyte flattens the cord. AP diameter of the canal is 7.4 mm. There is bilateral uncovertebral joint hypertrophy. There is moderate to severe right foraminal narrowing and severe left foraminal narrowing with bilateral foraminal C7 nerve root impingement. C7-T1: Posterior disc bulge. No significant canal stenosis or foraminal stenosis. T1-T2: Diffuse posterior disc protrusion, eccentric to the left, with superimposed inferior left paracentral disc extrusion with mild central canal stenosis and severe left lateral recess stenosis. IMPRESSION: 1. Extensive cervical spondylitic change with multilevel uncovertebral joint hypertrophy and facet arthropathy. 2. Canal stenosis is mild at C2-C3, mild at C3-C4, moderate to severe at C4-C5, severe at C5-C6, and moderate to severe at C6-C7. 3. Significant multilevel foraminal narrowing with multilevel foraminal nerve root impingement as described above. Dictated by: Will Pacheco M.D. on 06/09/2022 at 9:01 Approved by: Will Pacheco M.D. on 06/09/2022 at 9:23
== END ==
PROVIDERS: PCP Physician Assistant; Referring Provider Orthopaedic Surgery Orthopaedic Surgery of the Spine; Visit Provider Orthopaedic Surgery Orthopaedic Surgery of the Spine
DX: M48.062 Spinal stenosis, lumbar region with neurogenic claudication (principal); M48.02 Spinal stenosis, cervical region; M47.812 Spondylosis without myelopathy or radiculopathy, cervical region
CPT/HCPCS: 72141; 72148

== ENCOUNTER 2024-08-25 13:57 | Outpatient (CLI) | payer MEDICARE, OTHER, SELFPAY ==
[2021-09-23 13:29] VITALS: BMI 23.8
[2024-08-25] VITALS (9 sets, daily range): BP systolic 146–215; BP diastolic 67–86; PULSE 54–64; RESP 16–18; TEMP 36.4; O2SAT 98–99
[2024-08-25] MEDS: MIDAZOLAM 2 MG/2 ML VIAL IV (16:00)
[2024-08-25] MEDS: iopamidoL 15 ML VIAL 3 ML INJ (16:08)
[2024-08-25] MEDS: BETAMETHASONE 30 MG/5 ML MDV 12 MG INJ (16:09)
[2024-08-25] MEDS: BUPIVACAINE 0.5% (PF) 10 ML VIAL 2 ML INJ (16:09)
--- NOTE | 2024-08-25 16:19 | PM.PROC.IR.1 ---
Date/Time/Diagnoses Date of procedure: 08/25/24 Time of procedure: 16:20 Pre-procedure diagnosis: Sacroiliac joint pain/DJD Post-procedure diagnosis: same Procedure Notes Procedure: Fluoroscopically guided contrast controlled right sacroiliac joint injection Indications: Louise is referred by CHITO Anderson for treatment of right sacroiliac joint DJD Physician: Bentley Barriga Total Fluoroscopy time (seconds): 5 Total sedation minutes: 12 Complications: none Procedure in detail & Post-procedure care: DESCRIPTION OF PROCEDURE Fluoroscopically guided, contrast controlled right sacroiliac joint injection Following review of allergies and review of potential side effects and complications, including, but not necessarily limited to, infection, allergic reaction, local tissue breakdown, temporary as well as permanent nerve injury, paralysis, stroke and possible , the patient indicated that they understood and agreed to proceed. An informed consent was signed by the patient, witnessed by a nurse, and placed in the patient's chart. Additionally, other treatment options including modalities, medications, and physical therapy were reviewed with the patient. After review of previous anaesthesic history and IV conscious sedation the patient was deemed safe to proceed with today?s procedure with IV conscious sedation as ASA class II designation. Safety time-out was performed to confirm patient ID, procedure to be performed and site of procedure. IV sedation was accomplished with a combination of 2mg of Versed was administered by the RN after DO order, titrated to patient comfort during the course of the procedure while the patient remained responsive to all verbal commands In the prone position following sterile prep and drape of the pelvic region, the hyper lucency on in the inferior aspect of the sacroiliac joint was identified fluoroscopically the skin was anesthetized be a 25 gauge 1 eventual with approximately 2 cc of 1% lidocaine solution. At this point, a 22 gauge 3 in spinal needle was atraumatically introduced and advanced under fluoroscopic guidance into the inferior aspect of the right sacroiliac joint. Following negative aspiration, approximately 0.3cc of [id number]-300 was injected confirming intra-articular placement without vascular uptake. Radiographic data, including multiple fluoroscopic views of the pelvis, reveals a spinal needle in the sacroiliac joint hyper lucent zone. Subsequent view show flow contrast tear superiorly and inferiorly within the joint capsule without vascular intrathecal uptake. At this point a total of 1cc of 0.5% Marcaine was combined with 2cc of 12mg of betamethasone was injected without incident. The procedure tolerated the procedure well without signs or symptoms of complications prior to transfer to the recovery area continued monitoring without incident. The patient was then transferred to the recovery area with a bur observed for an appropriate time after the injection. The patient reverted a vas score of 9 prior to the procedure and post-procedure vas of 1. POSTOP INSTRUCTIONS The patient was provided with a pain like to continue to record the patient's response to the target specific procedure prior to the patient's follow-up visit with the referring physician. Additionally, specific post injection care instructions and a contact number to our office were provided if concerns arise regarding the possible complications associated with procedure are suspected.
== END 2024-08-25 16:35 | disposition home or self-care (01) ==
LOC: RAD 13:58
PROVIDERS: PCP Physician Assistant; Referring Provider Physical Medicine & Rehabilitation; Visit Provider Physical Medicine & Rehabilitation
DX: M53.3 Sacrococcygeal disorders, not elsewhere classified (principal); M46.1 Sacroiliitis, not elsewhere classified; M41.80 Other forms of scoliosis, site unspecified; Z98.1 Arthrodesis status
CPT/HCPCS: 27096; 99152; J0702; J2250

== ENCOUNTER 2024-10-25 14:08 | Outpatient (CLI) | payer MEDICARE, OTHER, SELFPAY ==
[2021-09-23 13:29] VITALS: BMI 23.8
[2024-10-25] VITALS (7 sets, daily range): BP systolic 138–193; BP diastolic 66–88; PULSE 59–63; RESP 16; TEMP 36.6; O2SAT 98–100
[2024-10-25] MEDS: MIDAZOLAM 2 MG/2 ML VIAL IV (15:41)
[2024-10-25] MEDS: BUPIVACAINE 0.5% (PF) 10 ML VIAL 2 ML INJ (15:47)
--- NOTE | 2024-10-25 16:03 | P.PCN_ITS ---
Date/Time/Diagnoses Date of procedure: 10/25/24 Time of procedure: 16:03 Pre-procedure diagnosis: 1. FACET ARTHROPATHY Post-procedure diagnosis: same Procedure Notes Procedure: 1. Right L1, L2, L3 MBB LA Indications: Louise is referred by CHITO Anderson for treatment of Right Axial LBP. Physician: Bentley Barriga Total Fluoroscopy time (seconds): 14 Total sedation minutes: 15 Complications: none Procedure in detail & Post-procedure care: DESCRIPTION OF PROCEDURE Fluoroscopically guided, contrast-controlled right L1, L2, L3 medial branch blocks with 0.5cc of 0.5% Marcaine. Following review of allergy and review of potential side effects and complications, including, but not necessarily limited to, infection, allergic reaction, local tissue breakdown, nerve injury, paralysis, stroke and possible , the patient indicated that the patient understood and agreed to proceed. An informed consent document was signed by the patient, witnessed by a nurse, and placed in the patient's chart. After review of previous anaesthesic history and IV conscious sedation the patient was deemed safe to proceed with today?s procedure with IV conscious sedation as ASA class II designation. Safety time-out was performed to confirm patient ID, procedure to be performed and site of procedure. IV sedation was accomplished with a combination of 2mg of Versed was administered by the RN after DO order, titrated to patient comfort during the course of the procedure while the patient remained responsive to all verbal commands In the prone position, following sterile prep and drape of the lumbar region, the right L1, L2, L3 anatomical location of the medial branch of the dorsal ramus was identified fluoroscopically. Subsequently an anesthetic skin wheal using 1% lidocaine solution was initiated at each of the anatomical spots. Subsequently then a 22-gauge 3.5-inch spinal needle was atraumatically introduced and advanced under fluoroscopic guidance at each of the corresponding sites at the right L1, L2, L3 MB. After negative aspiration, 0.2 cc of Isovue 200 was injected, confirming placement without vascular or intrathecal uptake. Subsequently then 0.5cc of 0.5% Marcaine solution was injected at each of the corresponding sites at the right L1, L2, L3 medial branch locations. The patient tolerated the procedure well without signs or symptoms of complications. The procedure tolerated the procedure well without signs or symptoms of complications prior to transfer to the recovery area continued monitoring without incident. Post-procedure, the patient was monitored initiating provocative activities to measure the amount of relief from block of the facetogenic pain. The patient reported a VAS of 7 prior to the procedure and a post-procedure VAS of 1. It has been a pleasure to assist in the diagnostic and therapeutic care of your patient. POST OP INSTRUCTIONS The patient was provided with a Pain Log to complete over the next several hours and subsequent days prior to the patient's follow up with the ordering physician. 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 The patient is aware, was provided, once again, with a Pain Log and will follow up with the referring physician for review and clinical correlation.
== END 2024-10-25 16:15 | disposition home or self-care (01) ==
PROVIDERS: PCP Physician Assistant; Referring Provider Physician Assistant; Visit Provider Physical Medicine & Rehabilitation
DX: M47.816 Spondylosis without myelopathy or radiculopathy, lumbar region (principal)
CPT/HCPCS: 64493; 64494; 99152; J2250

== ENCOUNTER 2024-12-13 13:25 | Outpatient (CLI) | payer MEDICARE, OTHER, SELFPAY ==
[2024-11-09 10:01] VITALS: BMI 23.8
[2024-12-13] VITALS (8 sets, daily range): BP systolic 146–196; BP diastolic 61–81; PULSE 54–59; RESP 16–21; TEMP 36.7; O2SAT 97–100
[2024-12-13] MEDS: MIDAZOLAM 2 MG/2 ML VIAL IV (14:51)
[2024-12-13] MEDS: LIDOCAINE 2% INJ MDV 20ML 5 ML INJ (14:55)
--- NOTE | 2024-12-13 15:09 | PM.PROC.IR.1 ---
Date/Time/Diagnoses Date of procedure: 12/13/24 Time of procedure: 15:10 Pre-procedure diagnosis: 1. FACET ARTHROPATHY Post-procedure diagnosis: same Procedure Notes Procedure: 1. Right L1, L2, L3 MB BLOCKS Indications: Louise is referred by CHITO Anderson for treatment of Right Axial LBP. Physician: Bentley Barriga Total Fluoroscopy time (seconds): 12 Total sedation minutes: 15 Complications: none Procedure in detail & Post-procedure care: DESCRIPTION OF PROCEDURE Fluoroscopically guided, contrast-controlled right L1, L2, L3 medial branch blocks with 0.5cc of 2% Lidocaine. Following review of allergy and review of potential side effects and complications, including, but not necessarily limited to, infection, allergic reaction, local tissue breakdown, nerve injury, paralysis, stroke and possible , the patient indicated that the patient understood and agreed to proceed. An informed consent document was signed by the patient, witnessed by a nurse, and placed in the patient's chart. After review of previous anaesthesic history and IV conscious sedation the patient was deemed safe to proceed with today?s procedure with IV conscious sedation as ASA class II designation. Safety time-out was performed to confirm patient ID, procedure to be performed and site of procedure. IV sedation was accomplished with a combination of 2mg of Versed was administered by the RN after DO order, titrated to patient comfort during the course of the procedure while the patient remained responsive to all verbal commands In the prone position, following sterile prep and drape of the lumbar region, the right L1, L2, L3 anatomical location of the medial branch of the dorsal ramus was identified fluoroscopically. Subsequently an anesthetic skin wheal using 1% lidocaine solution was initiated at each of the anatomical spots. Subsequently then a 22-gauge 3.5-inch spinal needle was atraumatically introduced and advanced under fluoroscopic guidance at each of the corresponding sites at the right L1, L2, L3 MB. After negative aspiration, 0.2 cc of Isovue 200 was injected, confirming placement without vascular or intrathecal uptake. Subsequently then 0.5cc of 2% Lidocaine solution was injected at each of the corresponding sites at the right L1, L2, L3 medial branch locations. The patient tolerated the procedure well without signs or symptoms of complications. The procedure tolerated the procedure well without signs or symptoms of complications prior to transfer to the recovery area continued monitoring without incident. Post-procedure, the patient was monitored initiating provocative activities to measure the amount of relief from block of the facetogenic pain. The patient reported a VAS of 7 prior to the procedure and a post-procedure VAS of 1. It has been a pleasure to assist in the diagnostic and therapeutic care of your patient. POST OP INSTRUCTIONS The patient was provided with a Pain Log to complete over the next several hours and subsequent days prior to the patient's follow up with the ordering physician. 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 The patient is aware, was provided, once again, with a Pain Log and will follow up with the referring physician for review and clinical correlation.
== END 2024-12-13 15:26 | disposition home or self-care (01) ==
LOC: RAD 13:26
PROVIDERS: PCP Physician Assistant; Referring Provider Physician Assistant; Visit Provider Physical Medicine & Rehabilitation
DX: M47.816 Spondylosis without myelopathy or radiculopathy, lumbar region (principal)
CPT/HCPCS: 64493; 64494; 99152; J2250

== ENCOUNTER 2025-01-19 07:16 | Outpatient (CLI) | payer MEDICARE, OTHER, SELFPAY ==
[2024-11-09 10:01] VITALS: BMI 23.8
[2025-01-19] VITALS (10 sets, daily range): BP systolic 134–172; BP diastolic 60–73; PULSE 55–60; RESP 14–20; O2SAT 97–99
[2025-01-19] MEDS: MIDAZOLAM 2 MG/2 ML VIAL IV (08:35)
[2025-01-19] MEDS: LIDOCAINE 1% 20 ML 5 ML INJ (08:41)
--- NOTE | 2025-01-19 09:04 | P.PCN_ITS ---
Date/Time/Diagnoses Date of procedure: 01/19/25 Time of procedure: 09:04 Pre-procedure diagnosis: 1. RECALCITRANT FACET ARTHROPATHY Post-procedure diagnosis: same Procedure Notes Procedure: 1. RIGHT L1, L2, L3 MEDIAL BRANCH RADIOFREQUENCY NEUROTOMY Indications: Louise is referred by CHITO Anderson for treatment of facet arthropathy. Physician: Bentley Barriga Total Fluoroscopy time (seconds): 9 Total sedation minutes: 23 Complications: none Procedure in detail & Post-procedure care: DESCRIPTION OF PROCEDURE Right L2, L3 and L4 medial branch radio-frequency neurotomy The patient is well known to this clinic having undergone previous facet injections with good but temporary relief. The patient has experienced appropriate, concordant relief with previous facet and median branch blocks but the patient's pain has been recalcitrant to further conservative measures. Therefore, based upon the patient's relief and persistent symptoms, the patient is considered an appropriate candidate for facet rhizotomy. All of the patient's questions regarding the risks versus benefits of the procedure, including, but not limited to, bleeding, infection, temporary as well as lasting nerve injury, paralysis, stroke, and , as well treatment alternatives were answered to satisfaction. After obtaining informed consent, denial of pertinent drug allergies, as well as being made aware of the potential risks of bleeding, infection, spinal cord trauma, paralysis, temporary and permanent nerve damage, seizure, stroke, and possible , the patient was brought to the fluoroscopy suite and positioned prone on the fluoroscopy table. The lumbar region was prepped with Betadine and covered with a fenestrated drape in the usual sterile fashion. Appropriate monitors applied including pulse oximeter, pulse, and blood pressure for regular monitoring throughout the procedure. After review of previous anaesthesic history and IV conscious sedation the patient was deemed safe to proceed with today?s procedure with IV conscious sedation as ASA class II designation. Safety time-out was performed to confirm patient ID, procedure to be performed and site of procedure. IV sedation was accomplished with a combination of 2mg of Versed administered by the RN after DO order, titrated to patient comfort during the course of the procedure while the patient remained responsive to all verbal commands. After local infiltration using 1% lidocaine, under fluoroscopic guidance, a 10- cm RF insulated needle with a 10-mm active tip was positioned parallel to the junction of the right the superior articulating process where the L1 medial branch resides. Needle placement was confirmed with sensory stimulation at 50 Hz, with motor stimulation of .5v on the right which produced local stimulation without radicular component. The stimulation was then increased to 2v with, once again, only local multifidus stimulation without radicular component. This was then followed by two discreet lesions performed at 80 degrees Celsius for 90 seconds each. The needle was then removed and the identical procedure was performed along the length of the right L2 medial branch with motor stimulation at .7v on the right. The identical procedure was once again performed along the length of the right L3 and medial branch with motor stimulation of .5v on the right. The patient tolerated the procedure well without signs or symptoms of complications prior to transfer to the recovery area continued monitoring without incident. The patient was then transferred to the recovery area where they were observed for an appropriate period of time after the injection. The patient reported a VAS score of 7 prior to the procedure and a post-procedure VAS of 1. POST OP INSTRUCTIONS The patient was provided a Pain Log to continue to record the patient's response to the target-specific procedure prior to the patient's follow-up visit with the referring physician. Additionally, specific post-injection care instructions and a contact number to our office were provided if concerns arise regarding possible complications associated with the procedure are suspected.
== END 2025-01-19 09:27 | disposition home or self-care (01) ==
LOC: RAD 07:17
PROVIDERS: PCP Physician Assistant; Referring Provider Physician Assistant; Visit Provider Physical Medicine & Rehabilitation
DX: M47.816 Spondylosis without myelopathy or radiculopathy, lumbar region (principal)
CPT/HCPCS: 64635; 64636; 99152; 99153; J2250